=== PATIENT | female | born 1975 | race Caucasian/White ===

== ENCOUNTER 2017-04-08 18:43 | Emergency (ER) | payer OTHER ==
[~2017-04-08] VITALS: Ht 162.6 cm; Wt 98.0 kg
[~2017-04-08 18:43] MED LIST: ONDA8TAB6 PO
[2017-04-08 18:59] VITALS: TEMP 36.7; Ht 162.6 cm; Wt 98.0 kg
[2017-04-08] MEDS ORDERED: ONDANSETRON INJ 2 MG/ML 2 ML VIAL IV STA (19:04)
[2017-04-08] MEDS ORDERED: FAMOTIDINE IV INJ 20 MG in DEXTROSE 5% 100ML 100 ML IV STA (19:04)
[2017-04-08] MEDS ORDERED: LIDOCAINE HCL 2% VISC SOLN 20 ML UDC PO STA (19:04)
[2017-04-08] MEDS ORDERED: ALUMINUM/MAGNESIUM SUSP 30 ML UDC PO STA (19:04)
[2017-04-08] MEDS ORDERED: SERT50TA PO (19:28)
[2017-04-08 19:36] LABS: BASO % 0.3 %; BASO ABS # 0.02 K/uL (0-0.2); EOS % 0.2 %; EOS ABS # 0.01 K/uL (0-0.5); HEMATOCRIT 42.6 % (37-47); IG# 0.02 K/uL (0.00-0.02); LYMPH ABS # 2.43 K/uL (1.2-3.4); MEAN CELL VOLUME 86.6 fL (80-100); MEAN CORPUSCULAR HEMOGLOBIN 28.5 pg (25-34); MEAN CORPUSCULAR HGB CONC 32.9 g/dl (32-36); MEAN PLATELET VOLUME 10.6 fL (7.4-10.4); MONO % 14.4 %; NEUT % 45.8 %; NEUT ABS # 2.85 K/uL (1.4-6.5); PLATELET COUNT 270 K/uL (130-400); RED CELL DISTRIBUTION WIDTH CV 14.1 % (11.5-14.5); RED CELL DISTRIBUTION WIDTH SD 44.7 fL (36.4-46.3); WHITE BLOOD COUNT 6.23 K/uL (4.8-10.8)
[2017-04-08 20:14] LABS: ALBUMIN 3.6 gm/dl (3.4-5.0); ALKALINE PHOSPHATASE 90 U/L (45-117); ALT/SGPT 24 U/L (12-78); AST/SGOT 18 U/L (15-37); BLOOD UREA NITROGEN 18 mg/dl (7-18); CALCIUM 9.1 mg/dl (8.5-10.1); CARBON DIOXIDE 27 mmol/L (21-32); CREATININE 0.86 mg/dl (0.60-1.20); GLUCOSE 98 mg/dl (70-99); LIPASE 122 U/L (73-393); POTASSIUM 3.5 mmol/L (3.5-5.1); SODIUM 143 mmol/L (136-145); TOTAL PROTEIN 7.8 gm/dl (6.4-8.2)
[2017-04-08 20:22] LABS: INFLUENZA B ANTIGEN Neg for Influ B (NEG)
--- NOTE | 2017-04-08 20:39 | DIAGNOSTIC IMAGING REPORT ---
CHEST 2 VIEWS ROUTINE HISTORY: Fever. COMPARISON: Chest 12/25/2014. FINDINGS: The lungs are clear. Cardiac silhouette is normal in size. No pleural effusions. No pneumothorax. Prior cholecystectomy. IMPRESSION: No acute process. Electronically signed by: Derrick Velázquez M.D. 04/08/2017 8:38 PM Dictated Date/Time: 04/08/2017 8:36 PM
[2017-04-08] MEDS ORDERED: OPTIRAY 320 IV PRN (21:45)
--- NOTE | 2017-04-08 22:19 | DIAGNOSTIC IMAGING REPORT ---
ABDOMEN AND PELVIS CT WITH IV AND ORAL CONTRAST CT DOSE: 1119.60 mGy.cm HISTORY: Generalized abdominal pain. Crohn's disease. TECHNIQUE: Multiaxial CT images of the abdomen and pelvis were performed following the use of intravenous and oral contrast. A dose lowering technique was utilized adhering to the principles of ALARA. COMPARISON STUDY: Abdomen and pelvis CT 10/10/2011. FINDINGS: The lung bases are clear. No pneumoperitoneum. No pneumatosis. No fractures within the visualized osseous structures. Cholecystectomy. The liver, pancreas, spleen, adrenal glands are unremarkable. Punctate bilateral renal axillae. No ureteral calculi. No hydronephrosis. There are few hypodense lesions within the kidneys. These are subcentimeter in size and therefore too small to characterize. Statistically these represent cysts. No retroperitoneal lymphadenopathy. Normal bladder. No bowel wall thickening or obstruction. Normal appendix. IMPRESSION: 1. No bowel wall thickening or obstruction. 2. Normal appendix. 3. Bilateral nephrolithiasis. No ureteral stones. No hydronephrosis. Electronically signed by: Derrick Velázquez M.D. 04/08/2017 10:17 PM Dictated Date/Time: 04/08/2017 10:11 PM
[2017-04-08] MEDS ORDERED: SUCR1TAB29 PO (22:32)
[2017-04-08] MEDS ORDERED: PRT/20 PO (22:32)
[2017-04-08 22:43] VITALS: BP 108/70; PULSE 77; O2SAT 95
[2017-04-08] MEDS ORDERED: ONDA4TAB10 SL (23:39)
--- NOTE | 2017-04-09 00:07 | EMERGENCY ROOM VISIT NOTE ---
History Report prepared by Eduardo: Sarah Manley Under the Supervision of: Dr. Cristo Liu M.D. First contact with patient: 18:53 Chief Complaint: ABDOMINAL PAIN Stated Complaint: ABD PAIN, BLACK TARRY STOLE History of Present Illness The patient is a 41 year old female who presents to the Emergency Room with complaints of constant upper abdominal pain since April 04, 2017. She describes the pain as sharp and is radiating straight to her back. She notes that she could not sleep due to the pain. She currently rates her pain a 7/10 in severity. She notes nausea associated with the pain. She noticed black tarry stools last night and then took Pepto Bismol after she noticed the stools. She describes it as diarrhea with soft stools. She was recently seen by her PCP for strep throat and an upper respiratory infection. She was prescribed Prednisone and Zithromax. She notes chest pain that began this morning and has worsened. She notes that she feels feverish, though has not checked her temperature. She reports body aches, coughs, dizziness, and general weakness. She denies any blood in urine or other urinary symptoms. She has a history of hysterectomy, cholecystectomy, H. pylori, and ulcers. She also states a history of Crohn's disease, though she has not had a flare up in six years. Source of History: patient Onset: April 04, 2017 Position: abdomen (upper) Symptom Intensity: 7/10 Quality: sharp Timing: constant Associated Symptoms: + cough, + chest pain, + nausea, + back pain ( abdominal pain radiating straight to back), + diarrhea (soft stools), + weakness (general), No urinary symptoms (no blood in urine) Note: She notes black tarry stools. She feels feverish. She reports body aches and dizziness. Review of Systems See HPI for pertinent positives & negatives. A total of 10 systems reviewed and were otherwise negative. Past Medical & Surgical Medical Problems: (1) Crohns disease (2) Gastroenteritis (3) Headache (4) Migraine (5) Migraine Unspecified W/O Intract Mgrn W/O Status Migrainosus (6) Renal Colic (7) Tachycardia Family History FH: lung disease FHx: cancer FHx: gallbladder disease Social History Smoking Status: Former Smoker Alcohol Use: none Marital Status: Housing Status: lives with family Occupation Status: employed Current/Historical Medications Scheduled Ondasetron Odt (Zofran Odt), 4 MG SL Q6H Pantoprazole (Protonix), 20 MG PO DAILY Sertraline (Zoloft), 50 MG PO DAILY Sucralfate (Carafate), 1 GM PO Q6 Scheduled PRN Ondansetron Hcl (Zofran), 8 MG PO Q6H PRN for Nausea Allergies Coded Allergies: No Known Allergies (Verified , 04/08/17) Physical Exam Vital Signs Date Time Temp Pulse Resp B/P (MAP) Pulse Ox O2 Delivery O2 Flow Rate FiO2 04/08/17 22:43 77 16 108/70 95 04/08/17 21:19 81 16 120/83 94 Room Air 04/08/17 20:08 78 16 120/83 98 Room Air 04/08/17 18:59 36.7 96 18 124/79 97 Room Air Physical Exam Constitutional: Vital signs reviewed. Eyes: Pupils are equal round reactive to light. Conjunctiva are noninjected. ENT: Pharynx is clear without erythema or exudate. Mucous membranes are moist. Neck supple without meningeal signs. Respiratory: Clear to auscultation bilaterally. Breath sounds are equal bilaterally. Cardiovascular: Regular rate and rhythm. No rubs or gallops. GI: Soft, nondistended and epigastric tenderness, no guarding. Bowel sounds are present. Musculoskeletal: No peripheral edema. No CVA tenderness. Integumentary: No cyanosis. Neurological: The patient is awake and alert. No focal deficits. Psychiatric: Normal affect. Medical Decision & Procedures ER Provider Diagnostic Interpretation: Radiology results as stated below per my review and the radiologist's interpretation: CHEST 2 VIEWS ROUTINE HISTORY: Fever. COMPARISON: Chest 12/25/2014. FINDINGS: The lungs are clear. Cardiac silhouette is normal in size. No pleural effusions. No pneumothorax. Prior cholecystectomy. IMPRESSION: No acute process. Electronically signed by: Derrick Velázquez M.D. 04/08/2017 8:38 PM Dictated Date/Time: 04/08/2017 8:36 PM ABDOMEN AND PELVIS CT WITH IV AND ORAL CONTRAST CT DOSE: 1119.60 mGy.cm HISTORY: Generalized abdominal pain. Crohn's disease. TECHNIQUE: Multiaxial CT images of the abdomen and pelvis were performed following the use of intravenous and oral contrast. A dose lowering technique was utilized adhering to the principles of ALARA. COMPARISON STUDY: Abdomen and pelvis CT 10/10/2011. FINDINGS: The lung bases are clear. No pneumoperitoneum. No pneumatosis. No fractures within the visualized osseous structures. Cholecystectomy. The liver, pancreas, spleen, adrenal glands are unremarkable. Punctate bilateral renal axillae. No ureteral calculi. No hydronephrosis. There are few hypodense lesions within the kidneys. These are subcentimeter in size and therefore too small to characterize. Statistically these represent cysts. No retroperitoneal lymphadenopathy. Normal bladder. No bowel wall thickening or obstruction. Normal appendix. IMPRESSION: 1. No bowel wall thickening or obstruction. 2. Normal appendix. 3. Bilateral nephrolithiasis. No ureteral stones. No hydronephrosis. Electronically signed by: Derrick Velázquez M.D. 04/08/2017 10:17 PM Dictated Date/Time: 04/08/2017 10:11 PM Laboratory Results 04/08/17 19:15 Red Blood Count 4.92, Mean Corpuscular Volume 86.6, Mean Corpuscular Hemoglobin 28.5, Mean Corpuscular Hemoglobin Concent 32.9, Mean Platelet Volume 10.6, Neutrophils (%) (Auto) 45.8, Lymphocytes (%) (Auto) 39.0, Monocytes (%) (Auto) 14.4, Eosinophils (%) (Auto) 0.2, Basophils (%) (Auto) 0.3, Neutrophils # (Auto ) 2.85, Lymphocytes # (Auto) 2.43, Monocytes # (Auto) 0.90, Eosinophils # (Auto ) 0.01, Basophils # (Auto) 0.02 04/08/17 19:15 Test 04/08/17 19:05 04/08/17 19:15 04/08/17 21:45 Influenza Type A Antigen Neg for Influ A (NEG) Influenza Type B Antigen Neg for Influ B (NEG) White Blood Count 6.23 K/uL (4.8-10.8) Red Blood Count 4.92 M/uL (4.2-5.4) Hemoglobin 14.0 g/dL (12.0-16.0) Hematocrit 42.6 % (37-47) Mean Corpuscular Volume 86.6 fL (80-100) Mean Corpuscular Hemoglobin 28.5 pg (25-34) Mean Corpuscular Hemoglobin Concent 32.9 g/dl (32-36) Platelet Count 270 K/uL (130-400) Mean Platelet Volume 10.6 fL (7.4-10.4) Neutrophils (%) (Auto) 45.8 % Lymphocytes (%) (Auto) 39.0 % Monocytes (%) (Auto) 14.4 % Eosinophils (%) (Auto) 0.2 % Basophils (%) (Auto) 0.3 % Neutrophils # (Auto) 2.85 K/uL (1.4-6.5) Lymphocytes # (Auto) 2.43 K/uL (1.2-3.4) Monocytes # (Auto) 0.90 K/uL (0.11-0.59) Eosinophils # (Auto) 0.01 K/uL (0-0.5) Basophils # (Auto) 0.02 K/uL (0-0.2) RDW Standard Deviation 44.7 fL (36.4-46.3) RDW Coefficient of Variation 14.1 % (11.5-14.5) Immature Granulocyte % (Auto) 0.3 % Immature Granulocyte # (Auto) 0.02 K/uL (0.00-0.02) Anion Gap 8.0 mmol/L (3-11) Est Creatinine Clear Calc Drug Dose 96.9 ml/min Estimated GFR () 96.6 Estimated GFR (Non- 83.3 BUN/Creatinine Ratio 21.3 (10-20) Calcium Level 9.1 mg/dl (8.5-10.1) Total Bilirubin 0.2 mg/dl (0.2-1) Direct Bilirubin < 0.1 mg/dl (0-0.2) Aspartate Amino Transf (AST/SGOT) 18 U/L (15-37) Alanine Aminotransferase (ALT/SGPT) 24 U/L (12-78) Alkaline Phosphatase 90 U/L (45-117) Total Protein 7.8 gm/dl (6.4-8.2) Albumin 3.6 gm/dl (3.4-5.0) Lipase 122 U/L (73-393) Urine Color YELLOW Urine Appearance CLEAR (CLEAR) Urine pH 6.0 (4.5-7.5) Urine Specific [place] 1.045 (1.000-1.030) Urine Protein NEG (NEG) Urine Glucose (UA) NEG (NEG) Urine Ketones NEG (NEG) Urine Occult Blood NEG (NEG) Urine Nitrite NEG (NEG) Urine Bilirubin NEG (NEG) Urine Urobilinogen NEG (NEG) Urine Leukocyte Esterase NEG (NEG) Laboratory results as reviewed by me. Medications Administered Medications (Trade) Dose Ordered Sig/Alicia Route Start Time Stop Time Status Last Admin Dose Admin Ondansetron HCl (Zofran Inj) 4 mg NOW STAT IV 04/08/17 19:04 04/08/17 19:07 DC 04/08/17 19:25 4 MG Lidocaine HCl (Viscous Lidocaine 2% Soln) 10 ml NOW STAT PO 04/08/17 19:04 04/08/17 19:07 DC 04/08/17 19:25 10 ML Al Hydroxide/Mg Hydroxide (Maalox Susp) 30 ml NOW STAT PO 04/08/17 19:04 04/08/17 19:07 DC 04/08/17 19:25 30 ML Famotidine 20 mg/ Dextrose 102 ml @ 200 mls/hr ONE STAT IV 04/08/17 19:04 04/08/17 19:34 DC 04/08/17 19:26 200 MLS/HR ECG Indication: abdominal pain Rate (beats per minute): 82 Rhythm: normal sinus Findings: no acute ischemic change, no ectopy Change: Patient's electrocardiogram per my interpretation. ED Course 1855: The patient was evaluated in room C10. A complete history and physical exam was performed. 1903: Ordered Famotidine 20 mg/Dextrose 102 ml @ 200 mls/hr IV, Maalox 30 ml PO , Lidocaine 10 ml PO, and Zofran 4 mg IV 2030: I reassessed the patient at this time. The patient notes black stools, though is guaiac negative. She states her pain is unchanged, though does not want any more medication. 8: I reassessed the patient at this time. She is feeling better and resting comfortably. I discussed the results and treatment plan with the patient. I answered all pertaining questions that she had. She expressed understanding and verbalized agreement. The patient will be discharged home. Medical Decision This is a 41-year-old female presents with upper abdominal pain and cold symptoms. Differential diagnosis includes peptic ulcer disease, gastritis, upper GI bleed, Crohn's disease exacerbation, colitis, pneumonia, influenza. I did perform a limited focused review of portions of the patient's old chart on the electronic medical record. The patient has had no recent pertinent visits to this hospital. I did evaluate the patient as noted above. The patient did perform her own guaiac examination. She had black stool which was guaiac negative. IV access was established. I did treat patient with IV Zofran. She was also given Pepcid 20 mg IV and a GI cocktail. I did order and personally review the patient's 12-lead EKG and chest x-ray as described above. She has no evidence of pneumonia. Urinalysis is unremarkable. I did order and review the patient' s blood work as noted in the electronic medical record. Her white blood cell count is not elevated. Lipase and LFTs are unremarkable. I did order a CT of the abdomen and pelvis. I did review the images myself as well as the radiology report as described above. There is no evidence of acute process in the abdomen or pelvis. Rapid flu testing is negative. I did discuss the test results with the patient. I did recommend she stop the prednisone. The patient was discharged with a prescription for Carafate, Zofran and Protonix. She was advised follow closely with her doctor and discharged in good condition. She was given return instructions as outlined below. Medication Reconcilliation Current Medication List: was personally reviewed by me Blood Pressure Screening Patient's blood pressure: Normal blood pressure Impression Primary Impression: Epigastric abdominal pain Additional Impression: Sinusitis Scribe Attestation The scribe's documentation has been prepared under my direct and personally reviewed by me in its entirety. I confirm that the note above accurately reflects all work, treatment, procedures, and medical decision making performed by me. Departure Information Dispostion Home / Self-Care Prescriptions Ondasetron Odt (ZOFRAN ODT) 4 Mg Tab 4 MG SL Q6H for Nausea, #10 TAB Prov: Cristo Liu M.D. 04/08/17 Pantoprazole (Protonix) 20 Mg Tab 20 MG PO DAILY for 20 Days, #20 TAB Prov: Cristo Liu M.D. 04/08/17 Sucralfate (CARAFATE) 1 Gm Tab 1 GM PO Q6 for 7 Days, #28 TAB Prov: Cristo Liu M.D. 04/08/17 Referrals No Doctor, Assigned (PCP) Forms Call Back Authorization, HOME CARE DOCUMENTATION FORM, IMPORTANT VISIT INFORMATION Patient Instructions ED Abdominal Pain Unkn Cause, My [facility] Additional Instructions You have been examined and treated today on an emergency basis only. This is not a substitute for, or an effort to provide, complete comprehensive medical care. It is impossible to recognize and treat all injuries or illnesses in a single emergency department visit. It is therefore important that you follow up closely with your physician. Call as soon as possible for an appointment. Return for worsening symptoms or if you develop fever, vomiting, rectal bleeding or any other concerning symptoms. Problem Qualifiers Additional Impression: Sinusitis Sinusitis location: unspecified location Chronicity: acute Recurrence: not specified as recurrent Qualified Codes: J01.90 - Acute sinusitis, unspecified
== END 2017-04-08 22:43 | disposition home or self-care (01) ==
LOC: C.EDB 18:44 → C.EDC 22:43
DX: R10.13 Epigastric pain (principal); J01.90 Acute sinusitis, unspecified; M54.9 Dorsalgia, unspecified; R11.0 Nausea; R19.7 Diarrhea, unspecified; R05 Cough; K50.90 Crohn's disease, unspecified, without complications; Z79.899 Other long term (current) drug therapy; Z87.19 Personal history of other diseases of the digestive system; Z87.448 Personal history of other diseases of urinary system; Z87.891 Personal history of nicotine dependence

== ENCOUNTER 2019-02-24 04:24 | Observation (INO) ==
[2019-02-24] MEDS ORDERED: ONDANSETRON INJ 2 MG/ML 2 ML VIAL IV STA ×2 (04:28→06:21)
[2019-02-24] MEDS ORDERED: KETOROLAC 30 MG/ML VIAL IV STA (04:28)
[2019-02-24] MEDS ORDERED: HYDROmorphone INJ 1 MG/ML SYRINGE IV STA (04:28)
[2019-02-24] MEDS ORDERED: SODIUM CHLORIDE 0.9% 1000ML 1,000 ML IV ONE (04:28)
--- NOTE | 2019-02-24 04:32 | Emergency Department Note ---
ED Provider Note Name: DEANDRE CARRIZALES Age: 43 Arrives Via: Walk-In Informant: Patient CC: Left flank pain HPI: 43F arrives for evaluation of left flank pain. Patient with long history renal colic and previous urologic procedures arrives with acute left flank pain. 6 months ago with lithotripsy and persistent pain which slowly resolved over several weeks. Was feeling well without issues last few months until a few days ago. Gradually waxing/waning left flank pain for last few days. Severely worse this evening. Associated nausea. Tylenol without improvement. Nothing makes better nor worse. No trauma/injuries. Denies urinary burning, fevers, chills, vomiting, abdominal pain, sob, cp, headache, neck pain, rashes, leg swelling nor other symptoms. She has had many previous episodes of renal colic and this is similar. ROS: See above HPI for pertinent positives & negatives. A total of 10 systems reviewed and were otherwise negative. Past Medical History:Migraines, Kidney Stones Past Surgical History:Urologic procedures, hysterectomy, cholecystectomy Family History:Lung disease, cancer Social History:, Lives with family, non smoker (+previous), occasional etoh Home Medications:None Allergies:None Vitals:BP 147/90, P 107, R 18, T 36.6, O2 99% Physical Exam: GENERAL: Patient is very uncomfortable appearing and in moderate distress, crying EYES: No scleral icterus, unremarkable pupils. ENT: Mucous membranes moist, no nasal congestion. NECK: No masses appreciated, nomeningismus, trachea is midline. RESPIRATORY: No dyspnea. Clear to auscultation and equal bilaterally. No wheeze, no rhonchi. CARDIOVASCULAR: Regular rate and rhythm.No murmurs, rubs, gallops appreciated. GASTROINTESTINAL: Abdomen soft, non-tender, no peritonitis.Bowel sounds positive.No masses appreciated. BACK: No midline tenderness, +++ left CVA tenderness EXTREMITIES: Normal motion all extremities, no cyanosis, no edema. NEUROLOGIC: Alert and oriented, no acute motor or sensory deficits, no focal weakness, cranial nerves grossly intact. SKIN: No rash, no jaundice, no diaphoresis. ED Course: Prior Medical Record, Triage/Nursing Notes, Medications, Allergies reviewed by Me Vital Signs: reviewed and remarkable for Tachy Labs:Reviewed and remarkable for no significant abnormalities Interventions: Saline lock, dilaudid 1mg IV x 2, Toradol 30mg IV, Zofran 4mg IV, NSS bolus Imaging:[facility] Radiologist interpretation reviewed by me: US Renal. non obstructing renal calculus no hydro Reassessments/Times: Improvement though still uncomfortable Blood pressure:Normal.No Referral necessary Disposition:Hospitalization Differentials:Renal colic, renal failure, aaa rupture/dissection, diverticulitis, uti/pyelo, obstructions amongst other pathologies. 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 Labs unremarkable and UA without blood. KUB with small renal stones and US without obstruction. Continued pain despite multiple rounds pain meds and agreeable to going ahead with CT abdo/pelv. CT without any clear abnormalities. Patient still requiring further IV narcotics for pain control and thus I consulted Hospitalist for further monitoring/management. Impression: Acute Left Flank Pain Intractable Abdominal Pain Fabian Justice MD Impression & Plan Acute left flank pain, Intractable abdominal pain Past Med/Surg History Medical History Crohns disease NO MEDICATIONS. WELL CONTROLLED WITH DIET. GERD (gastroesophageal reflux disease) CURRENT, NO MEDS Kidney stones Migraine CONTROLLED LATELY Sinus tachycardia OCCASIONAL. USED TO SEE DR DANG. NO PROBLEMS CURRENTLY. Surgical History H/O bilateral breast reduction surgery H/O wrist surgery LEFT History of colonoscopy History of esophagogastroduodenoscopy (EGD) History of hysterectomy MIREYA BSO History of laparoscopy History of lithotripsy Hx of cholecystectomy LAP Family History Uncle Family history of diabetes mellitus Father FHx: prostate cancer Social History Preferred Language: Serbian Communication Ability: Effective Visual Impairment: No Limitations [place] Required: No Beliefs That Will Affect Care: None Current Living Situation: Significant Other Current Living Situation Comment: BOYFRIEND, AUNT , DAUGHTER AND SON IN LAW Feels Safe at Home: Yes Smoking Status: Former smoker Tobacco Type: cigarettes ; Second Hand Exposure: No ; Hx Alcohol Use: No Hx Substance Use: No Results & Data Vital Signs Vital Signs - 24 hr 02/24/19 04:23 02/24/19 04:53 02/24/19 05:20 Temperature 36.6 C Temperature Source Oral Pulse Rate 107 Pulse Rate [Right Finger] 98 H 86 Pulse Rhythm [Right Finger] Regular Respiratory Rate 18 16 14 Respiratory Effort / Characteristics Non-Labored Non-Labored Respiratory Depth Normal Normal Blood Pressure 147/90 Blood Pressure [Right Arm] 129/79 112/73 Blood Pressure Mean 109 Blood Pressure Mean [Right Arm] 95 86 Blood Pressure Position Sitting Blood Pressure Position [Right Arm] Lying Pulse Oximetry 99 100 97 Oxygen Delivery Method Room Air Room Air Laboratory Data Result diagrams: 02/24/19 04:25 02/24/19 04:25 Lab Results 02/24/19 02/24/19 02/24/19 Range/Units 04:25 04:25 04:38 WBC 9.52 (4.8-10.8) K/uL RBC 4.94 (4.2-5.4) M/uL Hgb 14.0 (12.0-16.0) g/dL Hct 43.3 (37-47) % MCV 87.7 (80-100) fL MCH 28.3 (25-34) pg MCHC 32.3 (32-36) g/dL RDW Std Deviation 45.3 (36.4-46.3) fL RDW Coeff of Tisha 14.1 (11.5-14.5) % Plt Count 316 (130-400) K/uL MPV 10.4 (7.4-10.4) fL Immature Gran % (Auto) 0.3 % Neut % (Auto) 57.6 % Lymph % (Auto) 31.7 % [place] % (Auto) 9.6 % Eos % (Auto) 0.6 % Baso % (Auto) 0.2 % Immature Gran # (Auto) 0.03 H (0.00-0.02) K/uL Neut # (Auto) 5.48 (1.4-6.5) K/uL Lymph # (Auto) 3.02 (1.2-3.4) K/uL [place] # (Auto) 0.91 H (0.11-0.59) K/uL Eos # (Auto) 0.06 (0-0.5) K/uL Baso # (Auto) 0.02 (0-0.2) K/uL Sodium 141 (136-145) mmol/L Potassium 4.3 (3.5-5.1) mmol/L Chloride 108 H (98-107) mmol/L Carbon Dioxide 29 (21-32) mmol/L Anion Gap 4.0 (3-11) BUN 18 (7-18) mg/dl Creatinine 0.95 (0.6-1.2) mg/dl Est Cr Clr Drug Dosing 88.2 ml/min Est GFR ( Amer) 84.4 Est GFR (Non-Af Amer) 72.8 BUN/Creatinine Ratio 19.4 (10-20) Glucose 110 H (70-99) mg/dl Calcium 9.5 (8.5-10.1) mg/dl Total Bilirubin 0.3 (0.2-1) mg/dl Direct Bilirubin < 0.1 (0-0.2) mg/dl AST 12 L (15-37) U/L ALT 19 (12-78) U/L Alkaline Phosphatase 106 (45-117) U/L Total Protein 7.9 (6.4-8.2) gm/dl Albumin 3.7 (3.4-5.0) gm/dl Lipase 106 (73-393) U/L Specimen Hemolysis Urine Color Yellow Urine Appearance Slightly Cloudy (Clear) Urine pH 7.0 (4.5-7.5) Ur Specific [place] 1.015 (1.000-1.030) Urine Protein Negative (Negative) Urine Glucose (UA) Negative (Negative) Urine Ketones Negative (Negative) Urine Blood Negative (Negative) Urine Nitrite Negative (Negative) Urine Bilirubin Negative (Negative) Urine Urobilinogen Negative (Negative) Ur Leukocyte Esterase 2+ H (Negative) Urine RBC 0-4 (0-4) /hpf Urine WBC >30 H (0-5) /hpf Ur Epithelial Cells >30 H (0-5) /lpf Urine Bacteria 2+ H (Negative) Urine Mucus Present A (None Prsent) Urine Test (Negative) 02/24/19 Range/Units 04:38 WBC (4.8-10.8) K/uL RBC (4.2-5.4) M/uL Hgb (12.0-16.0) g/dL Hct (37-47) % MCV (80-100) fL MCH (25-34) pg MCHC (32-36) g/dL RDW Std Deviation (36.4-46.3) fL RDW Coeff of Tisha (11.5-14.5) % Plt Count (130-400) K/uL MPV (7.4-10.4) fL Immature Gran % (Auto) % Neut % (Auto) % Lymph % (Auto) % [place] % (Auto) % Eos % (Auto) % Baso % (Auto) % Immature Gran # (Auto) (0.00-0.02) K/uL Neut # (Auto) (1.4-6.5) K/uL Lymph # (Auto) (1.2-3.4) K/uL [place] # (Auto) (0.11-0.59) K/uL Eos # (Auto) (0-0.5) K/uL Baso # (Auto) (0-0.2) K/uL Sodium (136-145) mmol/L Potassium (3.5-5.1) mmol/L Chloride (98-107) mmol/L Carbon Dioxide (21-32) mmol/L Anion Gap (3-11) BUN (7-18) mg/dl Creatinine (0.6-1.2) mg/dl Est Cr Clr Drug Dosing ml/min Est GFR ( Amer) Est GFR (Non-Af Amer) BUN/Creatinine Ratio (10-20) Glucose (70-99) mg/dl Calcium (8.5-10.1) mg/dl Total Bilirubin (0.2-1) mg/dl Direct Bilirubin (0-0.2) mg/dl AST (15-37) U/L ALT (12-78) U/L Alkaline Phosphatase (45-117) U/L Total Protein (6.4-8.2) gm/dl Albumin (3.4-5.0) gm/dl Lipase (73-393) U/L Specimen Hemolysis Urine Color Urine Appearance (Clear) Urine pH (4.5-7.5) Ur Specific [place] (1.000-1.030) Urine Protein (Negative) Urine Glucose (UA) (Negative) Urine Ketones (Negative) Urine Blood (Negative) Urine Nitrite (Negative) Urine Bilirubin (Negative) Urine Urobilinogen (Negative) Ur Leukocyte Esterase (Negative) Urine RBC (0-4) /hpf Urine WBC (0-5) /hpf Ur Epithelial Cells (0-5) /lpf Urine Bacteria (Negative) Urine Mucus (None Prsent) Urine Test Negative (Negative) Administered Medications Discontinued Medications Hydromorphone HCl (Dilaudid) 1 mg IV NOW STA Stop: 02/24/19 04:29 Last Admin: 02/24/19 04:34 Dose: 1 mg Documented by: [id number] Hydromorphone HCl (Dilaudid) 1 mg IV Q15M PRN PRN Reason: Pain Stop: 03/10/19 04:27 Last Admin: 02/24/19 07:54 Dose: 1 mg Documented by: [id number] Admin: 02/24/19 06:18 Dose: 1 mg Documented by: [id number] Admin: 02/24/19 04:50 Dose: 1 mg Documented by: [id number] Sodium Chloride (Nss 1000ml) 1,000 mls @ 999 mls/hr IV .Q1H1M ONE Stop: 02/24/19 05:28 Last Infusion: 02/24/19 05:55 Dose: 0 mls/hr Documented by: [id number] Admin: 02/24/19 04:34 Dose: 999 mls/hr Documented by: [id number] Sodium Chloride (Nss 1000ml) 1,000 mls @ 100 mls/hr IV .Q10H CELINA Stop: 03/26/19 08:04 Last Infusion: 02/24/19 16:12 Dose: 0 mls/hr Documented by: [id number] Admin: 02/24/19 08:23 Dose: 100 mls/hr Documented by: [id number] Ceftriaxone Sodium (Rocephin) 2,000 mg in 70 mls @ 140 mls/hr IV NOW STA Stop: 02/24/19 08:45 Last Infusion: 02/24/19 11:01 Dose: 0 mls/hr Documented by: [id number] Admin: 02/24/19 10:06 Dose: 140 mls/hr Documented by: [id number] Ioversol (Optiray 320 100ml) 94 ml IV ONCE PRN PRN Reason: Interaction Checking Stop: 02/28/19 06:09 Last Admin: 02/24/19 06:10 Dose: 94 ml Documented by: [id number] Ketorolac Tromethamine (Toradol) 30 mg IV NOW STA Stop: 02/24/19 04:29 Last Admin: 02/24/19 04:34 Dose: 30 mg Documented by: [id number] Ondansetron HCl (Zofran) 4 mg IV NOW STA Stop: 02/24/19 04:29 Last Admin: 02/24/19 04:34 Dose: 4 mg Documented by: [id number] Ondansetron HCl (Zofran) 4 mg IV NOW STA Stop: 02/24/19 06:22 Last Admin: 02/24/19 06:25 Dose: 4 mg Documented by: [id number] Ondansetron HCl (Zofran) 4 mg IV Q6H PRN PRN Reason: Nausea Stop: 03/26/19 08:04 Last Admin: 02/24/19 09:15 Dose: 4 mg Documented by: [id number] Discharge Plan Visit Data *Final* Discharge Date/Time: 02/24/19 08:00 Chief Complaint: Flank Pain ED Provider: Fabian Justice Discharge Problem: Acute left flank pain, Intractable abdominal pain Patient Disposition: Admitted As Inpatient Condition: Good Discharge Instructions Interventions: ED Discharge Assessment Last Done: 02/24/19 08:00
[2019-02-24 04:39] LABS: Basophils # (auto) 0.02 K/uL (0-0.2); Basophils % (auto) 0.2 %; Eosinophils # (auto) 0.06 K/uL (0-0.5); Eosinophils % (auto) 0.6 %; Hematocrit (blood only) 43.3 % (37-47); Immature Granulocytes # (auto) 0.03 K/uL (0.00-0.02); Immature Granulocytes % (auto) 0.3 %; Lymphocytes # (auto) 3.02 K/uL (1.2-3.4); Lymphocytes % (auto) 31.7 %; Mean Corpuscular Hemoglobin 28.3 pg (25-34); Mean Corpuscular Hgb Conc 32.3 g/dL (32-36); Mean Corpuscular Volume 87.7 fL (80-100); Mean Platelet Volume 10.4 fL (7.4-10.4); Monocytes # (auto) 0.91 K/uL (0.11-0.59); Monocytes % (auto) 9.6 %; Neutrophils # (auto) 5.48 K/uL (1.4-6.5); Neutrophils % (auto) 57.6 %; Platelet Count 316 K/uL (130-400); RDW Coefficient of Variation 14.1 % (11.5-14.5); RDW Standard Deviation 45.3 fL (36.4-46.3); Red Blood Count 4.94 M/uL (4.2-5.4); White Blood Count 9.52 K/uL (4.8-10.8)
[2019-02-24] MEDS: HYDROmorphone INJ 1 MG/ML SYRINGE IV PRN ×3 (04:50→07:54)
[2019-02-24 04:57] LABS: Pregnancy Test, Urine Negative (Negative)
[2019-02-24 05:01] LABS: Appearance Urine Slightly Cloudy (Clear); Bilirubin Urine Negative (Negative); Blood Urine Negative (Negative); Color Urine Yellow; Glucose Urine UA Negative (Negative); Ketones Urine Negative (Negative); Leukocyte Esterase Urine 2+ (Negative); Nitrite Urine Negative (Negative); Protein Urine Negative (Negative); Specific Gravity Urine 1.015 (1.000-1.030); Urobilinogen Urine Negative (Negative)
[2019-02-24 05:09] LABS: Epithelial Cell Urine >30 /lpf (0-5)
[2019-02-24 05:10] LABS: Mucus Urine Present (None Prsent); RBC Urine 0-4 /hpf (0-4); WBC Urine >30 /hpf (0-5)
[2019-02-24 05:11] LABS: Bacteria Urine 2+ (Negative)
[2019-02-24 05:23] LABS: Alanine Aminotransferase 19 U/L (12-78); Albumin Level 3.7 gm/dl (3.4-5.0); Alkaline Phosphatase 106 U/L (45-117); Aspartate Aminotransferase 12 U/L (15-37); BUN Creatinine Ratio 19.4 (10-20); Bilirubin Direct < 0.1 mg/dl (0-0.2); Bilirubin,Total 0.3 mg/dl (0.2-1); Blood Urea Nitrogen 18 mg/dl (7-18); Calcium 9.5 mg/dl (8.5-10.1); Carbon Dioxide 29 mmol/L (21-32); Chloride 108 mmol/L (98-107); Creatinine Clr Calc Pharmacy 88.2 ml/min; Est GFR (African American) 84.4; Est GFR (Non-African American) 72.8; Glucose 110 mg/dl (70-99); Lipase 106 U/L (73-393); Potassium 4.3 mmol/L (3.5-5.1); Sodium 141 mmol/L (136-145); Total Protein 7.9 gm/dl (6.4-8.2)
[2019-02-24] MEDS ORDERED: IOVERSOL 100ml IV PRN (06:10)
--- NOTE | 2019-02-24 06:34 | XRay Report ---
KUB HISTORY: Acute bilateral flank pain with renal calculi left flank pain COMPARISON: CT abdomen and pelvis of same day, KUB 08/01/2018. FINDINGS: The bowel gas pattern is non-obstructive. There is no organomegaly. Renal shadows are part ially obscured by bowel gas. Bilateral nephrolithiasis with calculi on the right measuring up to 5 mm and on the left measuring up to 4 mm. No ureteral calculi identified. There are multiple phleboliths of the pelvis redemonstrated. Cholecystectomy. No pneumoperitoneum or pneumatosis. Minimal convex ri ght curvature of the mid lumbar spine. No fracture. IMPRESSION: Bilateral nephrolithiasis without ureteral calculi identified. Electronically signed by: Tyler Fish M.D. 02/24/2019 6:33 AM
--- NOTE | 2019-02-24 06:40 | Ultrasound Report ---
US renal/blad retro comp HISTORY: 43 years-old Female left flank pain acute left-sided flank pain COMPARISON: CT abdomen and pelvis of same day TECHNIQUE: Multiple real-time sonographic images of the kidneys and urinary bladder were obtained ass essing grayscale appearance and color flow FINDINGS: Right kidney measures 11.5 x 5.7 x 7.1 cm. Nonobstructing 5 mm calculus of the superior pole right ki dney. No right-sided hydronephrosis or suspicious mass lesion identified. The left kidney measures 11 .0 x 6.0 x 7.0 cm and also demonstrates no hydronephrosis. There are at least two nonobstructing calc chinmay of the left kidney noted measuring up to 4 mm. No left-sided suspicious mass lesions identified. Decompressed urinary bladder. Only the left ureteral jet identified. IMPRESSION: 1. Nonobstructing bilateral nephrolithiasis without hydronephrosis. 2. Decompressed urinary bladder. The above report was generated using voice recognition software. It may contain grammatical, syntax o r spelling errors. Electronically signed by: Tyler Fish M.D. 02/24/2019 6:38 AM
--- NOTE | 2019-02-24 06:53 | CT Scan Report ---
CT OF THE ABDOMEN AND PELVIS WITH CONTRAST CLINICAL HISTORY: left flank pain COMPARISON STUDY: CT of the abdomen and pelvis September 26, 2018. Renal ultrasound KUB February 24, 2019 . TECHNIQUE: Following IV administration of 94 mL of Optiray-320, axial images of the abdomen and pelvi s were obtained from the lung bases to the proximal femurs. Images were reviewed in the axial, sagitt al, and coronal planes. IV contrast was administered without complication. Automated exposure contro l was utilized for the study. A dose lowering technique was utilized adhering to the principles of A VERONICA. CT DOSE: 1398.09 mGy.cm FINDINGS: Lung bases are unremarkable. There is no biliary ductal dilatation status post cholecystect katarzyna. Bilateral renal calculi measure up to 6 mm. One right renal calculus is noted. There are several left renal calculi. There are no ureteral calculi. There is no hydronephrosis or hydroureter. An 8 m m left renal cyst is noted. There is no pancreatic ductal dilatation. The spleen, adrenal glands and pancreas are unremarkable. Is no evidence for bowel obstruction. There is no lymphadenopathy or ascit es. There are no suspicious osseous lesions. The appendix is unremarkable. IMPRESSION: 1. Bilateral nephrolithiasis. 2. No ureteral calculi or hydronephrosis. 3. No acute process within the abdomen or pelvis. Electronically signed by: Don Campos M.D. 02/24/2019 6:51 AM
[2019-02-24] MEDS ORDERED: MAGNESIUM HYDROXIDE SUSP 30 ML UDC PO PRN (08:05)
[2019-02-24] MEDS ORDERED: ONDANSETRON INJ 2 MG/ML 2 ML VIAL IV PRN (08:05)
[2019-02-24] MEDS ORDERED: HYDROmorphone INJ 1 MG/ML SYRINGE IV PRN (08:05)
[2019-02-24] MEDS ORDERED: ACETAMINOPHEN 325 MG TAB PO PRN (08:05)
[2019-02-24] MEDS ORDERED: ALUMINUM/MAGNESIUM SUSP 30 ML UDC PO PRN (08:05)
[2019-02-24] MEDS ORDERED: SODIUM CHLORIDE 0.9% 1000ML 1,000 ML IV SCH (08:05)
[2019-02-24] MEDS ORDERED: ZOLPIDEM TARTRATE 5 MG TAB PO PRN (08:05)
[2019-02-24] MEDS ORDERED: KETOROLAC 30 MG/ML VIAL IV PRN (08:05)
[2019-02-24] MEDS ORDERED: POLYETHYLENE (MIRALAX) 17 GM PACK PO PRN (08:05)
[2019-02-24] MEDS ORDERED: cefTRIAXone SODIUM 2,000 MG/70 ML BAG IV STA (08:16)
--- NOTE | 2019-02-24 08:47 | History & Physical Report ---
Date of Service February 24, 2019 Assessment & Plan (1) Flank pain: Admit to [facility] for observation. Vital signs every 4 hours. IV fluid hydration with normal saline at 100 cc/h. Pending labs: Fasting lipid panel, A1c, BNP, TSH. Replenish electrolytes. Pain management with Dilaudid as needed. Antinausea medication as needed. Started ceftriaxone for presumptive urinary tract infection empirically. Follow-up urine culture. DVT prophylaxis: Patient at low risk, a young at and mobile. Will use teds and SCDs while in the bed. Full code (2) Urinary tract infection: Urinary culture pending. Started ceftriaxone 2 g IV every 24-empirically. Present on Admission?: Yes (3) Migraine: Stable now. Continue observing. Present on Admission?: Yes (4) Kidney stones: Continues IV fluid hydration. Strain all urines. Pain management and antinausea management. Present on Admission?: Yes (5) Metabolic syndrome: Will check fasting lipid panel and A1c.Pt recommended to try to lose 10-15 lbs, join weight watchers,intermittent fasting etc, exercises and healthy life style. Present on Admission?: Yes History of Present Illness Chief Complaint: Left flank pain Primary Care Provider: Mac Allan Patient is a 43 years old female with past medical history of kidney stones and nephrolithiasis who presented to the emergency room with a complaint of left flank pain. Patient has a long history of renal colic and previous urological procedures specifically 6 months ago with lithotripsy and persistent pain which slowly resolves over several weeks. Patient reports feeling left flank pain that started few days ago. Patient describes pain and waxing and waning, and occasional stabbing and throbbing. Pain does not move anywhere. Patient reports pain being worse at night and when pains comes. Patient also is nauseated but did not vomit. For relief patient tried Tylenol but that did not give her any relief and her pain is worsening. Patient reports no trauma or injury. Patient denies fever, chills, chest pain, shortness of breath, abdominal pain, frequency, urgency, hematuria, melena, hematemesis hemoptysis or nosebleeds. Patient reports having similar episodes of renal colic in the past. Labs are reviewed: WBC is 9.52, hemoglobin 14, hematocrit 43.3, platelets 316, sodium 141, potassium 4.3, chloride 108, BUN 18, creatinine 0.95, GFR 72.8, glucose 110, bilirubin 0.3, AST 12, ALT 19, lipase 106. Urine positive for leukocyte esterase 2+ WBCs of 30, and epithelial cells including bacteria which appears to be not a clean-catch but urinary tract infection cannot be excluded. Recently passed stone January 2018 shows calcium oxalate dihydrate 20% and calcium oxalate monohydrate 80%. Decision was made to admit patient to [facility] for observation related to left flank pain. Allergies Allergy/AdvReac Type Severity Reaction Status Date / Time No Known Allergies Allergy Mild Verified 11/21/18 10:34 Home Medications Home Medications Medication Instructions Recorded Confirmed Type ketorolac 1 dose IM DIRECTED PRN 03/05/18 11/21/18 History Past Med/Surg History Medical History Crohns disease NO MEDICATIONS. WELL CONTROLLED WITH DIET. GERD (gastroesophageal reflux disease) CURRENT, NO MEDS Kidney stones Migraine CONTROLLED LATELY Sinus tachycardia OCCASIONAL. USED TO SEE DR DANG. NO PROBLEMS CURRENTLY. 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 Beliefs That Will Affect Care: None Current Living Situation: Significant Other Current Living Situation Comment: BOYFRIEND, AUNT , DAUGHTER AND SON IN LAW Other Information That Helps Us Care for You: No Feels Safe at Home: Yes Safety Concerns: Feels Safe At This Time Smoking Status: Former smoker Tobacco Type: cigarettes ; Smoking End Date: 2007 ; Second Hand Exposure: No ; Hx Alcohol Use: No Hx Substance Use: No Review of Systems Review of Systems: All systems reviewed & are unremarkable except as noted in HPI & below Physical Exam Constitutional: WD/WN, vitals as above well developed Eyes: PERRL, conjunctivae normal, anicteric sclerae ENMT: external ear and nose normal, oropharynx normal Neck: trachea midline, no thyromegaly Respiratory: normal respiratory effort, lungs clear to auscultation Cardiovascular: RRR, no murmur, no edema Vessels: dorsalis pedis pulses present Gastrointestinal (Abdomen): normal bowel sounds, soft, nontender, no hepatosplenomegaly Left flank pain Musculoskeletal: no cyanosis or clubbing, extremities motor strength 5/5 Skin: no rashes, warm and dry Neurologic: patellar DTR's 2+ bilat, sensation intact Psychiatric: A+Ox3, euthymic affect Genitourinary: Left flank pain and mild suprapubic tenderness Lymphatic: no cervical or axillary lymphadenopathy Results & Data Vital Signs (Past 12 Hours) Vital Signs Temp Pulse Pulse Resp BP BP Pulse Ox 02/24/19 08:10 36.4 C L 66 14 102/71 02/24/19 07:57 84 20 111/73 92 02/24/19 06:51 80 16 110/58 L 97 02/24/19 06:17 83 16 118/71 97 02/24/19 05:20 86 14 112/73 97 02/24/19 04:53 98 H 16 129/79 100 02/24/19 04:23 36.6 C 107 18 147/90 99 Code Status & VTE Plan Code Status Full code VTE Prophylaxis Plan VTE Prophylaxis will be ordered: Yes PG Care Time/CCT Total # of Minutes Spent Total Time Spent with Patient: Total time spent is greater than 50% in coordi nation of care (as documented) at patient's floor/unit and/or counseling patient:
--- NOTE | 2019-02-24 18:11 | Discharge Summary ---
Date of Service February 24, 2019 Admission HPI Per Admitting Provider Patient is a 43 years old female with past medical history of kidney stones and nephrolithiasis who presented to the emergency room with a complaint of left flank pain. Patient has a long history of renal colic and previous urological procedures specifically 6 months ago with lithotripsy and persistent pain which slowly resolves over several weeks. Patient reports feeling left flank pain that started few days ago. Patient describes pain and waxing and waning, and occasional stabbing and throbbing. Pain does not move anywhere. Patient reports pain being worse at night and when pains comes. Patient also is nauseated but did not vomit. For relief patient tried Tylenol but that did not give her any relief and her pain is worsening. Patient reports no trauma or injury. Patient denies fever, chills, chest pain, shortness of breath, abdominal pain, frequency, urgency, hematuria, melena, hematemesis hemoptysis or nosebleeds. Patient reports having similar episodes of renal colic in the past. Labs are reviewed: WBC is 9.52, hemoglobin 14, hematocrit 43.3, platelets 316, sodium 141, potassium 4.3, chloride 108, BUN 18, creatinine 0.95, GFR 72.8, glucose 110, bilirubin 0.3, AST 12, ALT 19, lipase 106. Urine positive for leukocyte esterase 2+ WBCs of 30, and epithelial cells including bacteria which appears to be not a clean-catch but urinary tract infection cannot be excluded. Recently passed stone January 2018 shows calcium oxalate dihydrate 20% and calcium oxalate monohydrate 80%. Decision was made to admit patient to [facility] for observation related to left flank pain. Principal Diagnosis none Discharge Exam Constitutional WD/WN, vitals as above well developed Eyes PERRL, conjunctivae normal, anicteric sclerae ENMT external ear and nose normal, oropharynx normal Neck trachea midline, no thyromegaly Respiratory normal respiratory effort, lungs clear to auscultation Cardiovascular RRR, no murmur, no edema Vessels: dorsalis pedis pulses present Gastrointestinal (Abdomen) normal bowel sounds, soft, nontender, no hepatosplenomegaly Musculoskeletal no cyanosis or clubbing, extremities motor strength 5/5 Skin no rashes, warm and dry Neurologic patellar DTR's 2+ bilat, sensation intact Psychiatric A+Ox3, euthymic affect Lymphatic no cervical or axillary lymphadenopathy Discharge Data Allergies Allergy/AdvReac Type Severity Reaction Status Date / Time No Known Allergies Allergy Mild Verified 11/21/18 10:34 Consultations 02/24/19 06:57 ED Decision to Admit Stat Ordered Studies 02/24/19 04:28 US renal/blad retro comp Urgent 02/24/19 05:56 CT abd pelvis IV con only Urgent Hospital Course (1) Flank pain: Admit to [facility] for observation. Vital signs every 4 hours. IV fluid hydration with normal saline at 100 cc/h. Pending labs: Fasting lipid panel, A1c, BNP, TSH. Replenish electrolytes. Pain management with Dilaudid as needed. Antinausea medication as needed. Started ceftriaxone for presumptive urinary tract infection empirically. Follow-up urine culture. DVT prophylaxis: Patient at low risk, a young at and mobile. Will use teds and SCDs while in the bed. Full code (2) Urinary tract infection: Urinary culture pending. Started ceftriaxone 2 g IV every 24-empirically. (3) Migraine: Stable now. Continue observing. (4) Kidney stones: Continues IV fluid hydration. Strain all urines. Pain management and antinausea management. (5) Metabolic syndrome: Will check fasting lipid panel and A1c.Pt recommended to try to lose 10-15 lbs, join weight watchers,intermittent fasting etc, exercises and healthy life style. Total Time Total Time Spent Total Time Spent (In Minutes): over 30 min Discharge Plan Discharge Items Patient Disposition: Home - Self-Care Reason For Visit: LEFT FLANK PAIN Discharge Diagnosis: left flank pain, UTI Condition on Discharge: Good Activity: Resume your previous activity Non-emergency contact: Primary Care Provider Call non-emergency contact if: you have any medication questions, your symptoms worsen, your pain is not controlled, your pain is worsening, your pain is unusual for you, your pain is concerning for you, you have a fever and your temperature is above 101 Follow-up/Referrals: Mac Allan [Primary Care Provider] - Diet: Regular Addtl Attending Provider Instructions: Please follow-up with your primary care physician within 7 days. At that time we recommend you to check A1c and fasting lipid panel. We started treatment for urinary tract infection. Urine culture results is pending. We will start you on cefdinir 300 mg p.o. twice a day for 5 days for urinary tract infection. Please follow-up with your primary care physician with the results. Pending Studies at Discharge: Yes Studies:: Urine culture results Stand-Alone Forms: My [facility], Smoking Cessation Medications and DC Order Prescriptions: New cefdinir 300 mg capsule 300 mg PO BID 5 Days Qty: 10 RF: 0 Continued ketorolac 60 mg/2 mL solution 1 dose IM DIRECTED PRN (Reason: MIGRAINES) RF: 0 Discharge Orders: Discharge Order (Routine); Ordered 02/24/19 Ordered By: Carmen Linton/Other Patient Handouts: UTI Admission Data Admit Date/Time: 02/24/19 07:35 Attending Provider: Carmen Rockwell Admit Provider: Carmen Rockwell Primary Care Provider: Mac Allan Other Providers: Carmen Rockwell Other Interventions: Discharge Summary Assessment (RN) Last Done: 02/24/19 16:12 DC Date/Time DO NOT enter until pt leaves facility: 02/24/19 17:08
[2019-02-25] MEDS ORDERED: cefTRIAXone SODIUM 2,000 MG in DEXTROSE 5% 50 ML IV SCH (10:00)
== END 2019-02-24 17:08 | disposition home or self-care (01) ==
LOC: 3W 04:24 → ED 04:24 → 3W 08:00

== ENCOUNTER 2022-09-03 17:35 | Inpatient (IN) ==
[2022-09-03] MEDS ORDERED: ONDANSETRON INJ 2 MG/ML 2 ML VIAL IV STA (17:49)
[2022-09-03] MEDS ORDERED: MoRPHine SULFATE 4 MG/ML 1 ML CARP\\VIAL IV STA (17:49)
[2022-09-03] MEDS ORDERED: MoRPHine SULFATE 4 MG/ML 1 ML CARP\\VIAL IV PRN (17:49)
[2022-09-03] MEDS ORDERED: SODIUM CHLORIDE 0.9% 1000ML 1,000 ML IV STA (17:49)
[2022-09-03] MEDS ORDERED: cefTRIAXone SODIUM 2,000 MG/70 ML BAG IV STA (17:51)
--- NOTE | 2022-09-03 18:01 | Emergency Department Note ---
Impression & Plan Pyelonephritis, Hydronephrosis with renal and ureteral calculous obstruction, Fever ED Provider Note NAME: DEANDRE CARRIZALES AGE: 47 SEX: F : 1975 ARRIVES VIA: Walk-In INFORMANT: Patient, ED PROVIDER(S): Jeremy Mackey DO CHIEF COMPLAINT: Flank pain HPI: The patient is a 47-year-old female who presented to the emergency department for an evaluation of flank pain. The patient has a history of kidney stones. She was noted to have a fever in triage. [place] She has been noticing worsening flank pain as well as nausea and vomiting. She is noted some cloudy urine. The patient denies having any recent trauma. She denies having any chest pain but does complain of some difficulty breathing with a cough. The patient denies having any leg swelling or leg pain. ROS: See above HPI for pertinent positives & negatives. A total of 10 systems reviewed and were otherwise negative. PAST MEDICAL HISTORY: See Below PAST SURGICAL HISTORY: See Below FAMILY HISTORY: See Below SOCIAL HISTORY: See Below HOME MEDICATIONS: See Below ALLERGIES: See Below VITALS: See Below PHYSICAL EXAMINATION: GENERAL: The patient is awake and alert. She is somewhat anxious appearing. EYES: The conjunctivae are clear. The pupils are round and reactive. EARS, NOSE, MOUTH AND THROAT: The nose is without any evidence of any deformity. NECK: The neck is nontender and supple. RESPIRATORY: Normal respiratory effort is noted there is no evidence of wheezing rhonchi or rales CARDIOVASCULAR: Tachycardic rate with regular rhythm was noted. There is no definite murmur. GASTROINTESTINAL: The abdomen is soft and mildly distended. There is right- sided tenderness to palpation but no guarding rigidity. BACK: Right CVA tenderness was noted to percussion. MUSCULOSKELETAL/EXTREMITIES: There is no evidence of gross deformity full range of motion is noted in the hips and shoulders. SKIN: There is no obvious evidence of any rash. There are no petechiae, pallor or cyanosis noted. NEUROLOGIC: Patient is awake alert and oriented x3. Gait was steady. MEDICAL DECISION MAKING: The patient is a 47-year-old female who presented to the emergency department for an evaluation of flank pain. The patient had a fever as well as tachycardia. She was treated with IV fluids as well as IV antibiotics in the emergency department. I did discuss the patient's laboratory and radiographic studies with her. She was treated with pain medication. The patient was found to have signs of urinary tract fraction on urinalysis. She also appears to have an obstructing kidney stone on CAT scan. For this reason I discussed her condition with the on-call urology group. They have agreed to evaluate the patient in the emergency department for further management and disposition. I also discussed this case with the hospitalist group. The patient will require medical management. Triage Nursing notes reviewed. Prior medical records reviewed Vital Signs: reviewed and remarkable for tachycardia. Differential diagnosis: Renal colic, UTI, appendicitis, diverticulitis, mesenteric ischemia, aortic pathology, infections, inflammatory bowel disease, PUD, biliary pathology, as well as other pathologies. ER treatment provided: See below Diagnostics interpreted by me: ECG: EKG was obtained in the emergency department. My interpretation is sinus tachycardia at 121 bpm. There is no ectopy. Nonspecific ST segment abnormalities were noted. This was compared to a tracing from December 19, 2021. There was an increase in the rate otherwise no specific changes were noted. Cardiac Monitoring: An order was placed for continuous cardiac monitoring. The monitor shows a rate of 120 bpm with sinus tachycardia. Laboratory studies: As stated above and show below. Imaging studies: See below. Radiographic imaging was reviewed by myself Consultation(s): I discussed this case with Silvestre who was covering for urology this evening. He will evaluate the patient in the emergency department. I discussed this case with Dr. Estrada who is on-call for the [facility] hospitalist group. ED COURSE: Procedures: none Critical Care: I have personally spent greater than 45 minutes of critical care time in the direct management of this patient. This includes bedside care, interpretation of diagnostic studies, and testing, discussion with consultants, patient, and family members, and other required patient management activities. This 45 minutes is in excess of all separately billable procedures. Past Med/Surg History Medical History Crohns disease NO MEDICATIONS. WELL CONTROLLED WITH DIET. GERD (gastroesophageal reflux disease) CURRENT, NO MEDS Kidney stones Migraine CONTROLLED LATELY Sinus tachycardia OCCASIONAL. USED TO SEE DR DANG. NO PROBLEMS CURRENTLY. Surgical History H/O bilateral breast reduction surgery H/O wrist surgery LEFT History of colonoscopy History of esophagogastroduodenoscopy (EGD) History of hysterectomy MIREYA BSO History of laparoscopy History of lithotripsy Hx of cholecystectomy LAP Family History Uncle Family history of diabetes mellitus Father FHx: prostate cancer Social History Smoking Status: Former smoker Tobacco Type: Cigarettes Second Hand Exposure: No; Do You Dip or Chew Tobacco: No; Hx Alcohol Use: No Hx Substance Use: No Preferred Language: [place] Communication Ability: Effective Visual Impairment: No Limitations Instrumentation And Controls Designer Required: No Beliefs That Will Affect Care: None Current Living Situation: Significant Other Current Living Situation Comment: BOYFRIEND, AUNT , DAUGHTER AND SON IN LAW Feels Safe at Home: Yes Assistive Devices: None Allergies Allergies Allergy/AdvReac Type Severity Reaction Status Date / Time No Known Allergies Allergy Mild Verified 03/14/20 19:05 Home Meds Home Medications Medication Instructions Recorded Confirmed ketorolac 60 mg/2 mL intramuscular 60 mg IM DIRECTED PRN MIGRAINES 03/05/18 03/14/20 solution acetaminophen 500 mg tablet 1,000 mg PO DIRECTED PRN 03/14/20 03/14/20 (Tylenol Extra Strength) FEVER/PAIN ondansetron HCl 4 mg tablet 4 - 8 mg PO Q6H PRN NAUSEA/VOMITING 03/14/20 03/14/20 (Zofran) Previous Rx's Medication Instructions Recorded docusate sodium 100 mg capsule 100 mg PO BID #60 caps 03/14/20 (Colace) ondansetron HCl 4 mg tablet 4 mg PO Q6H PRN nausea and 03/14/20 (Zofran) vomiting #6 tabs oxycodone 5 mg tablet 5 mg PO Q6H PRN pain #14 tabs 03/14/20 oxycodone-acetaminophen 5 mg-325 2 tab PO Q6H PRN pain #20 tabs 03/14/20 mg tablet (Percocet) sennosides 8.6 mg tablet (Senokot) 8.6 mg PO HS #30 tabs 03/14/20 tamsulosin 0.4 mg capsule (Flomax) 0.4 mg PO HS #30 caps 03/14/20 Results & Data (ED) Vital Signs Vital Signs - 24 hr 09/03/22 17:39 09/03/22 20:44 Temperature 38.0 C H Temperature Source Temporal Artery Scan Pulse Rate 138 H Pulse Rate [Right] 110 H Respiratory Rate 20 17 Respiratory Effort / Characteristics Non-Labored Non-Labored Spontaneous Respiratory Depth Normal Normal Blood Pressure 121/90 Blood Pressure [Right Arm] 117/83 Blood Pressure Mean 100 Blood Pressure Mean [Right Arm] 94 Blood Pressure Position [Right Arm] Lying Pulse Oximetry 96 91 Oxygen Delivery Method Room Air Room Air Sepsis Recent Fever Within 48 Hours No Sepsis New/Unexplained Change in Mental Status N/A Sepsis Action Taken by Nursing No Action Required Home Medications Current Medication List: was personally reviewed by me Laboratory Data Attestation: I reviewed the patient's lab results. 09/03/22 19:08 09/03/22 19:08 Lab Results 09/03/22 09/03/22 09/03/22 Range/Units 18:46 19:08 19:08 WBC 12.81 H (4.8-10.8) K/ul RBC 4.69 (4.20-5.40) M/uL Hgb 13.3 (12.0-16.0) g/dl Hct 40.3 (37.0-47.0) % MCV 85.9 (80.0-100.0) fL MCH 28.4 (25.0-34.0) pg MCHC 33.0 (32.0-36.0) g/dL RDW Std Deviation 44.9 (36.4-46.3) fL RDW Coeff of Tisha 14.4 (11.5-14.5) % Plt Count 272 (130-400) K/uL MPV 10.0 (9.4-12.4) fL Immature Gran % (Auto) 0.5 % Neut % (Auto) 77.9 % Lymph % (Auto) 9.5 % Power % (Auto) 11.9 % Eos % (Auto) 0.0 % Baso % (Auto) 0.2 % Neut # (Auto) 9.96 H (1.40-6.50) K/uL Lymph # (Auto) 1.22 (1.2-3.4) K/uL Power # (Auto) 1.53 H (0.11-0.59) K/uL Eos # (Auto) 0.00 (0-0.50) K/uL Baso # (Auto) 0.03 (0-0.2) K/uL Immature Gran # (Auto) 0.07 (0.01-0.20) K/uL ESR 40 H (0-20) mm/hr PT (9.0-12.0) Seconds INR (0.9-1.1) APTT (21.0-31.0) Seconds PTT Ratio Sodium (136-145) mmol/L Potassium (3.5-5.1) mmol/L Chloride (98-107) mmol/L Carbon Dioxide (21-32) mmol/L Anion Gap (3-11) BUN (6-23) mg/dl Creatinine (0.6-1.2) mg/dl Est Cr Clr Drug Dosing ml/min Est GFR ( Amer) ml/min Est GFR (Non-Af Amer) ml/min BUN/Creatinine Ratio (10-20) Glucose (70-99(Fasting)) mg/dl Lactate (0.4-2.0) mmol/L Calcium (8.6-10.3) mg/dl Total Bilirubin (0.2-1.0) mg/dl AST (13-39) U/L ALT (7-52) U/L Alkaline Phosphatase (34-104) U/L Troponin I High Sens (0-14) pg/ml C-Reactive Protein (0-0.5) mg/dl Total Protein (6.0-8.3) gm/dl Albumin (3.4-5.0) gm/dl Globulin (2.5-4.0) gm/dl Albumin/Globulin Ratio (0.9-2) Lipase (11-82) U/L Procalcitonin (0-0.5) ng/ml Urine Color Dark Yellow Urine Appearance Cloudy A (Clear) Urine pH 5.5 (4.5-7.5) Ur Specific [place] 1.020 (1.000-1.030) Urine Protein 1+ H (Negative) Urine Glucose (UA) Negative (Negative) Urine Ketones Trace H (Negative) Urine Blood 1+ H (Negative) Urine Nitrite Negative (Negative) Urine Bilirubin Negative (Negative) Urine Urobilinogen Negative (Negative) Ur Leukocyte Esterase 2+ H (Negative) Urine WBC (Auto) >30 H (0-5) /hpf Urine RBC (Auto) 0-4 (0-4) /hpf U Hyaline Cast (Auto) 0 (0-5) /lpf U Epithel Cells (Auto) >30 H (0-5) /lpf Urine Bacteria (Auto) 4+ H (Negative) Urine Mucus Present A (None Prsent) SARS-CoV-2, RNA, NAAT (NEGATIVE) 09/03/22 09/03/22 09/03/22 Range/Units 19:08 19:08 19:08 WBC (4.8-10.8) K/ul RBC (4.20-5.40) M/uL Hgb (12.0-16.0) g/dl Hct (37.0-47.0) % MCV (80.0-100.0) fL MCH (25.0-34.0) pg MCHC (32.0-36.0) g/dL RDW Std Deviation (36.4-46.3) fL RDW Coeff of Tisha (11.5-14.5) % Plt Count (130-400) K/uL MPV (9.4-12.4) fL Immature Gran % (Auto) % Neut % (Auto) % Lymph % (Auto) % Power % (Auto) % Eos % (Auto) % Baso % (Auto) % Neut # (Auto) (1.40-6.50) K/uL Lymph # (Auto) (1.2-3.4) K/uL Power # (Auto) (0.11-0.59) K/uL Eos # (Auto) (0-0.50) K/uL Baso # (Auto) (0-0.2) K/uL Immature Gran # (Auto) (0.01-0.20) K/uL ESR (0-20) mm/hr PT 11.2 (9.0-12.0) Seconds INR 1.0 (0.9-1.1) APTT 28.6 (21.0-31.0) Seconds PTT Ratio 1.0 Sodium 137 (136-145) mmol/L Potassium 3.7 (3.5-5.1) mmol/L Chloride 103 (98-107) mmol/L Carbon Dioxide 26 (21-32) mmol/L Anion Gap 8 (3-11) BUN 12 (6-23) mg/dl Creatinine 0.79 (0.6-1.2) mg/dl Est Cr Clr Drug Dosing 104.3 ml/min Est GFR ( Amer) 102.6 ml/min Est GFR (Non-Af Amer) 88.5 ml/min BUN/Creatinine Ratio 15.2 (10-20) Glucose 138 H (70-99(Fasting)) mg/dl Lactate 1.0 (0.4-2.0) mmol/L Calcium 9.7 (8.6-10.3) mg/dl Total Bilirubin 0.5 (0.2-1.0) mg/dl AST 15 (13-39) U/L ALT 25 (7-52) U/L Alkaline Phosphatase 79 (34-104) U/L Troponin I High Sens 3.1 (0-14) pg/ml C-Reactive Protein 21.49 H (0-0.5) mg/dl Total Protein 7.7 (6.0-8.3) gm/dl Albumin 4.2 (3.4-5.0) gm/dl Globulin 3.5 (2.5-4.0) gm/dl Albumin/Globulin Ratio 1.2 (0.9-2) Lipase 15 (11-82) U/L Procalcitonin (0-0.5) ng/ml Urine Color Urine Appearance (Clear) Urine pH (4.5-7.5) Ur Specific [place] (1.000-1.030) Urine Protein (Negative) Urine Glucose (UA) (Negative) Urine Ketones (Negative) Urine Blood (Negative) Urine Nitrite (Negative) Urine Bilirubin (Negative) Urine Urobilinogen (Negative) Ur Leukocyte Esterase (Negative) Urine WBC (Auto) (0-5) /hpf Urine RBC (Auto) (0-4) /hpf U Hyaline Cast (Auto) (0-5) /lpf U Epithel Cells (Auto) (0-5) /lpf Urine Bacteria (Auto) (Negative) Urine Mucus (None Prsent) SARS-CoV-2, RNA, NAAT (NEGATIVE) 09/03/22 09/03/22 Range/Units 19:08 20:23 WBC (4.8-10.8) K/ul RBC (4.20-5.40) M/uL Hgb (12.0-16.0) g/dl Hct (37.0-47.0) % MCV (80.0-100.0) fL MCH (25.0-34.0) pg MCHC (32.0-36.0) g/dL RDW Std Deviation (36.4-46.3) fL RDW Coeff of Tisha (11.5-14.5) % Plt Count (130-400) K/uL MPV (9.4-12.4) fL Immature Gran % (Auto) % Neut % (Auto) % Lymph % (Auto) % Power % (Auto) % Eos % (Auto) % Baso % (Auto) % Neut # (Auto) (1.40-6.50) K/uL Lymph # (Auto) (1.2-3.4) K/uL Power # (Auto) (0.11-0.59) K/uL Eos # (Auto) (0-0.50) K/uL Baso # (Auto) (0-0.2) K/uL Immature Gran # (Auto) (0.01-0.20) K/uL ESR (0-20) mm/hr PT (9.0-12.0) Seconds INR (0.9-1.1) APTT (21.0-31.0) Seconds PTT Ratio Sodium (136-145) mmol/L Potassium (3.5-5.1) mmol/L Chloride (98-107) mmol/L Carbon Dioxide (21-32) mmol/L Anion Gap (3-11) BUN (6-23) mg/dl Creatinine (0.6-1.2) mg/dl Est Cr Clr Drug Dosing ml/min Est GFR ( Amer) ml/min Est GFR (Non-Af Amer) ml/min BUN/Creatinine Ratio (10-20) Glucose (70-99(Fasting)) mg/dl Lactate (0.4-2.0) mmol/L Calcium (8.6-10.3) mg/dl Total Bilirubin (0.2-1.0) mg/dl AST (13-39) U/L ALT (7-52) U/L Alkaline Phosphatase (34-104) U/L Troponin I High Sens (0-14) pg/ml C-Reactive Protein (0-0.5) mg/dl Total Protein (6.0-8.3) gm/dl Albumin (3.4-5.0) gm/dl Globulin (2.5-4.0) gm/dl Albumin/Globulin Ratio (0.9-2) Lipase (11-82) U/L Procalcitonin 0.17 (0-0.5) ng/ml Urine Color Urine Appearance (Clear) Urine pH (4.5-7.5) Ur Specific [place] (1.000-1.030) Urine Protein (Negative) Urine Glucose (UA) (Negative) Urine Ketones (Negative) Urine Blood (Negative) Urine Nitrite (Negative) Urine Bilirubin (Negative) Urine Urobilinogen (Negative) Ur Leukocyte Esterase (Negative) Urine WBC (Auto) (0-5) /hpf Urine RBC (Auto) (0-4) /hpf U Hyaline Cast (Auto) (0-5) /lpf U Epithel Cells (Auto) (0-5) /lpf Urine Bacteria (Auto) (Negative) Urine Mucus (None Prsent) SARS-CoV-2, RNA, NAAT NEGATIVE (NEGATIVE) Administered Medications Lactated Ringer's (Lr) 1,000 mls @ 125 mls/hr IV .Q8H CELINA Stop: 10/03/22 20:29 Last Admin: 09/03/22 20:36 Dose: 125 mls/hr Documented By: BRENDA Discontinued Medications Sodium Chloride (Nss 1000ml) 1,000 mls @ 999 mls/hr IV .Q1H1M STA Stop: 09/03/22 18:49 Last Infusion: 09/03/22 20:29 Dose: 0 mls/hr Documented By: Admin: 09/03/22 18:39 Dose: 999 mls/hr Documented By: BRENDA Ceftriaxone Sodium (Rocephin) 2,000 mg in 70 mls @ 140 mls/hr IV NOW STA Stop: 09/03/22 18:20 Last Infusion: 09/03/22 20:29 Dose: 0 mls/hr Documented By: Admin: 09/03/22 18:39 Dose: 140 mls/hr Documented By: BRENDA Ioversol (Optiray 320 100ml) 95 ml IV ONCE ONE Stop: 09/03/22 20:02 Last Admin: 09/03/22 20:01 Dose: 95 ml Documented By: PAYAL Ketorolac Tromethamine (Ketorolac Tromethamine 15 Mg/Ml Vial) 10 mg IV NOW ONE Stop: 09/03/22 18:09 Last Admin: 09/03/22 18:38 Dose: 10 mg Documented By: BRENDA Ondansetron HCl (Ondansetron Inj 2 Mg/Ml 2 Ml Vial) 4 mg IV NOW STA Stop: 09/03/22 17:50 Last Admin: 09/03/22 18:38 Dose: 4 mg Documented By: BRENDA Imaging Data Attestation: I personally reviewed and interpreted this imaging study as follows : My Impression: CT of the abdomen and pelvis was obtained in the emergency department. My interpretation is stranding around the right kidney with an obstructing right proximal ureteral calculus. Final report pending. 1 view chest x-ray was obtained in the emergency department. My interpretation is no free air or definite infiltrate, final report below. Radiologist's Impression: Abdomen/Pelvis CT 09/03/22 17:49 Exam(s): CT ABDOMEN + PELVIS With Contrast IV Amt: 95ML OPTIRAY 320 EXAM: CT Abdomen and Pelvis With Intravenous Contrast CLINICAL HISTORY: Reason for exam: right flank pain, fever. TECHNIQUE: Axial computed tomography images of the abdomen and pelvis with intravenous contrast. CTDI is 27.87 mGy and DLP is 1499.19 mGy-cm. Automated exposure control was utilized for the study. A dose lowering technique was utilized adhering to the principles of ALARA. CONTRAST: Patient received 95ML OPTIRAY 320 of IV contrast COMPARISON: No relevant prior studies available. FINDINGS: Lung bases: Unremarkable. No mass. No consolidation. ABDOMEN: Liver: Fatty infiltration of liver. Gallbladder and bile ducts: See below. Pancreas: Unremarkable. No mass. No ductal dilation. Spleen: Unremarkable. No splenomegaly. Adrenals: Unremarkable. No mass. Kidneys and ureters: Subtle area of heterogeneous enhancement involving the inferior pole right kidney with what slight perinephric stranding. Mild right hydroureteronephrosis secondary to a 0.6 cm proximal right ureteral calculus. Postoperative changes prior cholecystectomy. . Nonobstructing left intrarenal calculi. Stomach and bowel: Unremarkable. No obstruction. No mucosal thickening. PELVIS: Appendix: No findings to suggest acute appendicitis. Bladder: Unremarkable. No mass. Reproductive: Uterus is surgically absent. ABDOMEN and PELVIS: Intraperitoneal space: Unremarkable. No free air. No significant fluid collection. Bones/joints: No acute fracture. No dislocation. Soft tissues: Unremarkable. Vasculature: Unremarkable. No abdominal aortic aneurysm. Lymph nodes: Unremarkable. No enlarged lymph nodes. IMPRESSION: Findings consistent with pyelonephritis secondary to obstructing right ureteral calculus as described above Electronically signed by: Steve Domínguez MD 09/03/22 20:44 PM Chest X-Ray 09/03/22 17:49 XR chest 1V portable CLINICAL HISTORY: Fever. COMPARISON STUDY: Chest radiograph July 18, 2018. FINDINGS: Lung volumes are mildly diminished. Lungs are clear. There is no pneumothorax or pleural effusion. Cardiac size is normal. Mediastinal contours are normal. There is no evidence for pulmonary edema. IMPRESSION: No acute cardiopulmonary findings. ACT 112: Negative or not required by law. Electronically signed by: Don Campos M.D. 09/03/2022 6:39 PM Discharge Plan Visit Data Chief Complaint: Flank Pain Stated Complaint: WEAK,DIZZY, FLANK PAIN ED Provider: Jeremy Mackey Discharge Problem: Pyelonephritis, Hydronephrosis with renal and ureteral calculous obstruction, Fever Patient Disposition: Being Evaluated by Hospitalist Forms Stand Alone Forms: [facility] Prescriptions Prescriptions: No Action oxycodone 5 mg tablet 5 mg PO Q6H PRN (Reason: pain) Qty: 14 0RF sennosides [Senokot] 8.6 mg tablet 8.6 mg PO HS Qty: 30 0RF docusate sodium [Colace] 100 mg capsule 100 mg PO BID Qty: 60 0RF ondansetron HCl [Zofran] 4 mg tablet 4 mg PO Q6H PRN (Reason: nausea and vomiting) Qty: 6 0RF tamsulosin [Flomax] 0.4 mg capsule 0.4 mg PO HS Qty: 30 0RF ketorolac 60 mg/2 mL solution 60 mg IM DIRECTED PRN (Reason: MIGRAINES) ondansetron HCl [Zofran] 4 mg Tablet 4 - 8 mg PO Q6H PRN (Reason: NAUSEA/VOMITING) acetaminophen [Tylenol Extra Strength] 500 mg Tablet 1,000 mg PO DIRECTED PRN (Reason: FEVER/PAIN) oxycodone-acetaminophen [Percocet] 5-325 mg tablet 2 tab PO Q6H PRN (Reason: pain) Qty: 20 0RF Referrals Referrals: Mac Allan [Primary Care Provider] - Fever Qualifiers: Fever type: unspecified Qualified Code(s): R50.9 - Fever, unspecified
[2022-09-03] MEDS ORDERED: KETOROLAC TROMETHAMINE 15 MG/ML VIAL IV ONE (18:08)
--- NOTE | 2022-09-03 18:41 | XRay Report ---
XR chest 1V portable CLINICAL HISTORY: Fever. COMPARISON STUDY: Chest radiograph July 18, 2018. FINDINGS: Lung volumes are mildly diminished. Lungs are clear. There is no pneumothorax or pleural ef fusion. Cardiac size is normal. Mediastinal contours are normal. There is no evidence for pulmonary e kaylan. IMPRESSION: No acute cardiopulmonary findings. ACT 112: Negative or not required by law. Electronically signed by: Don Campos M.D. 09/03/2022 6:39 PM
[2022-09-03 19:08] LABS: Appearance Urine Cloudy (Clear); Bacteria Urine Automated 4+ (Negative); Bilirubin Urine Negative (Negative); Blood Urine 1+ (Negative); Color Urine Dark Yellow; Epithelial Cell Urine Auto >30 /lpf (0-5); Glucose Urine UA Negative (Negative); Ketones Urine Trace (Negative); Leukocyte Esterase Urine 2+ (Negative); Nitrite Urine Negative (Negative); Protein Urine 1+ (Negative); RBC Urine Automated 0-4 /hpf (0-4); Urobilinogen Urine Negative (Negative); WBC Urine Automated >30 /hpf (0-5); pH Urine 5.5 (4.5-7.5)
[2022-09-03 19:24] LABS: Basophils # (auto) 0.03 K/uL (0-0.2); Basophils % (auto) 0.2 %; Hematocrit (blood only) 40.3 % (37.0-47.0); Hemoglobin 13.3 g/dl (12.0-16.0); Immature Granulocytes # (auto) 0.07 K/uL (0.01-0.20); Immature Granulocytes % (auto) 0.5 %; Lymphocytes # (auto) 1.22 K/uL (1.2-3.4); Lymphocytes % (auto) 9.5 %; Mean Corpuscular Hemoglobin 28.4 pg (25.0-34.0); Mean Corpuscular Volume 85.9 fL (80.0-100.0); Monocytes # (auto) 1.53 K/uL (0.11-0.59); Monocytes % (auto) 11.9 %; Neutrophils # (auto) 9.96 K/uL (1.40-6.50); Neutrophils % (auto) 77.9 %; Platelet Count 272 K/uL (130-400); RDW Coefficient of Variation 14.4 % (11.5-14.5); RDW Standard Deviation 44.9 fL (36.4-46.3); Red Blood Count 4.69 M/uL (4.20-5.40); White Blood Count 12.81 K/ul (4.8-10.8)
[2022-09-03 19:27] LABS: Cast Urine Automated 0 /lpf (0-5); Mucus Urine Present (None Prsent)
[2022-09-03 19:38] LABS: Albumin Globulin Ratio 1.2 (0.9-2); Albumin Level 4.2 gm/dl (3.4-5.0); BUN Creatinine Ratio 15.2 (10-20); Bilirubin,Total 0.5 mg/dl (0.2-1.0); C Reactive Protein 21.49 mg/dl (0-0.5); Calcium 9.7 mg/dl (8.6-10.3); Creatinine Clr Calc Pharmacy 104.3 ml/min; Est GFR (African American) 102.6 ml/min; Est GFR (Non-African American) 88.5 ml/min; Globulin 3.5 gm/dl (2.5-4.0); Potassium 3.7 mmol/L (3.5-5.1); Total Protein 7.7 gm/dl (6.0-8.3)
[2022-09-03 19:44] LABS: Troponin I High Sensitivity 3.1 pg/ml (0-14)
[2022-09-03 19:58] LABS: Partial Thromboplastin Time 28.6 Seconds (21.0-31.0); Prothrombin Time 11.2 Seconds (9.0-12.0)
[2022-09-03] MEDS ORDERED: OPTIRAY 320 100ml IV ONE (20:01)
[2022-09-03] MEDS: LACTATED RINGER'S 1,000 ML IV SCH (20:36)
--- NOTE | 2022-09-03 20:40 | Urology Consultation ---
Date of Consultation September 03, 2022 Assessment & Plan (1) Hydronephrosis with renal and ureteral calculous obstruction: I discussed with the treating emergency room physician. Due to the patient's findings on imaging, labs, and clinical presentation she is being admitted on the hospitalist service. We recommend proceeding as follows: I am concerned that the patient may have early sepsis as she is febrile with leukocytosis and tachycardia We will maintain n.p.o. status We will hydrate her aggressively with IV fluids. I have ordered lactated Ringer's at 1 or 25 cc/h She has received antibiotics in the form of Rocephin which should continue. Blood and urine cultures have been sent and are antibiotics to be tailored based on these results Due to the above noted fever, leukocytosis, and tachycardia she will be taken to the operating room this evening emergently with Dr. Ricketts for cystoscopy and stent placement Additional recommendations to be forthcoming based on operative findings and her clinical course as it unfolds Supervising Physician Co-Signing Physician Notes Discussed patient with VON. Agree with plan. Right obstructing ureteral stone and sepsis. We will proceed to OR emergently for cystoscopy, right retrograde pyelogram and right ureteral stent placement History of Present Illness Reason for Consultation: Nephrolithiasis History of Present Illness This is a 47-year-old female who presented the emergency department secondary to 3 days of right flank pain. She says that the pain radiates to her right groin. Patient has had nausea without vomiting and subjective fevers at home. She has had kidney stones in the past most recently 2 years ago where she required stent placement (this was performed and do boys). With her current presentation she denies any dysuria or hematuria. Because of her history of kidney stones and symptomatology she presented to the emergency Since arrival to the hospital this patient has had labs and imaging which I independent reviewed. Chest x-ray did not show any evidence of pneumonia. The patient did have a CT scan of the abdomen where the patient was noted to have a right-sided kidney stone measuring approximately 3 to 4 mm resulting in hydronephrosis. CBC revealed white blood cell count 12.8. Hemoglobin and cherie tocrit were within the normal range as was the platelet count. Coagulation studies were noted to be normal. Chemistry profile showed sodium, potassium, BUN, and creatinine were all normal. Urinalysis showed urine was cloudy with was negative for nitrites but she did have 2+ leukocyte Estrace and greater than 30 white blood cells per high-power field along with 4+ bacteria. A COVID test is pending. At the time of my interview the patient was resting comfortably in bed and she was no distress. Allergies Allergy/AdvReac Type Severity Reaction Status Date / Time No Known Allergies Allergy Mild Verified 03/14/20 19:05 Home Medications Medication Instructions Recorded Confirmed Type ketorolac 60 mg/2 mL intramuscular 60 mg IM DIRECTED PRN MIGRAINES 03/05/18 03/14/20 History solution acetaminophen 500 mg tablet 1,000 mg PO DIRECTED PRN 03/14/20 03/14/20 History (Tylenol Extra Strength) FEVER/PAIN docusate sodium 100 mg capsule 100 mg PO BID #60 caps 03/14/20 Rx (Colace) ondansetron HCl 4 mg tablet 4 - 8 mg PO Q6H PRN NAUSEA/VOMITING 03/14/20 03/14/20 History (Zofran) ondansetron HCl 4 mg tablet 4 mg PO Q6H PRN nausea and 03/14/20 Rx (Zofran) vomiting #6 tabs oxycodone 5 mg tablet 5 mg PO Q6H PRN pain #14 tabs 03/14/20 Rx oxycodone-acetaminophen 5 mg-325 2 tab PO Q6H PRN pain #20 tabs 03/14/20 03/14/20 Rx mg tablet (Percocet) sennosides 8.6 mg tablet (Senokot) 8.6 mg PO HS #30 tabs 03/14/20 Rx tamsulosin 0.4 mg capsule (Flomax) 0.4 mg PO HS #30 caps 03/14/20 Rx Patient History Medical History Crohns disease NO MEDICATIONS. WELL CONTROLLED WITH DIET. GERD (gastroesophageal reflux disease) CURRENT, NO MEDS Kidney stones Migraine CONTROLLED LATELY Sinus tachycardia OCCASIONAL. USED TO SEE DR DANG. NO PROBLEMS CURRENTLY. Surgical History H/O bilateral breast reduction surgery H/O wrist surgery LEFT History of colonoscopy History of esophagogastroduodenoscopy (EGD) History of hysterectomy MIREYA BSO History of laparoscopy History of lithotripsy Hx of cholecystectomy LAP Family History Uncle Family history of diabetes mellitus Father FHx: prostate cancer Social History Smoking Status: Former smoker Tobacco Type: Cigarettes Second Hand Exposure: No; Do You Dip or Chew Tobacco: No; Hx Alcohol Use: No Hx Substance Use: No Preferred Language: Ivorian Communication Ability: Effective Visual Impairment: No Limitations Felt Hat Mellowing Machine Operator Required: No Beliefs That Will Affect Care: None Current Living Situation: Significant Other Current Living Situation Comment: BOYFRIEND, AUNT , DAUGHTER AND SON IN LAW Feels Safe at Home: Yes Assistive Devices: None Review of Systems Constitutional: + fever and + chills Ear, Nose, Mouth, Throat: no ear pain Respiratory: + cough; no dyspnea Cardiovascular: no chest pain Gastrointestinal: + abdominal pain (Radiating from right flank) and + nausea; no vomiting Genitourinary: as per Subjective / HPI Musculoskeletal: + back pain (Right flank) Integumentary: no rash Neurologic: no localized weakness Physical Exam Constitutional: WD/WN, vitals as above Eyes: no conjunctival abnormality ENMT: Ears: no hearing impairment Mouth: no oropharynx abnormality Neck: trachea midline Respiratory: normal respiratory effort; no respiratory distress and no labored breathing Cardiovascular: Rate/Rhythm: regular rate, regular rhythm and + tachycardic Vessels: dorsalis pedis pulses present and radial pulses present Gastrointestinal (Abdomen): Abdomen is soft, nondistended, nonrigid. There is no pain with palpation Musculoskeletal: No calf tenderness, feet are warm and well-perfused Skin: no rashes Neurologic: moves all extremities Psychiatric: A+Ox3, euthymic affect Genitourinary: CVA tenderness noted on the right with percussion Results & Data Vital Signs (Past 12 Hours) Vital Signs Temp Pulse Resp BP Pulse Ox O2 Del Method 09/03/22 17:39 38.0 C H 138 H 20 121/90 96 Room Air PG Care Time/CCT Total # of Minutes Spent Total Time Spent with Patient: Total time spent is greater than 50% in coordination of care (as documented) at patient's floor/unit and/or counseling patient: Coding Level of Care Code 84257 IN/OBS CONSULT LVL 5,80M Diagnoses Hydronephrosis with renal and ureteral calculous obstruction N13.2
--- NOTE | 2022-09-03 20:45 | CT Scan Report ---
Exam(s): CT ABDOMEN + PELVIS With Contrast IV Amt: 95ML OPTIRAY 320 EXAM: CT Abdomen and Pelvis With Intravenous Contrast CLINICAL HISTORY: Reason for exam: right flank pain, fever. TECHNIQUE: Axial computed tomography images of the abdomen and pelvis with intravenous contrast. CTDI is 27.87 mGy and DLP is 1499.19 mGy-cm. Automated exposure control was utilized for the study. A dose lowering technique was utilized adhering to the principles of ALARA. CONTRAST: Patient received 95ML OPTIRAY 320 of IV contrast COMPARISON: No relevant prior studies available. FINDINGS: Lung bases: Unremarkable. No mass. No consolidation. ABDOMEN: Liver: Fatty infiltration of liver. Gallbladder and bile ducts: See below. Pancreas: Unremarkable. No mass. No ductal dilation. Spleen: Unremarkable. No splenomegaly. Adrenals: Unremarkable. No mass. Kidneys and ureters: Subtle area of heterogeneous enhancement involving the inferior pole right kidney with what slight perinephric stranding. Mild right hydroureteronephrosis secondary to a 0.6 cm proximal right ureteral calculus. Postoperative changes prior cholecystectomy. . Nonobstructing left intrarenal calculi. Stomach and bowel: Unremarkable. No obstruction. No mucosal thickening. PELVIS: Appendix: No findings to suggest acute appendicitis. Bladder: Unremarkable. No mass. Reproductive: Uterus is surgically absent. ABDOMEN and PELVIS: Intraperitoneal space: Unremarkable. No free air. No significant fluid collection. Bones/joints: No acute fracture. No dislocation. Soft tissues: Unremarkable. Vasculature: Unremarkable. No abdominal aortic aneurysm. Lymph nodes: Unremarkable. No enlarged lymph nodes. IMPRESSION: Findings consistent with pyelonephritis secondary to obstructing right ureteral calculus as described above Electronically signed by: Steve Domínguez MD 09/03/22 20:44 PM
[2022-09-03] MEDS ORDERED: ePHEDrine sulfate 50 MG/ML AMP IV PRN (21:40)
[2022-09-03] MEDS ORDERED: HYDROmorphone INJ 1 MG/ML SYRINGE IV PRN (21:40)
[2022-09-03] MEDS ORDERED: ONDANSETRON INJ 2 MG/ML 2 ML VIAL IV PRN (21:40)
[2022-09-03] MEDS ORDERED: fentaNYL citrate PF 100 MCG/2 ML VIAL IV PRN (21:40)
[2022-09-03] MEDS ORDERED: ATROPINE SULFATE 0.1 MG/ML 10ML SYR IV PRN (21:40)
--- NOTE | 2022-09-03 21:40 | Anesthesiology Consultation ---
Date of Service September 03, 2022 Assessment & Plan ASA ASA2E Proposed Anesthesia Anesthesia Type: General Risk / Benefits Reviewed With: PT / POA / Parent / Guardian, Accepts Plan and Informed Consent Obtained History Surgery Operation Date: 09/03/22 22:00 Proposed Procedures p Cystoscopy - [place] Ricketts MD Height/Weight Height: 5 ft 7 in Weight: 97.3 kg Allergies Allergy/AdvReac Type Severity Reaction Status Date / Time No Known Allergies Allergy Mild Verified 03/14/20 19:05 Medications Home Medications Medication Instructions Recorded Confirmed Last Taken ketorolac 60 mg/2 mL intramuscular 60 mg IM DIRECTED PRN MIGRAINES 03/05/18 03/14/20 Unknown solution acetaminophen 500 mg tablet 1,000 mg PO DIRECTED PRN 03/14/20 03/14/20 Unknown (Tylenol Extra Strength) FEVER/PAIN docusate sodium 100 mg capsule 100 mg PO BID #60 caps 03/14/20 Unknown (Colace) ondansetron HCl 4 mg tablet 4 - 8 mg PO Q6H PRN NAUSEA/VOMITING 03/14/20 03/14/20 Unknown (Zofran) ondansetron HCl 4 mg tablet 4 mg PO Q6H PRN nausea and 03/14/20 Unknown (Zofran) vomiting #6 tabs oxycodone 5 mg tablet 5 mg PO Q6H PRN pain #14 tabs 03/14/20 Unknown oxycodone-acetaminophen 5 mg-325 2 tab PO Q6H PRN pain #20 tabs 03/14/20 03/14/20 03/14/20 mg tablet (Percocet) sennosides 8.6 mg tablet (Senokot) 8.6 mg PO HS #30 tabs 03/14/20 Unknown tamsulosin 0.4 mg capsule (Flomax) 0.4 mg PO HS #30 caps 03/14/20 Unknown Active Medications Generic Name Dose Route Start Last Admin Trade Name Freq PRN Reason Stop Dose Admin Lactated Ringer's 1,000 mls @ 125 mls/hr 09/03/22 20:30 09/03/22 20:36 Lr IV 10/03/22 20:29 125 mls/hr .Q8H CELINA Administration Past Medical History Medical History Crohns disease NO MEDICATIONS. WELL CONTROLLED WITH DIET. GERD (gastroesophageal reflux disease) CURRENT, NO MEDS Kidney stones Migraine CONTROLLED LATELY Sinus tachycardia OCCASIONAL. USED TO SEE DR DANG. NO PROBLEMS CURRENTLY. Exercise / Class Metabolic Activity II 4-5 Yardwork/Stairs/Walk up hill Past Family History Family History Uncle Family history of diabetes mellitus Father FHx: prostate cancer Past Surgical History Surgical History H/O bilateral breast reduction surgery H/O wrist surgery LEFT History of colonoscopy History of esophagogastroduodenoscopy (EGD) History of hysterectomy MIREYA BSO History of laparoscopy History of lithotripsy Hx of cholecystectomy LAP Past Anesthesia History No Hx of Anesthesia Complications and No Family Hx of Anesthesia Complications History of PONV No Hx of PONV and No Hx of Motion Sickness Social History Smoking Status: Former smoker tobacco type: cigarettes Do You Dip or Chew Tobacco: No Hx Alcohol Use: No Alcohol type: other alcohol intake frequency: other Hx Substance Use: No substance use type: does not use Review of Systems denies fever/cough/ colds/ chest pain/ SOB/ FRANCESCA denies FRANCESCA Physical Exam Vital Signs Last Vital Signs Temp 38.0 C H 09/03/22 17:39 Pulse 110 H 09/03/22 20:44 Resp 17 09/03/22 20:44 BP 117/83 09/03/22 20:44 Pulse Ox 91 09/03/22 20:44 O2 Del Method Room Air 09/03/22 20:44 ENMT Mouth: no TMJ abnormality and no dentition abnormality Thyromental Distance: > or= 3.5 Finger Breadths Mallampati Class: II Neck neck extension not limited Respiratory normal respiratory effort; no respiratory distress Auscultation: lungs clear to auscultation bilaterally Cardiovascular Rate/Rhythm: regular rate and regular rhythm Neurologic moves all extremities Psychiatric Orientation: alert and oriented x 3 Testing Laboratory Results 09/03/22 19:08 09/03/22 19:08 PT 11.2 Seconds (9.0-12.0) 09/03/22 19:08 INR 1.0 (0.9-1.1) 09/03/22 19:08 APTT 28.6 Seconds (21.0-31.0) 09/03/22 19:08 Urine Color Dark Yellow 09/03/22 18:46 Urine Appearance Cloudy (Clear) A 09/03/22 18:46 Urine pH 5.5 (4.5-7.5) 09/03/22 18:46 Ur Specific [place] 1.020 (1.000-1.030) 09/03/22 18:46 Urine Protein 1+ (Negative) H 09/03/22 18:46 Urine Glucose (UA) Negative (Negative) 09/03/22 18:46 Urine Ketones Trace (Negative) H 09/03/22 18:46 Urine Nitrite Negative (Negative) 09/03/22 18:46 Ur Leukocyte Esterase 2+ (Negative) H 09/03/22 18:46 Urine WBC (Auto) >30 /hpf (0-5) H 09/03/22 18:46 Urine RBC (Auto) 0-4 /hpf (0-4) 09/03/22 18:46 U Hyaline Cast (Auto) 0 /lpf (0-5) 09/03/22 18:46 U Epithel Cells (Auto) >30 /lpf (0-5) H 09/03/22 18:46 Urine Bacteria (Auto) 4+ (Negative) H 09/03/22 18:46
--- NOTE | 2022-09-03 21:45 | History & Physical Report ---
Date of Service September 03, 2022 Assessment & Plan (1) Acute left flank pain: Plan: 47 yo female with PMHx nephrolithiasis presents with R flank pain. #Sepsis #Pyelonephritis #Ureteral Stone -2 days R flank pain. Early septic on presentation meeting 3/4 SIRS criteria (tachycardic, febrile, WBC 12), likely source . UA appears infectious. -CT A/P: 0.6 cm proximal right ureteral calculus with hydronephrosis, findings consistent with pyelonephritis -Urology consulted -taken to OR for stent placement given septic picture -given 1 dose rocephin in ED. Continue broad spectrum. Urine and blood cx pending. -cont. LRs @ 125, pain control, zofran prn DVT ppx: SCDs; defer chemical due to procedure FEN/GI: regular Code Status: full Dispo: med tele (2) Hydronephrosis with renal and ureteral calculous obstruction: (3) Urinary tract infection: (4) Pyelonephritis: (5) Fever: History of Present Illness Chief Complaint: R flank pain Primary Care Provider: Mac Allan 47 yo female with PMHx nephrolithiasis presents with R flank pain. 2 days ago patient began feeling right-sided flank pain with radiation to the right abdomen. Associated nausea, fever, and mild shortness of breath on deep inhalation. Denies chest pain, abdominal pain, dysuria, hematuria, constipation, diarrhea, vomiting. She does have an extensive history of nephrolithiasis with her last episode occurring 2 years ago. Allergies Allergy/AdvReac Type Severity Reaction Status Date / Time No Known Allergies Allergy Mild Verified 03/14/20 19:05 Home Medications Medication Instructions Recorded Confirmed Type ketorolac 60 mg/2 mL intramuscular 60 mg IM DIRECTED PRN MIGRAINES 03/05/18 03/14/20 History solution acetaminophen 500 mg tablet 1,000 mg PO DIRECTED PRN 03/14/20 03/14/20 History (Tylenol Extra Strength) FEVER/PAIN docusate sodium 100 mg capsule 100 mg PO BID #60 caps 03/14/20 Rx (Colace) ondansetron HCl 4 mg tablet 4 - 8 mg PO Q6H PRN NAUSEA/VOMITING 03/14/20 03/14/20 History (Zofran) ondansetron HCl 4 mg tablet 4 mg PO Q6H PRN nausea and 03/14/20 Rx (Zofran) vomiting #6 tabs oxycodone 5 mg tablet 5 mg PO Q6H PRN pain #14 tabs 03/14/20 Rx oxycodone-acetaminophen 5 mg-325 2 tab PO Q6H PRN pain #20 tabs 21 03/14/20 Rx mg tablet (Percocet) sennosides 8.6 mg tablet (Senokot) 8.6 mg PO HS #30 tabs 03/14/20 Rx tamsulosin 0.4 mg capsule (Flomax) 0.4 mg PO HS #30 caps 03/14/20 Rx Past Med/Surg History Medical History Crohns disease NO MEDICATIONS. WELL CONTROLLED WITH DIET. GERD (gastroesophageal reflux disease) CURRENT, NO MEDS Kidney stones Migraine CONTROLLED LATELY Sinus tachycardia OCCASIONAL. USED TO SEE DR DANG. NO PROBLEMS CURRENTLY. Surgical History H/O bilateral breast reduction surgery H/O wrist surgery LEFT History of colonoscopy History of esophagogastroduodenoscopy (EGD) History of hysterectomy MIREYA BSO History of laparoscopy History of lithotripsy Hx of cholecystectomy LAP Family History Uncle Family history of diabetes mellitus Father FHx: prostate cancer Social History Smoking Status: Former smoker Tobacco Type: Cigarettes Second Hand Exposure: No; Do You Dip or Chew Tobacco: No; Hx Alcohol Use: No Hx Substance Use: No Preferred Language: Armenian Communication Ability: Effective Visual Impairment: No Limitations Coremaker Supervisor Required: No Beliefs That Will Affect Care: None Current Living Situation: Significant Other Current Living Situation Comment: BOYFRIEND, AUNT , DAUGHTER AND SON IN LAW Feels Safe at Home: Yes Assistive Devices: None Review of Systems Review of Systems: All systems reviewed & are unremarkable except as noted in HPI & below Physical Exam Physical Exam: Constitutional: in no acute distress, pleasant, intact memory. AOx3. Vitals as above. HEENT: No scleral injection or discharge. Moist mucous membranes. Clear oropharynx. Neck: Supple without lymphadenopathy or thyromegaly. Trachea midline. Lungs: Clear to auscultation bilaterally with good effort. No wheezes/rales/rhonchi. Cardiac: Regular rate and rhythm. No murmurs. No extremity edema. 2+ distal peripheral pulses. Abdomen: Bowel sounds present. Soft and nondistended.Mild tenderness R abdomen without guarding. No hepatosplenomegaly. +CVA tenderness on R. MSK: No cyanosis or clubbing. Extremities motor strength 5/5. Skin: No rashes, warm, dry. Neurologic: no focal deficits Results & Data Results & Data Vital Signs (Past 12 Hours) Vital Signs Temp Pulse Pulse Resp BP BP Pulse Ox 09/03/22 20:44 110 H 17 117/83 91 09/03/22 17:39 38.0 C H 138 H 20 121/90 96 O2 Del Method 09/03/22 20:44 Room Air 09/03/22 17:39 Room Air Laboratory Results Laboratory Results WBC 12.81 K/ul (4.8-10.8) H 09/03/22 19:08 RBC 4.69 M/uL (4.20-5.40) 09/03/22 19:08 Hgb 13.3 g/dl (12.0-16.0) 09/03/22 19:08 Hct 40.3 % (37.0-47.0) 09/03/22 19:08 MCV 85.9 fL (80.0-100.0) 09/03/22 19:08 MCH 28.4 pg (25.0-34.0) 09/03/22 19:08 MCHC 33.0 g/dL (32.0-36.0) 09/03/22 19:08 RDW Std Deviation 44.9 fL (36.4-46.3) 09/03/22 19:08 RDW Coeff of Tisha 14.4 % (11.5-14.5) 09/03/22 19:08 Plt Count 272 K/uL (130-400) 09/03/22 19:08 MPV 10.0 fL (9.4-12.4) 09/03/22 19:08 Immature Gran % (Auto) 0.5 % 09/03/22 19:08 Neut % (Auto) 77.9 % 09/03/22 19:08 Lymph % (Auto) 9.5 % 09/03/22 19:08 [place] % (Auto) 11.9 % 09/03/22 19:08 Eos % (Auto) 0.0 % 09/03/22 19:08 Baso % (Auto) 0.2 % 09/03/22 19:08 Neut # (Auto) 9.96 K/uL (1.40-6.50) H 09/03/22 19:08 Lymph # (Auto) 1.22 K/uL (1.2-3.4) 09/03/22 19:08 [place] # (Auto) 1.53 K/uL (0.11-0.59) H 09/03/22 19:08 Eos # (Auto) 0.00 K/uL (0-0.50) 09/03/22 19:08 Baso # (Auto) 0.03 K/uL (0-0.2) 09/03/22 19:08 Immature Gran # (Auto) 0.07 K/uL (0.01-0.20) 09/03/22 19:08 ESR 40 mm/hr (0-20) H 09/03/22 19:08 PT 11.2 Seconds (9.0-12.0) 09/03/22 19:08 INR 1.0 (0.9-1.1) 09/03/22 19:08 APTT 28.6 Seconds (21.0-31.0) 09/03/22 19:08 PTT Ratio 1.0 09/03/22 19:08 Sodium 137 mmol/L (136-145) 09/03/22 19:08 Potassium 3.7 mmol/L (3.5-5.1) 09/03/22 19:08 Chloride 103 mmol/L (98-107) 09/03/22 19:08 Carbon Dioxide 26 mmol/L (21-32) 09/03/22 19:08 Anion Gap 8 (3-11) 09/03/22 19:08 BUN 12 mg/dl (6-23) 09/03/22 19:08 Creatinine 0.79 mg/dl (0.6-1.2) 09/03/22 19:08 Est Cr Clr Drug Dosing 104.3 ml/min 09/03/22 19:08 Est GFR ( Amer) 102.6 ml/min 09/03/22 19:08 Est GFR (Non-Af Amer) 88.5 ml/min 09/03/22 19:08 BUN/Creatinine Ratio 15.2 (10-20) 09/03/22 19:08 Glucose 138 mg/dl (70-99(Fasting)) H 09/03/22 19:08 Lactate 1.0 mmol/L (0.4-2.0) 09/03/22 19:08 Calcium 9.7 mg/dl (8.6-10.3) 09/03/22 19:08 Total Bilirubin 0.5 mg/dl (0.2-1.0) 09/03/22 19:08 AST 15 U/L (13-39) 09/03/22 19:08 ALT 25 U/L (7-52) 09/03/22 19:08 Alkaline Phosphatase 79 U/L (34-104) 09/03/22 19:08 Troponin I High Sens 3.1 pg/ml (0-14) 09/03/22 19:08 C-Reactive Protein 21.49 mg/dl (0-0.5) H 09/03/22 19:08 Total Protein 7.7 gm/dl (6.0-8.3) 09/03/22 19:08 Albumin 4.2 gm/dl (3.4-5.0) 09/03/22 19:08 Globulin 3.5 gm/dl (2.5-4.0) 09/03/22 19:08 Albumin/Globulin Ratio 1.2 (0.9-2) 09/03/22 19:08 Lipase 15 U/L (11-82) 09/03/22 19:08 Procalcitonin 0.17 ng/ml (0-0.5) 09/03/22 19:08 Urine Color Dark Yellow 09/03/22 18:46 Urine Appearance Cloudy (Clear) A 09/03/22 18:46 Urine pH 5.5 (4.5-7.5) 09/03/22 18:46 Ur Specific [place] 1.020 (1.000-1.030) 09/03/22 18:46 Urine Protein 1+ (Negative) H 09/03/22 18:46 Urine Glucose (UA) Negative (Negative) 09/03/22 18:46 Urine Ketones Trace (Negative) H 09/03/22 18:46 Urine Blood 1+ (Negative) H 09/03/22 18:46 Urine Nitrite Negative (Negative) 09/03/22 18:46 Urine Bilirubin Negative (Negative) 09/03/22 18:46 Urine Urobilinogen Negative (Negative) 09/03/22 18:46 Ur Leukocyte Esterase 2+ (Negative) H 09/03/22 18:46 Urine WBC (Auto) >30 /hpf (0-5) H 09/03/22 18:46 Urine RBC (Auto) 0-4 /hpf (0-4) 09/03/22 18:46 U Hyaline Cast (Auto) 0 /lpf (0-5) 09/03/22 18:46 U Epithel Cells (Auto) >30 /lpf (0-5) H 09/03/22 18:46 Urine Bacteria (Auto) 4+ (Negative) H 09/03/22 18:46 Urine Mucus Present (None Prsent) A 09/03/22 18:46 SARS-CoV-2, RNA, NAAT NEGATIVE (NEGATIVE) 09/03/22 20:23 Impressions Abdomen/Pelvis CT 09/03/22 17:49 Exam(s): CT ABDOMEN + PELVIS With Contrast IV Amt: 95ML OPTIRAY 320 EXAM: CT Abdomen and Pelvis With Intravenous Contrast CLINICAL HISTORY: Reason for exam: right flank pain, fever. TECHNIQUE: Axial computed tomography images of the abdomen and pelvis with intravenous contrast. CTDI is 27.87 mGy and DLP is 1499.19 mGy-cm. Automated exposure control was utilized for the study. A dose lowering technique was utilized adhering to the principles of ALARA. CONTRAST: Patient received 95ML OPTIRAY 320 of IV contrast COMPARISON: No relevant prior studies available. FINDINGS: Lung bases: Unremarkable. No mass. No consolidation. ABDOMEN: Liver: Fatty infiltration of liver. Gallbladder and bile ducts: See below. Pancreas: Unremarkable. No mass. No ductal dilation. Spleen: Unremarkable. No splenomegaly. Adrenals: Unremarkable. No mass. Kidneys and ureters: Subtle area of heterogeneous enhancement involving the inferior pole right kidney with what slight perinephric stranding. Mild right hydroureteronephrosis secondary to a 0.6 cm proximal right ureteral calculus. Postoperative changes prior cholecystectomy. . Nonobstructing left intrarenal calculi. Stomach and bowel: Unremarkable. No obstruction. No mucosal thickening. PELVIS: Appendix: No findings to suggest acute appendicitis. Bladder: Unremarkable. No mass. Reproductive: Uterus is surgically absent. ABDOMEN and PELVIS: Intraperitoneal space: Unremarkable. No free air. No significant fluid collection. Bones/joints: No acute fracture. No dislocation. Soft tissues: Unremarkable. Vasculature: Unremarkable. No abdominal aortic aneurysm. Lymph nodes: Unremarkable. No enlarged lymph nodes. IMPRESSION: Findings consistent with pyelonephritis secondary to obstructing right ureteral calculus as described above Electronically signed by: Steve Domínguez MD 09/03/22 20:44 PM Chest X-Ray 09/03/22 17:49 XR chest 1V portable CLINICAL HISTORY: Fever. COMPARISON STUDY: Chest radiograph July 18, 2018. FINDINGS: Lung volumes are mildly diminished. Lungs are clear. There is no pneumothorax or pleural effusion. Cardiac size is normal. Mediastinal contours are normal. There is no evidence for pulmonary edema. IMPRESSION: No acute cardiopulmonary findings. ACT 112: Negative or not required by law. Electronically signed by: Don Campos M.D. 09/03/2022 6:39 PM Code Status & VTE Plan VTE Prophylaxis Plan VTE Prophylaxis will be ordered: Yes Resident Activity Tracking Resident Involvement: Resident Care Provided Care Provided: Adult Hospital Medicine (5) Fever Fever type: unspecified Qualified Code(s): R50.9 - Fever, unspecified
[2022-09-03] MEDS ORDERED: DIATRIZOATE MEGLUMINE 30% 100ML VIAL INSTIL ONE (21:58)
--- NOTE | 2022-09-03 22:02 | Post Operative Brief Note ---
PG Immediate Post Op with CF Date of Surgery September 03, 2022 Pre & Post Diagnosis Right ureteral calculus, sepsis Operation Date: 09/03/22 22:00 <No data on this case meets the specified criteria> Right ureteral calculus, sepsis I identified the patient and participated in the time-out.: Yes Procedure Cystoscopy, right retrograde pyelogram with radiograph interpretation, right ureteral stent placement, Rocha catheter placement Operation Date: 09/03/22 22:00 <No data on this case meets the specified criteria> Surgeon Urbano Ricketts MD Hand Fretted Instrument Maker None Estimated Blood Loss 0 Findings See Below Contrast retained in right kidney from previous CT scan. Mild hydronephrosis. Stent in appropriate position also somewhat difficult to see caruncle with contrast already in kidney but under live fluoroscopy was in the appropriate position. Specimens Specimen Description: None per surgeon Drains Rocha Catheter Anesthesia Type General Complications none
--- NOTE | 2022-09-03 22:04 | Operative Report ---
PG Post Operative Report Pre & Post Diagnosis Right ureteral calculus, sepsis Operation Date: 09/03/22 22:00 <No data on this case meets the specified criteria> Right ureteral calculus, sepsis I identified the patient and participated in the time-out.: Yes Procedure Cystoscopy, right retrograde pyelogram with radiographic interpretation, right ureteral stent placement, Rocha catheter placement Operation Date: 09/03/22 22:00 <No data on this case meets the specified criteria> Surgeon Urbano Ricketts MD Luncheonette Operator None Estimated Blood Loss 0 Findings See Below Contrast retained in kidney from previous CT scan in ED. Retrograde showed mild hydronephrosis. Somewhat difficult to see proximal curl of stent due to retained contrast however it was in the collecting system based on live fluoroscopy. Specimens None Drains 1. 6 Tongan by 24 cm right ureteral stent 2. 16 Tongan Rocha catheter with 10 cc in balloon Anesthesia Type General Complications none Indications 47-year-old female with a right obstructing ureteral calculus, fevers and tachycardia consistent with sepsis. Taken emergently to the OR for right ureteral stent placement. Description of Procedure After informed consent was obtained, the patient was transported operative suite. General anesthesia was induced. The patient was placed in dorsolithotomy position prepped and draped in a sterile fashion. They received preoperative ceftriaxone for antibiotic prophylaxis. An appropriate surgical timeout was performed. A 22 Tongan rigid scope was inserted per urethra into the bladder. Johnson cystoscopy revealed no stones or lesions. I turned my attention the right ureteral orifice and intubated this with a 5 Tongan open-ended catheter. A right retrograde pyelogram was shot which showed the above-noted findings. A sensor wire was advanced into the kidney and confirmed fluoroscopically. A 6 Tongan by 24 cm right ureteral stent was deployed with a good proximal coil in the renal pelvis and a good distal coil noted in the bladder, confirmed fluoroscopically and under direct visualization, respectively. The bladder was left full and the scope was removed. 16 Tongan Rocha catheter was inserted with return of clear urine. Balloon was inflated with 10 cc of sterile water. This concluded the end of the case. All counts were correct at the end of the case. I was present, scrubbed, and actively participated for the entirety of the procedure. I attest to the content of the Intraoperative Record and any orders documented therein. Any exceptions are noted below.
--- NOTE | 2022-09-03 22:14 | Anesthesiology Progress Note ---
Date of Service September 03, 2022 Anesthesia Post Procedure Vital Signs Vital Signs: Temp Pulse Pulse Resp BP BP Pulse Ox 09/03/22 20:44 110 H 17 117/83 91 09/03/22 17:39 38.0 C H 138 H 20 121/90 96 O2 Del Method 09/03/22 20:44 Room Air 09/03/22 17:39 Room Air Pain Intensity Lower Abdomen: Pain Intensity: 10 Transfer of Care Handoff Completed per policy Notes Mental Status: alert / awake / arousable and participated in evaluation Patient Amnestic to Procedure: Yes Nausea / Vomiting: adequately controlled Pain: adequately controlled Airway Patency, RR, SpO2: stable & adequate BP & HR: stable & adequate Hydration State: stable & adequate Anesthetic Complications: no major complications apparent and Pt Satisfied with anesthetic care
[2022-09-03] MEDS ORDERED: ONDANSETRON 4 MG OD TAB PO PRN (22:46)
[2022-09-03] MEDS ORDERED: MoRPHine SULFATE 2 MG/ML CARP IV PRN (22:46)
[2022-09-03] MEDS: ACETAMINOPHEN 325 MG TAB PO PRN (23:20)
[2022-09-04] MEDS: LACTATED RINGER'S 1,000 ML IV SCH ×2 (03:36→14:35)
--- NOTE | 2022-09-04 07:23 | Fluoroscopy Report ---
FL retrograde includes kub CLINICAL HISTORY: RIGHT SIDE STENT COMPARISON STUDY: CT of the abdomen and pelvis September 03, 2022 at 7:59 PM. FLUOROSCOPY TIME: 12 seconds. Ka r: 3.73 mGy FLUOROSCOPIC IMAGES: 2 FINDINGS: Fluoroscopy was provided during right retrograde pyelogram with right ureteral stent placem ent. Proximal aspect of the stent is within the renal pelvis. There is mild right collecting system d ilatation. IMPRESSION: Fluoroscopy provided during right retrograde pyelogram with right ureteral stent placeme nt. ACT 112: Negative or not required by law. Electronically signed by: Don Campos M.D. 09/04/2022 7:22 AM
[2022-09-04 07:25] LABS: Basophils # (auto) 0.02 K/uL (0-0.2); Basophils % (auto) 0.2 %; Hematocrit (blood only) 38.2 % (37.0-47.0); Hemoglobin 12.5 g/dl (12.0-16.0); Immature Granulocytes # (auto) 0.09 K/uL (0.01-0.20); Immature Granulocytes % (auto) 0.8 %; Lymphocytes # (auto) 0.67 K/uL (1.2-3.4); Lymphocytes % (auto) 6.3 %; Mean Corpuscular Hemoglobin 28.5 pg (25.0-34.0); Mean Corpuscular Hgb Conc 32.7 g/dL (32.0-36.0); Mean Corpuscular Volume 87.2 fL (80.0-100.0); Mean Platelet Volume 10.4 fL (9.4-12.4); Monocytes # (auto) 0.37 K/uL (0.11-0.59); Monocytes % (auto) 3.5 %; Neutrophils # (auto) 9.57 K/uL (1.40-6.50); Neutrophils % (auto) 89.2 %; Platelet Count 254 K/uL (130-400); RDW Coefficient of Variation 14.1 % (11.5-14.5); RDW Standard Deviation 45.1 fL (36.4-46.3); Red Blood Count 4.38 M/uL (4.20-5.40); White Blood Count 10.72 K/ul (4.8-10.8)
[2022-09-04 07:49] LABS: Albumin Globulin Ratio 1.1 (0.9-2); Albumin Level 3.5 gm/dl (3.4-5.0); BUN Creatinine Ratio 22.9 (10-20); Bilirubin,Total 0.3 mg/dl (0.2-1.0); C Reactive Protein 21.63 mg/dl (0-0.5); Creatinine Clr Calc Pharmacy 113.5 ml/min; Est GFR (African American) 118.7 ml/min; Est GFR (Non-African American) 102.5 ml/min; Globulin 3.3 gm/dl (2.5-4.0); Magnesium 2.1 mg/dl (1.7-2.4); Potassium 4.4 mmol/L (3.5-5.1); Total Protein 6.8 gm/dl (6.0-8.3)
--- NOTE | 2022-09-04 08:27 | Urology Progress Note ---
Date of Service September 04, 2022 Assessment & Plan (1) Hydronephrosis with renal and ureteral calculous obstruction: (2) Flank pain: (3) Urinary tract infection: Plan 47yo/F admitted with intractable flank pain and concern for infection secondary to an obstructing right ureteral stone. POD #1 s/p Cystoscopy, right retrograde pyelogram with radiographic interpretation, right ureteral stent placement, Rocha catheter placement. Afebrile and hemodynamically stable. Labs today show no leukocytosis, stable hemoglobin, and a normal renal function. Urine culture prelim gram negative bacilli, blood cultures pending. On Ceftriaxone, follow cultures and tailor as culture data becomes available. Rocha draining tea colored urine. OK to remove Rocha this morning and monitor for void. Continue supportive care, antibiotics, prn pain management. Will add PRN Pyridium for stent discomfort. She reports poorly tolerating Tamsulosin in the past. Will arrange outpatient follow-up with our service for definitive stone treatment after the infection has been treated. Recommend d/c with course of PO antibiotics, prn Pyridium and prn pain medication for stent management. Urology will follow peripherally. Please contact us with any further questions, concerns, or changes in patient status. Admission and Anticipated Discharge Date Admission Date: September 03, 2022 Subjective Pt examined at bedside this AM. Awake, resting in bed on arrival. No acute distress. Still with some right sided pain. No fevers overnight. Rocha intact, draining tea colored urine. Poor appetite but no nausea/vomiting. Review of Systems Constitutional: as per Subjective / HPI Gastrointestinal: as per Subjective / HPI Genitourinary: as per Subjective / HPI Physical Exam Constitutional: well developed and well nourished; no acute distress Respiratory: normal respiratory effort; no respiratory distress and no labored breathing Musculoskeletal: Head/Neck/Chest: normocephalic Skin: No visible rashes or lesions to exposed skin areas Neurologic: awake Psychiatric: A+Ox3, euthymic affect Genitourinary: Rocha catheter intact Results & Data Vital Signs (Past 12 Hours) Vital Signs Temp Pulse Pulse Pulse Pulse Resp BP 09/04/22 07:50 36.7 C 85 16 103/69 09/04/22 07:31 68 09/04/22 00:58 103 H 09/03/22 22:46 37.4 C 101 H 18 119/79 09/03/22 22:48 06/25/23 22:48 37.4 C 101 H 18 119/79 09/03/22 22:30 37.1 C 100 H 20 109/69 09/03/22 22:20 102 H 22 116/72 09/03/22 22:10 36.1 C L 113 H 20 120/78 09/03/22 20:44 110 H 17 117/83 Pulse Ox O2 Del Method 09/04/22 07:50 92 Room Air 09/04/22 07:31 09/04/22 00:58 09/03/22 22:46 92 Room Air 09/03/22 22:48 Room Air 09/03/22 22:48 92 Room Air 09/03/22 22:30 95 Room Air 09/03/22 22:20 93 Room Air 09/03/22 22:10 92 Room Air 09/03/22 20:44 91 Room Air PG Care Time/CCT Total # of Minutes Spent Total Time Spent with Patient: Total time spent is greater than 50% in coordination of care (as documented) at patient's floor/unit and/or counseling patient: Coding Level of Care Code 68455 SUB INP/OBS CARE 2/35MIN Diagnoses Hydronephrosis with renal and ureteral calculous obstruction N13.2 Flank pain R10.9 Urinary tract infection N39.0
[2022-09-04] MEDS: ACETAMINOPHEN 325 MG TAB PO PRN (08:47)
[2022-09-04] MEDS: PHENAZOPYRIDINE HCL 100 MG TAB PO PRN (09:20)
[2022-09-04] MEDS ORDERED: oxyCODONE HCL IR 5 MG TAB (IMMEDIATE RELEASE) PO STA (10:18)
[2022-09-04] MEDS ORDERED: MoRPHine SULFATE 2 MG/ML CARP IV PRN (12:11)
[2022-09-04] MEDS: HYDROmorphone INJ 1 MG/ML SYRINGE IV PRN ×3 (12:25→19:52)
[2022-09-04] MEDS: PROMETHAZINE HCL 12.5 MG in SODIUM CHLORIDE 0.9% 50 ML IV PRN (12:53)
[2022-09-04] MEDS ORDERED: oxyCODONE HCL IR 5 MG TAB (IMMEDIATE RELEASE) PO PRN (14:27)
--- NOTE | 2022-09-04 14:50 | Hospitalist Progress Note ---
Date of Service September 04, 2022 Assessment & Plan (1) Hydronephrosis with renal and ureteral calculous obstruction: Plan: Right-sided. Urology consultation and recommendations appreciated. Status post right ureteral stent placement yesterday, September 03. Postoperative day #1 (2) Urinary tract infection: Plan: Gram-negative bacilli isolated. Continue Rocephin. Will tailor antibiotics according to identification and sensitivities (3) Sepsis: Plan: Present on admission. Now resolved Plan Hopefully home tomorrow, September 05 Admission and Anticipated Discharge Date Admission Date: September 03, 2022 Subjective Alert and oriented. Right flank pain is main complaint. Postoperative day #1 after cystoscopy with right stent placement. She remains on Rocephin. Urine culture growing gram-negative rods. Pyridium has been added for stent discomfort. She is also receiving oxycodone as needed. Hopefully she can go home tomorrow, September 05 Review of Systems Review of Systems: Constitutional-no fever or chills ENT-no blurred vision, no double vision, no epistaxis, no sore throat Respiratory-no cough, no wheezing, no shortness of breath Cardiac-no palpitations, no chest pain, no syncope GI-no nausea, vomiting, diarrhea, melena, hematochezia -no urinary retention, no urinary incontinence, no dysuria, no hematuria. Intermittent right flank pain Musculoskeletal-no joint pain, no muscle tenderness Skin-no bruising, no rashes, no pruritus Neuro-no isolated weakness, no paresthesia, no weakness Psych-no depression, no anxiety Physical Exam Physical Exam: General-alert and oriented x3, no fevers, no chills HEENT-head atraumatic and normocephalic, pupils equal and reactive to light, extraocular muscles intact Neck-no lymphadenopathy or thyromegaly, trachea midline Chest-clear to auscultation percussion. No rales wheezing or rhonchi Cardiac-regular rate and rhythm, normal S1 and S2 Abdomen-normal bowel sounds, nontender, no hepatosplenomegaly GUFoley catheter in place. No hematuria Extremities-no cyanosis, clubbing, or edema Neuro-cranial nerves II through XII intact, motor and sensory function within normal limits, strength symmetrical , no focal deficits Psych-normal affect, normal mood Results & Data Results & Data Vital Signs (Past 12 Hours) Vital Signs Temp Pulse Pulse Resp BP Pulse Ox O2 Del Method 09/04/22 13:07 Nasal Cannula 09/04/22 12:44 36.5 C 80 18 100/63 95 Nasal Cannula 09/04/22 12:08 36.5 C 71 16 168/87 H 89 L Room Air 09/04/22 11:00 36.7 C 76 18 101/68 92 Room Air 09/04/22 07:50 36.7 C 85 16 103/69 92 Room Air 09/04/22 07:31 68 O2 Flow Rate 09/04/22 13:07 2 09/04/22 12:44 2 09/04/22 12:08 09/04/22 11:00 09/04/22 07:50 09/04/22 07:31 Laboratory Results 09/04/22 06:40 09/04/22 06:40 PG Care Time/CCT Total # of Minutes Spent Total Time Spent with Patient: Total time spent is greater than 50% in coordination of care (as documented) at patient's floor/unit and/or counseling patient: Coding Level of Care Code 71201 SUB INP/OBS CARE 3/50MIN Diagnoses Hydronephrosis with renal and ureteral calculous obstruction N13.2 Urinary tract infection N39.0 Sepsis A41.9
[2022-09-04] MEDS: cefTRIAXone SODIUM 2,000 MG in DEXTROSE 5% 50 ML IV SCH (17:48)
[2022-09-05] MEDS: HYDROmorphone INJ 1 MG/ML SYRINGE IV PRN ×3 (01:21→18:17)
[2022-09-05] MEDS: LACTATED RINGER'S 1,000 ML IV SCH (01:22)
[2022-09-05] MEDS: PROMETHAZINE HCL 12.5 MG in SODIUM CHLORIDE 0.9% 50 ML IV PRN (01:42)
[2022-09-05] MEDS: ACETAMINOPHEN 325 MG TAB PO PRN ×2 (05:51→15:30)
[2022-09-05] MEDS: PHENAZOPYRIDINE HCL 100 MG TAB PO PRN ×2 (06:13→15:30)
--- NOTE | 2022-09-05 08:22 | Electrocardiogram Report ---
Test Reason : Blood Pressure : / mmHG Vent. Rate : 121 BPM Atrial Rate : 121 BPM P-R Int : 138 ms QRS Dur : 076 ms QT Int : 294 ms P-R-T Axes : 041 021 034 degrees QTc Int : 417 ms Sinus tachycardia Nonspecific ST abnormality Abnormal ECG When compared with ECG of 19-DEC-2021 15:20, Vent. rate has increased BY 43 BPM Confirmed by Sly Neves ([id number]) on 09/05/2022 8:21:56 AM Referred By: REFERRED SELF Confirmed By:Sly Neves
--- NOTE | 2022-09-05 08:49 | XRay Report ---
XR chest 1V portable CLINICAL HISTORY: hypoxia TECHNIQUE: Single frontal radiograph of the chest was obtained. Comparison: Comparison is made to chest radiograph 09/03/2022 FINDINGS: No lines and tubes are seen. Cardiomegaly is noted. Bilateral lower lung predominant airspace opaciti es are seen. No evidence of pleural effusion or pneumothorax. IMPRESSION: Bilateral lower lung predominant airspace opacities which may represent atelectasis, pneumonia, and/o r aspiration. ACT 112: Negative or not required by law. Electronically signed by: Toby Wilkerson M.D. 09/05/2022 8:47 AM
[2022-09-05] MEDS: cefTRIAXone SODIUM 2,000 MG in DEXTROSE 5% 50 ML IV SCH (08:51)
[2022-09-05] MEDS ORDERED: FUROSEMIDE 40 MG/4 ML VIAL IV ONE (08:53)
--- NOTE | 2022-09-05 12:30 | Hospitalist Progress Note ---
Date of Service September 05, 2022 Assessment & Plan (1) Hydronephrosis with renal and ureteral calculous obstruction: Plan: Right-sided. Urology consultation and recommendations appreciated. Status post right ureteral stent placement completed on September 03. Postoperative day #2 (2) Urinary tract infection: Plan: E. coli isolated. Pansensitive. Continue Rocephin. (3) Sepsis: Plan: Present on admission. Now resolved (4) Acute respiratory failure with hypoxia: Plan: Due to atelectasis and possibly some fluid overload. She was given intravenous Lasix earlier today and incentive spirometry has been ordered. Will wean oxygen off as tolerated Plan Hopefully home tomorrow, September 06 Admission and Anticipated Discharge Date Admission Date: September 03, 2022 Subjective Alert and oriented. No distress. She is requiring low-flow oxygen. Chest x- ray shows bilateral lower lobe opacities, probably atelectasis but there may be some fluid also. She has received intravenous Lasix and incentive spirometry has been ordered. No further IV fluids at this time. Urine culture growing E. coli which is pansensitive. She remains on intravenous Rocephin. Postoperative day #2 after cystoscopy and right ureter stent placement. Hopefully home tomorrowSeptember 06 Review of Systems Review of Systems: Constitutional-no fever or chills ENT-no blurred vision, no double vision, no epistaxis, no sore throat Respiratory-no cough, no wheezing. Shortness of breath noted with exertion Cardiac-no palpitations, no chest pain, no syncope GI-no nausea, vomiting, diarrhea, melena, hematochezia -no urinary retention, no urinary incontinence, no dysuria, no hematuria. Intermittent right flank pain Musculoskeletal-no joint pain, no muscle tenderness Skin-no bruising, no rashes, no pruritus Neuro-no isolated weakness, no paresthesia, no weakness Psych-no depression, no anxiety Physical Exam Physical Exam: General-alert and oriented x3, no fevers, no chills HEENT-head atraumatic and normocephalic, pupils equal and reactive to light, extraocular muscles intact Neck-no lymphadenopathy or thyromegaly, trachea midline Chest-bibasilar dullness and diminished breath sounds. No wheezing or rhonchi Cardiac-regular rate and rhythm, normal S1 and S2 Abdomen-normal bowel sounds, nontender, no hepatosplenomegaly GUFoley catheter in place. No hematuria Extremities-no cyanosis, clubbing, or edema Neuro-cranial nerves II through XII intact, motor and sensory function within normal limits, strength symmetrical , no focal deficits Psych-normal affect, normal mood Results & Data Results & Data Vital Signs (Past 12 Hours) Vital Signs Temp Pulse Pulse Resp BP Pulse Ox O2 Del Method 09/05/22 11:02 36.5 C 86 18 101/70 97 Nasal Cannula 09/05/22 07:57 36.9 C 79 18 119/76 94 Nasal Cannula 09/05/22 07:58 Nasal Cannula 09/05/22 06:00 81 09/05/22 03:38 36.7 C 64 18 95/63 L 97 Nasal Cannula O2 Flow Rate 09/05/22 11:02 2 09/05/22 07:57 2 09/05/22 07:58 2 09/05/22 06:00 09/05/22 03:38 2 Laboratory Results 09/04/22 06:40 09/04/22 06:40 PG Care Time/CCT Total # of Minutes Spent Total Time Spent with Patient: Total time spent is greater than 50% in coordination of care (as documented) at patient's floor/unit and/or counseling patient: Coding Level of Care Code 90381 SUB INP/OBS CARE 3/50MIN Diagnoses Hydronephrosis with renal and ureteral calculous obstruction N13.2 Urinary tract infection N39.0 Sepsis A41.9 Acute respiratory failure with hypoxia J96.01
[2022-09-06] MEDS: HYDROmorphone INJ 1 MG/ML SYRINGE IV PRN (00:38)
[2022-09-06] MEDS: cefTRIAXone SODIUM 2,000 MG in DEXTROSE 5% 50 ML IV SCH (08:28)
[2022-09-06] MEDS: ACETAMINOPHEN 325 MG TAB PO PRN (08:32)
[2022-09-06] MEDS ORDERED: PHENAZOPYRIDINE HCL 100 MG TAB PO PRN (09:02)
--- NOTE | 2022-09-06 11:24 | Discharge Summary ---
Date of Service September 06, 2022 Admission HPI Per Admitting Provider 47 yo female with PMHx nephrolithiasis presents with R flank pain. 2 days ago patient began feeling right-sided flank pain with radiation to the right abdomen. Associated nausea, fever, and mild shortness of breath on deep inhalation. Denies chest pain, abdominal pain, dysuria, hematuria, constipation, diarrhea, vomiting. She does have an extensive history of nephrolithiasis with her last episode occurring 2 years ago. Principal Diagnosis Right ureter calculus, right ureter colic, right hydronephrosis, E. coli UTI, hypoxia due to atelectasis Discharge Exam General-alert and oriented x3, no fevers, no chills HEENT-head atraumatic and normocephalic, pupils equal and reactive to light, extraocular muscles intact Neck-no lymphadenopathy or thyromegaly, trachea midline Chest-bibasilar dullness and diminished breath sounds. No wheezing or rhonchi Cardiac-regular rate and rhythm, normal S1 and S2 Abdomen-normal bowel sounds, nontender, no hepatosplenomegaly GUFoley catheter in place. No hematuria Extremities-no cyanosis, clubbing, or edema Neuro-cranial nerves II through XII intact, motor and sensory function within normal limits, strength symmetrical , no focal deficits Psych-normal affect, normal mood Discharge Data Allergies Allergy/AdvReac Type Severity Reaction Status Date / Time No Known Allergies Allergy Mild Verified 03/14/20 19:05 Consultations 09/03/22 20:16 Consult Urology Stat 09/03/22 20:25 ED Decision to Admit Stat Procedures Performed Operation Date: 09/03/22 22:00 Actual Procedures p Cystoscopy, Right Retrograde Pyelogram, Right Ureteral Stent Placement(Not Applicable) - Urbano Ricketts MD Ordered Studies 09/03/22 17:49 CT abd pelvis IV con only Stat 09/03/22 21:07 FL retrograde includes kub Routine Hospital Course (1) Hydronephrosis with renal and ureteral calculous obstruction: Right-sided. Urology consultation and recommendations appreciated. Status post right ureteral stent placement completed on September 03. Postoperative day #3 (2) Urinary tract infection: E. coli isolated. Pansensitive. Treated with Rocephin while hospitalized. She will be discharged home on Cipro (3) Sepsis: Present on admission. Now resolved (4) Acute respiratory failure with hypoxia: Due to atelectasis and possibly some fluid overload. She was given intravenous Lasix on September 05 and incentive spirometry has been ordered. She is now off oxygen Plan Home today, September 06 Total Time Total Time Spent Total Time Spent (In Minutes): 40 minutes Discharge Plan Discharge Items Patient Disposition: Home - Self-Care Reason For Visit: URETERAL STONE Discharge Diagnosis: Right ureter calculus and colic, right hydronephrosis, E. coli UTI, transient hypoxia secondary to pulmonary atelectasis Activity: Resume your previous activity Non-emergency contact: Primary Care Provider Call non-emergency contact if: you have any medication questions and your symptoms worsen Follow-up/Referrals: Mac Allan [Primary Care Provider] - (PLEASE CALL YOUR PRIMARY CARE PROVIDER TO SCHEDULE A DISCHARGE FOLLOW-UP APPOINTMENT WITHIN 7-10 DAYS) Diet: Regular Addtl Attending Provider Instructions: Take Cipro twice daily. Take Pyridium 3 times daily. Use oxycodone as needed for pain. Follow-up with urology as scheduled. Off work until further notice Addtl Property Analyst Provider Instructions: Please call the urology office at [phone] with any questions, concerns or need to reschedule appointments for any reason. We are happy to assist you. While you have a ureteral stent in place: Some discomfort is normal. Certain movements may trigger pain or a feeling that you need to urinate. You may also feel mild soreness or pressure before or during urination. Your urine may be slightly pink or red. This is due to bleeding caused by minor irritation from the stent. This may happen on and off while you have the stent, it is not harmful and is to be expected. Medication to help minimize discomfort or bladder spasms, or to prevent infection may be prescribed. Take this as directed. Drink plenty of fluids to help flush out your urinary tract. When to call [facility] at [phone]: Your urine contains heavy blood clots or you are unable to urinate You are constantly leaking urine Fever of 101F or higher, chills, nausea, or vomiting Your pain is not relieved with medication The end of the stent comes out of your urethra Pending Studies at Discharge: No Stand-Alone Forms: [employer] OTR, Work/School Release, Smoking Cessation Medications and DC Order Prescriptions: New phenazopyridine [Pyridium] 100 mg Tablet 100 mg PO TID Qty: 21 0RF ciprofloxacin HCl [Cipro] 500 mg tablet 500 mg PO BID Qty: 14 0RF Continued sennosides [Senokot] 8.6 mg tablet 8.6 mg PO HS Qty: 30 0RF docusate sodium [Colace] 100 mg capsule 100 mg PO BID Qty: 60 0RF ondansetron HCl [Zofran] 4 mg tablet 4 mg PO Q6H PRN (Reason: nausea and vomiting) Qty: 6 0RF tamsulosin [Flomax] 0.4 mg capsule 0.4 mg PO HS Qty: 30 0RF ondansetron HCl [Zofran] 4 mg Tablet 4 - 8 mg PO Q6H PRN (Reason: NAUSEA/VOMITING) oxycodone 5 mg tablet 5 mg PO Q6H PRN (Reason: pain) Qty: 14 0RF Discontinued ketorolac 60 mg/2 mL solution 60 mg IM DIRECTED PRN (Reason: MIGRAINES) acetaminophen [Tylenol Extra Strength] 500 mg Tablet 1,000 mg PO DIRECTED PRN (Reason: FEVER/PAIN) oxycodone-acetaminophen [Percocet] 5-325 mg tablet 2 tab PO Q6H PRN (Reason: pain) Qty: 20 0RF Discharge Orders: Discharge Order (Routine); Ordered 09/06/22 Ordered By: Gonzalez Phipps Admission Data Admit Date/Time: 09/03/22 21:44 Attending Provider: Gonzalez Phipps Admit Provider: Ton Esteban Primary Care Provider: Mac Allan Other Providers: Urbano Ricketts ; Sriram Estrada Coding Level of Care Code 24301 INP/OBS DISCH >30 MIN Diagnoses Hydronephrosis with renal and ureteral calculous obstruction N13.2 Urinary tract infection N39.0 Sepsis A41.9 Acute respiratory failure with hypoxia J96.01
== END 2022-09-06 12:31 | disposition home or self-care (01) | DRG 853 ==
LOC: ED 17:35 → OR 21:17 → 2N 21:44 → SUATTDRO 21:44

== ENCOUNTER 2022-09-10 22:37 | Observation (INO) ==
[2022-09-10] MEDS ORDERED: ONDANSETRON INJ 2 MG/ML 2 ML VIAL IV STA (22:56)
[2022-09-10] MEDS ORDERED: SODIUM CHLORIDE 0.9% 1000ML 1,000 ML IV STA (22:56)
[2022-09-10] MEDS ORDERED: HYDROmorphone INJ 1 MG/ML SYRINGE IV STA (23:31)
[2022-09-10] MEDS ORDERED: cefTRIAXone SODIUM 2,000 MG/70 ML BAG IV STA (23:31)
[2022-09-10] MEDS ORDERED: KETOROLAC TROMETHAMINE 15 MG/ML VIAL IV ONE (23:31)
[2022-09-10] MEDS ORDERED: SODIUM CHLORIDE 0.9% 1000ML 1,000 ML IV ONE (23:34)
--- NOTE | 2022-09-10 23:34 | Emergency Department Note ---
Impression & Plan Acute left flank pain, Urinary tract infection, Renal colic ED Provider Note NAME: DEANDRE CARRIZALES AGE: 47 SEX: F : 1975 ARRIVES VIA: Walk-In INFORMANT: Patient ED PROVIDER(S): Steve Guajardo DO CHIEF COMPLAINT: chills HPI: Patient is a 47-year-old female who presents to the ER who was recently admitted and discharged secondary to urosepsis from a kidney stone. She had a stent placed now she is having pain on both sides which has worsened. She notes that the left flank pain is new. She was having chills and was shaking last night. She did not check her temperature. She notes she started to feel worse again. She was taking her antibiotics. She denies any headache or change in vision. No chest pain or shortness of breath. No cough or congestion. No dys uria, urgency, or frequency. She notes that the Oxy that she was discharged with was not helping and she is taking 10 of Vicodin. PAST MEDICAL HISTORY:See Below PAST SURGICAL HISTORY:See Below FAMILY HISTORY:See Below SOCIAL HISTORY:See Below HOME MEDICATIONS:See Below ALLERGIES:See Below VITALS:See Below PHYSICAL EXAMINATION: GENERAL: Sitting up in bed, alert, disheveled, moderate distress EYE EXAM: normal conjunctiva. OROPHARYNX: mucous membranes are moist NECK: supple, no nuchal rigidity, no adenopathy, non-tender LUNGS: Clear to auscultation. Normal chest wall mechanics HEART: no murmurs, S1 normal and S2 normal ABDOMEN: abdomen soft, non-tender, normo-active bowel sounds, no masses, no rebound or guarding. BACK: Back is symmetrical on inspection and there is no deformity, no midline tenderness, no CVA tenderness. UPPER EXTREMITIES: upper extremities are grossly normal. LOWER EXTREMITIES: No pitting edema. NEURO EXAM: Normal sensorium, cranial nerves II-XII grossly intact, normal speech, no gross weakness of arms, no gross weakness of legs. MEDICAL DECISION MAKING: Patient is a 47-year-old female with a past medical history of sepsis secondary to renal colic and kidney stone with a stent in place who presents to the ER for flank pain associated with chills. IV was established blood work was obtained. External records were reviewed in regards to recent admission. Urine culture grew out E. coli. Labs show mild leukocytosis 11,000. No significant anemia. BMP along LFTs bilirubin and Pro-Grupo was unremarkable. UA was positive for nitrates as well as whites and leuks but was contaminated. Patient was given multiple doses of Dilaudid. KUB shows stent still in place. Chest x-ray was clean. She was updated bedside. Patient is still having a fair amount of pain even with IV narcotics. Discussed with the hospitalist for further evaluation management treatment Dr. Mindy Luo. Triage Nursing notes reviewed. Limited review of prior medical records performed Vital Signs: reviewed and remarkable for no significant abnormalities Differential diagnosis: Differential diagnosis includes etiologies such as sepsis, UTI, pneumonia, metabolic, electrolyte abnormalities, cardiac sources, intracerebral event, toxicologic, neurological, as well as others were entertained. ER treatment provided: See below Diagnostics interpreted by me include EKG and cardiac monitoring as listed below: -Cardiac Monitoring: An order was placed for continuous cardiac monitoring. The monitor shows a rate of 90 with sinus rhythm. -ECG: none -Laboratory studies:Interpreted by me as stated above in MDM and shown below. Imaging studies: Xrays: As interpreted by me: Portable AP upright 1 view of the chest shows no focal infiltrate KUB shows stent in place CTs show: none Consultation(s): As described in [facility] Procedures:none Critical Care: None Past Med/Surg History Medical History (Updated 09/11/22 @ 02:26 by Steve Guajardo DO) Crohns disease NO MEDICATIONS. WELL CONTROLLED WITH DIET. GERD (gastroesophageal reflux disease) CURRENT, NO MEDS Kidney stones Migraine CONTROLLED LATELY Sinus tachycardia OCCASIONAL. USED TO SEE DR DANG. NO PROBLEMS CURRENTLY. Surgical History H/O bilateral breast reduction surgery H/O wrist surgery LEFT History of colonoscopy History of esophagogastroduodenoscopy (EGD) History of hysterectomy MIREYA BSO History of laparoscopy History of lithotripsy Hx of cholecystectomy LAP Family History Uncle Family history of diabetes mellitus Father FHx: prostate cancer Social History Smoking Status: Former smoker Tobacco Type: Cigarettes Second Hand Exposure: No; Do You Dip or Chew Tobacco: No; Hx Alcohol Use: No Hx Substance Use: No Preferred Language: Burkinan Communication Ability: Effective Visual Impairment: No Limitations Diamond Die Maker Required: No Beliefs That Will Affect Care: None Current Living Situation: Family Current Living Situation Comment: Lives at home with aunt Feels Safe at Home: Yes Assistive Devices: None Allergies Allergies Allergy/AdvReac Type Severity Reaction Status Date / Time No Known Allergies Allergy Mild Verified 03/14/20 19:05 Home Meds Home Medications Medication Instructions Recorded Confirmed ondansetron HCl 4 mg tablet 4 - 8 mg PO Q6H PRN NAUSEA/VOMITING 03/14/20 03/14/20 (Zofran) Previous Rx's Medication Instructions Recorded docusate sodium 100 mg capsule 100 mg PO BID #60 caps 03/14/20 (Colace) ondansetron HCl 4 mg tablet 4 mg PO Q6H PRN nausea and 03/14/20 (Zofran) vomiting #6 tabs sennosides 8.6 mg tablet (Senokot) 8.6 mg PO HS #30 tabs 03/14/20 tamsulosin 0.4 mg capsule (Flomax) 0.4 mg PO HS #30 caps 03/14/20 ciprofloxacin HCl 500 mg tablet 500 mg PO BID #14 tabs 09/06/22 (Cipro) oxycodone 5 mg tablet 5 mg PO Q6H PRN pain #14 tabs 09/06/22 phenazopyridine 100 mg tablet 100 mg PO TID #21 tabs 09/06/22 (Pyridium) Results & Data (ED) Vital Signs Vital Signs - 24 hr 09/10/22 22:41 09/10/22 23:58 09/11/22 00:17 Temperature 36.9 C Temperature Source Temporal Artery Scan Pulse Rate 91 H 89 Pulse Rate [Apical] Pulse Rhythm Regular Pulse Strength Normal Respiratory Rate 18 Respiratory Effort / Characteristics Non-Labored Spontaneous Respiratory Depth Normal Respiratory Pattern Regular Blood Pressure 112/82 Blood Pressure [Left Arm] Blood Pressure Mean 92 Blood Pressure Mean [Left Arm] Blood Pressure Position Sitting Pulse Oximetry 96 94 Oxygen Delivery Method Room Air Room Air Sepsis Recent Fever Within 48 Hours Yes Sepsis New/Unexplained Change in Mental Status N/A Sepsis Action Taken by Nursing No Action Required 09/11/22 00:00 Temperature Temperature Source Pulse Rate Pulse Rate [Apical] 83 Pulse Rhythm Pulse Strength Respiratory Rate 18 Respiratory Effort / Characteristics Non-Labored Spontaneous Respiratory Depth Normal Respiratory Pattern Regular Blood Pressure Blood Pressure [Left Arm] 119/83 Blood Pressure Mean Blood Pressure Mean [Left Arm] 95 Blood Pressure Position Pulse Oximetry 92 Oxygen Delivery Method Room Air Sepsis Recent Fever Within 48 Hours Sepsis New/Unexplained Change in Mental Status Sepsis Action Taken by Nursing Laboratory Data 09/10/22 23:10 09/10/22 23:10 Lab Results 09/10/22 09/10/22 09/10/22 Range/Units 23:10 23:10 23:10 WBC 11.04 H (4.8-10.8) K/ul RBC 4.98 (4.20-5.40) M/uL Hgb 14.6 (12.0-16.0) g/dl Hct 42.6 (37.0-47.0) % MCV 85.5 (80.0-100.0) fL MCH 29.3 (25.0-34.0) pg MCHC 34.3 (32.0-36.0) g/dL RDW Std Deviation 43.5 (36.4-46.3) fL RDW Coeff of Tisha 13.9 (11.5-14.5) % Plt Count 426 H (130-400) K/uL MPV 10.0 (9.4-12.4) fL Immature Gran % (Auto) 1.9 % Neut % (Auto) 61.6 % Lymph % (Auto) 26.4 % [place] % (Auto) 7.8 % Eos % (Auto) 1.7 % Baso % (Auto) 0.6 % Neut # (Auto) 6.80 H (1.40-6.50) K/uL Lymph # (Auto) 2.91 (1.2-3.4) K/uL [place] # (Auto) 0.86 H (0.11-0.59) K/uL Eos # (Auto) 0.19 (0-0.50) K/uL Baso # (Auto) 0.07 (0-0.2) K/uL Immature Gran # (Auto) 0.21 H (0.01-0.20) K/uL Sodium 138 (136-145) mmol/L Potassium TNP Chloride 105 (98-107) mmol/L Carbon Dioxide 24 (21-32) mmol/L Anion Gap 9 (3-11) BUN 18 (6-23) mg/dl Creatinine 0.72 (0.6-1.2) mg/dl Est Cr Clr Drug Dosing 110.5 ml/min Est GFR ( Amer) 114.8 ml/min Est GFR (Non-Af Amer) 99.0 ml/min BUN/Creatinine Ratio 25.0 H (10-20) Glucose 105 H (70-99(Fasting)) mg/dl Lactate (0.4-2.0) mmol/L Calcium 9.7 (8.6-10.3) mg/dl Total Bilirubin 0.3 (0.2-1.0) mg/dl AST TNP ALT 19 (7-52) U/L Alkaline Phosphatase 76 (34-104) U/L Total Protein 8.0 (6.0-8.3) gm/dl Albumin 4.1 (3.4-5.0) gm/dl Globulin 3.9 (2.5-4.0) gm/dl Albumin/Globulin Ratio 1.1 (0.9-2) Lipase 25 (11-82) U/L Procalcitonin Urine Color Cancelled Urine Appearance Cancelled Urine pH Cancelled Ur Specific [place] Cancelled Urine Protein Cancelled Urine Glucose (UA) Cancelled Urine Ketones Cancelled Urine Blood Cancelled Urine Nitrite Cancelled Urine Bilirubin Cancelled Urine Urobilinogen Cancelled Ur Leukocyte Esterase Cancelled Urine WBC (Auto) Cancelled Urine RBC (Auto) Cancelled U Hyaline Cast (Auto) Cancelled U Epithel Cells (Auto) Cancelled Urine Bacteria (Auto) Cancelled Ur Renal Epithelial Cell Cancelled Urine Crystals Cancelled Calcium Oxalate Crystal Cancelled Uric Acid Crystals Cancelled Triple Phos Crystals Cancelled Other Crystals Cancelled Amorphous Sediment Cancelled Granular Casts Cancelled Waxy Casts Cancelled RBC Casts Cancelled WBC Casts Cancelled Other Casts Cancelled Urine Mucus Cancelled Urine Other Cancelled Urine Trichomonas Cancelled Urine Yeast Cancelled Urine Sperm Cancelled Ur Oval Fat Bodies Cancelled 09/10/22 09/10/22 09/11/22 Range/Units 23:31 23:52 00:34 WBC (4.8-10.8) K/ul RBC (4.20-5.40) M/uL Hgb (12.0-16.0) g/dl Hct (37.0-47.0) % MCV (80.0-100.0) fL MCH (25.0-34.0) pg MCHC (32.0-36.0) g/dL RDW Std Deviation (36.4-46.3) fL RDW Coeff of Tisha (11.5-14.5) % Plt Count (130-400) K/uL MPV (9.4-12.4) fL Immature Gran % (Auto) % Neut % (Auto) % Lymph % (Auto) % [place] % (Auto) % Eos % (Auto) % Baso % (Auto) % Neut # (Auto) (1.40-6.50) K/uL Lymph # (Auto) (1.2-3.4) K/uL [place] # (Auto) (0.11-0.59) K/uL Eos # (Auto) (0-0.50) K/uL Baso # (Auto) (0-0.2) K/uL Immature Gran # (Auto) (0.01-0.20) K/uL Sodium (136-145) mmol/L Potassium Chloride (98-107) mmol/L Carbon Dioxide (21-32) mmol/L Anion Gap (3-11) BUN (6-23) mg/dl Creatinine (0.6-1.2) mg/dl Est Cr Clr Drug Dosing ml/min Est GFR ( Amer) ml/min Est GFR (Non-Af Amer) ml/min BUN/Creatinine Ratio (10-20) Glucose (70-99(Fasting)) mg/dl Lactate 1.5 (0.4-2.0) mmol/L Calcium (8.6-10.3) mg/dl Total Bilirubin (0.2-1.0) mg/dl AST ALT (7-52) U/L Alkaline Phosphatase (34-104) U/L Total Protein (6.0-8.3) gm/dl Albumin (3.4-5.0) gm/dl Globulin (2.5-4.0) gm/dl Albumin/Globulin Ratio (0.9-2) Lipase (11-82) U/L Procalcitonin Cancelled < 0.05 Urine Color Urine Appearance Urine pH Ur Specific [place] Urine Protein Urine Glucose (UA) Urine Ketones Urine Blood Urine Nitrite Urine Bilirubin Urine Urobilinogen Ur Leukocyte Esterase Urine WBC (Auto) Urine RBC (Auto) U Hyaline Cast (Auto) U Epithel Cells (Auto) Urine Bacteria (Auto) Ur Renal Epithelial Cell Urine Crystals Calcium Oxalate Crystal Uric Acid Crystals Triple Phos Crystals Other Crystals Amorphous Sediment Granular Casts Waxy Casts RBC Casts WBC Casts Other Casts Urine Mucus Urine Other Urine Trichomonas Urine Yeast Urine Sperm Ur Oval Fat Bodies 09/11/22 09/11/22 Range/Units 00:34 00:50 WBC (4.8-10.8) K/ul RBC (4.20-5.40) M/uL Hgb (12.0-16.0) g/dl Hct (37.0-47.0) % MCV (80.0-100.0) fL MCH (25.0-34.0) pg MCHC (32.0-36.0) g/dL RDW Std Deviation (36.4-46.3) fL RDW Coeff of Tisha (11.5-14.5) % Plt Count (130-400) K/uL MPV (9.4-12.4) fL Immature Gran % (Auto) % Neut % (Auto) % Lymph % (Auto) % [place] % (Auto) % Eos % (Auto) % Baso % (Auto) % Neut # (Auto) (1.40-6.50) K/uL Lymph # (Auto) (1.2-3.4) K/uL [place] # (Auto) (0.11-0.59) K/uL Eos # (Auto) (0-0.50) K/uL Baso # (Auto) (0-0.2) K/uL Immature Gran # (Auto) (0.01-0.20) K/uL Sodium (136-145) mmol/L Potassium 4.0 Chloride (98-107) mmol/L Carbon Dioxide (21-32) mmol/L Anion Gap (3-11) BUN (6-23) mg/dl Creatinine (0.6-1.2) mg/dl Est Cr Clr Drug Dosing ml/min Est GFR ( Amer) ml/min Est GFR (Non-Af Amer) ml/min BUN/Creatinine Ratio (10-20) Glucose (70-99(Fasting)) mg/dl Lactate (0.4-2.0) mmol/L Calcium (8.6-10.3) mg/dl Total Bilirubin (0.2-1.0) mg/dl AST 13 ALT (7-52) U/L Alkaline Phosphatase (34-104) U/L Total Protein (6.0-8.3) gm/dl Albumin (3.4-5.0) gm/dl Globulin (2.5-4.0) gm/dl Albumin/Globulin Ratio (0.9-2) Lipase (11-82) U/L Procalcitonin Urine Color [place] Urine Appearance Cloudy A Urine pH 5.0 Ur Specific [place] 1.025 Urine Protein 2+ H Urine Glucose (UA) Negative Urine Ketones Negative Urine Blood 3+ H Urine Nitrite Positive A Urine Bilirubin 1+ H Urine Urobilinogen Negative Ur Leukocyte Esterase 2+ H Urine WBC (Auto) 10-30 H Urine RBC (Auto) >30 H U Hyaline Cast (Auto) 1-5 U Epithel Cells (Auto) >30 H Urine Bacteria (Auto) Negative Ur Renal Epithelial Cell Urine Crystals Calcium Oxalate Crystal Uric Acid Crystals Triple Phos Crystals Other Crystals Amorphous Sediment Granular Casts Waxy Casts RBC Casts WBC Casts Other Casts Urine Mucus Urine Other Urine Trichomonas Urine Yeast Not Reportable Urine Sperm Ur Oval Fat Bodies Administered Medications Discontinued Medications Hydromorphone HCl (Hydromorphone Inj 1 Mg/Ml Syringe) 1 mg IV NOW STA Stop: 09/10/22 23:32 Last Admin: 09/10/22 23:40 Dose: 1 mg Documented By: AN Hydromorphone HCl (Hydromorphone Inj 0.5 Mg/0.5 Ml Syr) 0.5 mg IV NOW STA Stop: 09/11/22 02:02 Last Admin: 09/11/22 02:05 Dose: 0.5 mg Documented By: AN Sodium Chloride (Nss 1000ml) 1,000 mls @ 999 mls/hr IV .Q1H1M STA Stop: 09/10/22 23:56 Last Infusion: 09/11/22 00:47 Dose: 0 mls/hr Documented By: Admin: 09/10/22 23:40 Dose: 999 mls/hr Documented By: AN Ceftriaxone Sodium (Rocephin) 2,000 mg in 70 mls @ 140 mls/hr IV NOW STA Stop: 09/11/22 00:00 Last Infusion: 09/11/22 00:47 Dose: 0 mls/hr Documented By: Admin: 09/10/22 23:54 Dose: 140 mls/hr Documented By: AN Sodium Chloride (Nss 1000ml) 1,000 mls @ 999 mls/hr IV .Q1H1M ONE Stop: 09/11/22 00:34 Last Admin: 09/10/22 23:57 Dose: Not Given Documented By: AN Ketorolac Tromethamine (Ketorolac Tromethamine 15 Mg/Ml Vial) 15 mg IV NOW ONE Stop: 09/10/22 23:32 Last Admin: 09/10/22 23:40 Dose: 15 mg Documented By: AN Ondansetron HCl (Ondansetron Inj 2 Mg/Ml 2 Ml Vial) 4 mg IV NOW STA Stop: 09/10/22 22:57 Last Admin: 09/10/22 23:40 Dose: 4 mg Documented By: AN Discharge Plan Visit Data Chief Complaint: Flank Pain Stated Complaint: FLANK PAIN ED Provider: Steve Guajardo Discharge Problem: Acute left flank pain, Urinary tract infection, Renal colic Forms Stand Alone Forms: [facility] Prescriptions Prescriptions: No Action sennosides [Senokot] 8.6 mg tablet 8.6 mg PO HS Qty: 30 0RF docusate sodium [Colace] 100 mg capsule 100 mg PO BID Qty: 60 0RF ondansetron HCl [Zofran] 4 mg tablet 4 mg PO Q6H PRN (Reason: nausea and vomiting) Qty: 6 0RF tamsulosin [Flomax] 0.4 mg capsule 0.4 mg PO HS Qty: 30 0RF ondansetron HCl [Zofran] 4 mg Tablet 4 - 8 mg PO Q6H PRN (Reason: NAUSEA/VOMITING) phenazopyridine [Pyridium] 100 mg Tablet 100 mg PO TID Qty: 21 0RF ciprofloxacin HCl [Cipro] 500 mg tablet 500 mg PO BID Qty: 14 0RF oxycodone 5 mg tablet 5 mg PO Q6H PRN (Reason: pain) Qty: 14 0RF Referrals Referrals: Mac Allan [Primary Care Provider] -
[2022-09-10 23:42] LABS: Basophils # (auto) 0.07 K/uL (0-0.2); Basophils % (auto) 0.6 %; Eosinophils # (auto) 0.19 K/uL (0-0.50); Eosinophils % (auto) 1.7 %; Hematocrit (blood only) 42.6 % (37.0-47.0); Hemoglobin 14.6 g/dl (12.0-16.0); Immature Granulocytes # (auto) 0.21 K/uL (0.01-0.20); Immature Granulocytes % (auto) 1.9 %; Lymphocytes # (auto) 2.91 K/uL (1.2-3.4); Lymphocytes % (auto) 26.4 %; Mean Corpuscular Hemoglobin 29.3 pg (25.0-34.0); Mean Corpuscular Hgb Conc 34.3 g/dL (32.0-36.0); Mean Corpuscular Volume 85.5 fL (80.0-100.0); Monocytes # (auto) 0.86 K/uL (0.11-0.59); Monocytes % (auto) 7.8 %; Neutrophils % (auto) 61.6 %; Platelet Count 426 K/uL (130-400); RDW Coefficient of Variation 13.9 % (11.5-14.5); RDW Standard Deviation 43.5 fL (36.4-46.3); Red Blood Count 4.98 M/uL (4.20-5.40); White Blood Count 11.04 K/ul (4.8-10.8)
[2022-09-11 00:24] LABS: Alanine Aminotransferase 19 U/L (7-52); Albumin Globulin Ratio 1.1 (0.9-2); Albumin Level 4.1 gm/dl (3.4-5.0); Alkaline Phosphatase 76 U/L (34-104); Anion Gap 9 (3-11); Bilirubin,Total 0.3 mg/dl (0.2-1.0); Blood Urea Nitrogen 18 mg/dl (6-23); Calcium 9.7 mg/dl (8.6-10.3); Carbon Dioxide 24 mmol/L (21-32); Chloride 105 mmol/L (98-107); Creatinine Clr Calc Pharmacy 110.5 ml/min; Est GFR (African American) 114.8 ml/min; Globulin 3.9 gm/dl (2.5-4.0); Glucose 105 mg/dl (70-99(Fasting)); Lipase 25 U/L (11-82); Sodium 138 mmol/L (136-145)
[2022-09-11 01:10] LABS: Appearance Urine Cloudy (Clear); Bacteria Urine Automated Negative (Negative); Blood Urine 3+ (Negative); Color Urine Orange; Epithelial Cell Urine Auto >30 /lpf (0-5); Glucose Urine UA Negative (Negative); Ketones Urine Negative (Negative); Leukocyte Esterase Urine 2+ (Negative); Nitrite Urine Positive (Negative); Protein Urine 2+ (Negative); Specific Gravity Urine 1.025 (1.000-1.030); Urobilinogen Urine Negative (Negative)
[2022-09-11 01:48] LABS: Bilirubin Urine 1+ (Negative)
[2022-09-11 01:56] LABS: RBC Urine Automated >30 /hpf (0-4)
[2022-09-11] MEDS ORDERED: HYDROmorphone INJ 0.5 MG/0.5 ML SYR IV STA (02:01)
--- NOTE | 2022-09-11 02:46 | History & Physical Report ---
Date of Service September 11, 2022 Assessment & Plan (1) Renal colic: Plan: Patient with recent cystoscopy and right ureteral stent placement. Ongoing right flank pain with left flank pain for several days as well. Patient has been on Ciprofloxacin. Has elevated WBC count with neutrophils and bands as well as elevated platelets -Observation to medical -Ceftriaxone 2gm IV daily -Pain control with Toradol and Dilaudid as needed -Zofran as needed -Continue Py -Urology consultation appreciated F/E/N - NSS at 125mL/hr x 2 liters, electrolytes WNL, NPO for now Ppx - low risk for DVT Code - Full per discussion with patient Dispo - Admit to medical History of Present Illness Chief Complaint: left flank pain Primary Care Provider: Mac Allan Tati Bhat is a 47yo female with h/o nephrolithiasis presenting with left flank pain, some ongoing right flank pain as well. Patient was recently admitted to [facility] on 09/03/22 - 09/06/22 after presenting with right flank pain, sepsis and UTI. She was found to have an obstructing stone and E. coli UTI. She had a cystoscopy with right ureteral stent placement on 09/03/22. She was discharged home in stable condition on Cipro. Reports that she has had persistent right sided flank pain since returning home. Over the last couple of days she had left flank pain as well. 10/10 in severity with associated nausea, subjective fevers and chills. She has been taking her medications as prescribed No additional complaints at this time. IN the ER she was given Ceftriaxone, Dilaudid, Toradol, Zofran and NSS Allergies Allergy/AdvReac Type Severity Reaction Status Date / Time No Known Allergies Allergy Mild Verified 09/11/22 02:27 Home Medications Medication Instructions Recorded Confirmed Type acetaminophen 500 mg tablet 1,000 mg PO AMPM 09/11/22 09/11/22 History (Tylenol Extra Strength) ciprofloxacin HCl 500 mg tablet 500 mg PO BID 09/11/22 09/11/22 History ketorolac 30 mg/mL (1 mL) 30 mg IM DIRECTED PRN Migraine 09/11/22 09/11/22 History injection solution Headache metoprolol tartrate 25 mg tablet 12.5 mg PO QPM PRN ..tachycardia 09/11/22 09/11/22 History metoprolol tartrate 25 mg tablet 25 mg PO QAM 09/11/22 09/11/22 History oxycodone 5 mg tablet 5 mg PO Q6 PRN Pain 09/11/22 09/11/22 History phenazopyridine 100 mg tablet 100 mg PO TID PRN .bladder pain 09/11/22 09/11/22 History Past Med/Surg History Medical History Crohns disease NO MEDICATIONS. WELL CONTROLLED WITH DIET. GERD (gastroesophageal reflux disease) CURRENT, NO MEDS Kidney stones Migraine CONTROLLED LATELY Sinus tachycardia OCCASIONAL. USED TO SEE DR DANG. NO PROBLEMS CURRENTLY. Surgical History H/O bilateral breast reduction surgery H/O wrist surgery LEFT History of colonoscopy History of esophagogastroduodenoscopy (EGD) History of hysterectomy MIREYA BSO History of laparoscopy History of lithotripsy Hx of cholecystectomy LAP Family History Uncle Family history of diabetes mellitus Father FHx: prostate cancer Social History Smoking Status: Former smoker Tobacco Type: Cigarettes Second Hand Exposure: No; Do You Dip or Chew Tobacco: No; Hx Alcohol Use: No Hx Substance Use: No Preferred Language: Macedonian Communication Ability: Effective Visual Impairment: No Limitations Juke Box Servicer Required: No Beliefs That Will Affect Care: None Current Living Situation: Family Current Living Situation Comment: Lives at home with aunt Feels Safe at Home: Yes Assistive Devices: None Review of Systems Review of Systems: All systems reviewed & are unremarkable except as noted in HPI & below Physical Exam Physical Exam: General: patient resting comfortably, NAD, non-toxic in appearance, AA&O x 4 Skin: warm, dry, intact, no rashes or lesions HEENT: NC/AT, PERRL, EOMI, anicteric sclera, conjunctiva without injection, external ear normal to inspection and nontender, nares patent, moist mucus membranes, dentition intact, no oropharyngeal lesions, neck supple, trachea midline, no LAD, no thyromegaly, no JVD Heart: +S1/S2, regular, no m/r/g Lungs: equal air entry bilaterally, no rales/rhonchi/wheezes Abd: +BS, soft, NT/ND, no masses/organomegaly/ascites, mild right flank pain, left flank pain as well Ext: warm, 2+ pulses in UE/LE bilaterally, no clubbing/cyanosis or edema Neuro: nonfocal, patient AA&O x 4, speech intact, no facial droop, moving all extremities on command with equal strength 5/5 Results & Data Results & Data Vital Signs (Past 12 Hours) Vital Signs Temp Pulse Pulse Resp BP BP Pulse Ox 09/11/22 02:30 71 16 109/78 94 09/11/22 02:21 75 17 109/74 93 09/11/22 00:00 83 18 119/83 92 09/11/22 00:17 94 09/10/22 23:58 89 09/10/22 22:41 36.9 C 91 H 18 112/82 96 O2 Del Method 09/11/22 02:30 Room Air 09/11/22 02:21 Room Air 09/11/22 00:00 Room Air 09/11/22 00:17 Room Air 09/10/22 23:58 09/10/22 22:41 Room Air Laboratory Results Laboratory Results WBC 11.04 K/ul (4.8-10.8) H 09/10/22 23:10 RBC 4.98 M/uL (4.20-5.40) 09/10/22 23:10 Hgb 14.6 g/dl (12.0-16.0) 09/10/22 23:10 Hct 42.6 % (37.0-47.0) 09/10/22 23:10 MCV 85.5 fL (80.0-100.0) 09/10/22 23:10 MCH 29.3 pg (25.0-34.0) 09/10/22 23:10 MCHC 34.3 g/dL (32.0-36.0) 09/10/22 23:10 RDW Std Deviation 43.5 fL (36.4-46.3) 09/10/22 23:10 RDW Coeff of Tisha 13.9 % (11.5-14.5) 09/10/22 23:10 Plt Count 426 K/uL (130-400) H 09/10/22 23:10 MPV 10.0 fL (9.4-12.4) 09/10/22 23:10 Immature Gran % (Auto) 1.9 % 09/10/22 23:10 Neut % (Auto) 61.6 % 09/10/22 23:10 Lymph % (Auto) 26.4 % 09/10/22 23:10 [place] % (Auto) 7.8 % 09/10/22 23:10 Eos % (Auto) 1.7 % 09/10/22 23:10 Baso % (Auto) 0.6 % 09/10/22 23:10 Neut # (Auto) 6.80 K/uL (1.40-6.50) H 09/10/22 23:10 Lymph # (Auto) 2.91 K/uL (1.2-3.4) 09/10/22 23:10 [place] # (Auto) 0.86 K/uL (0.11-0.59) H 09/10/22 23:10 Eos # (Auto) 0.19 K/uL (0-0.50) 09/10/22 23:10 Baso # (Auto) 0.07 K/uL (0-0.2) 09/10/22 23:10 Immature Gran # (Auto) 0.21 K/uL (0.01-0.20) H 09/10/22 23:10 Sodium 138 mmol/L (136-145) 09/10/22 23:10 Potassium 4.0 mmol/L (3.5-5.1) 09/11/22 00:34 Chloride 105 mmol/L (98-107) 09/10/22 23:10 Carbon Dioxide 24 mmol/L (21-32) 09/10/22 23:10 Anion Gap 9 (3-11) 09/10/22 23:10 BUN 18 mg/dl (6-23) 09/10/22 23:10 Creatinine 0.72 mg/dl (0.6-1.2) 09/10/22 23:10 Est Cr Clr Drug Dosing 110.5 ml/min 09/10/22 23:10 Est GFR ( Amer) 114.8 ml/min 09/10/22 23:10 Est GFR (Non-Af Amer) 99.0 ml/min 09/10/22 23:10 BUN/Creatinine Ratio 25.0 (10-20) H 09/10/22 23:10 Glucose 105 mg/dl (70-99(Fasting)) H 09/10/22 23:10 Lactate 1.5 mmol/L (0.4-2.0) 09/10/22 23:52 Calcium 9.7 mg/dl (8.6-10.3) 09/10/22 23:10 Total Bilirubin 0.3 mg/dl (0.2-1.0) 09/10/22 23:10 AST 13 U/L (13-39) 09/11/22 00:34 ALT 19 U/L (7-52) 09/10/22 23:10 Alkaline Phosphatase 76 U/L (34-104) 09/10/22 23:10 Total Protein 8.0 gm/dl (6.0-8.3) 09/10/22 23:10 Albumin 4.1 gm/dl (3.4-5.0) 09/10/22 23:10 Globulin 3.9 gm/dl (2.5-4.0) 09/10/22 23:10 Albumin/Globulin Ratio 1.1 (0.9-2) 09/10/22 23:10 Lipase 25 U/L (11-82) 09/10/22 23:10 Procalcitonin < 0.05 ng/ml (0-0.5) 09/11/22 00:34 Urine Color [place] 09/11/22 00:50 Urine Appearance Cloudy (Clear) A 09/11/22 00:50 Urine pH 5.0 (4.5-7.5) 09/11/22 00:50 Ur Specific [place] 1.025 (1.000-1.030) 09/11/22 00:50 Urine Protein 2+ (Negative) H 09/11/22 00:50 Urine Glucose (UA) Negative (Negative) 09/11/22 00:50 Urine Ketones Negative (Negative) 09/11/22 00:50 Urine Blood 3+ (Negative) H 09/11/22 00:50 Urine Nitrite Positive (Negative) A 09/11/22 00:50 Urine Bilirubin 1+ (Negative) H 09/11/22 00:50 Urine Urobilinogen Negative (Negative) 09/11/22 00:50 Ur Leukocyte Esterase 2+ (Negative) H 09/11/22 00:50 Urine WBC (Auto) 10-30 /hpf (0-5) H 09/11/22 00:50 Urine RBC (Auto) >30 /hpf (0-4) H 09/11/22 00:50 U Hyaline Cast (Auto) 1-5 /lpf (0-5) 09/11/22 00:50 U Epithel Cells (Auto) >30 /lpf (0-5) H 09/11/22 00:50 Urine Bacteria (Auto) Negative (Negative) 09/11/22 00:50 Ur Renal Epithelial Cell Cancelled 09/10/22 23:10 Urine Crystals Cancelled 09/10/22 23:10 Calcium Oxalate Crystal Cancelled 09/10/22 23:10 Uric Acid Crystals Cancelled 09/10/22 23:10 Triple Phos Crystals Cancelled 09/10/22 23:10 Other Crystals Cancelled 09/10/22 23:10 Amorphous Sediment Cancelled 09/10/22 23:10 Granular Casts Cancelled 09/10/22 23:10 Waxy Casts Cancelled 09/10/22 23:10 RBC Casts Cancelled 09/10/22 23:10 WBC Casts Cancelled 09/10/22 23:10 Other Casts Cancelled 09/10/22 23:10 Urine Mucus Cancelled 09/10/22 23:10 Urine Other Cancelled 09/10/22 23:10 Urine Trichomonas Cancelled 09/10/22 23:10 Urine Yeast Not Reportable 09/11/22 00:50 Urine Sperm Cancelled 09/10/22 23:10 Ur Oval Fat Bodies Cancelled 09/10/22 23:10 SARS-CoV-2, RNA, NAAT NEGATIVE (NEGATIVE) 09/11/22 02:08 PG Care Time/CCT Total # of Minutes Spent Total Time Spent with Patient: Total time spent is greater than 50% in coordination of care (as documented) at patient's floor/unit and/or counseling patient: Coding Level of Care Code 32098 INT INP/OBS CARE 2/55MIN Diagnoses Renal colic N23
[2022-09-11] MEDS ORDERED: POLYETHYLENE (MIRALAX) 17 GM PACK PO PRN (03:46)
[2022-09-11] MEDS ORDERED: HYDROmorphone INJ 0.5 MG/0.5 ML SYR IV PRN ×3 (03:46→10:13)
[2022-09-11] MEDS ORDERED: ONDANSETRON INJ 2 MG/ML 2 ML VIAL IV PRN (03:46)
[2022-09-11] MEDS: SODIUM CHLORIDE 0.9% 1000ML 1,000 ML IV SCH ×2 (04:08→13:07)
[2022-09-11] MEDS: KETOROLAC TROMETHAMINE 15 MG/ML VIAL IV PRN (07:34)
--- NOTE | 2022-09-11 07:40 | XRay Report ---
XR chest 1V portable HISTORY: fever COMPARISON: Chest 09/05/2022. FINDINGS: There are low lung volumes. Right basilar linear densities have improved. This favors resol ving subsegmental atelectasis. Otherwise, lungs are clear. No evidence for pulmonary edema. The cardi ac silhouette remains mildly enlarged. This may be due to the low lung volumes. IMPRESSION: Improvement in the bibasilar linear densities suggesting resolving subsegmental atelectasis. ACT 112: Negative or not required by law. Electronically signed by: Derrick Velázquez M.D. 09/11/2022 7:39 AM
--- NOTE | 2022-09-11 07:42 | XRay Report ---
KUB HISTORY: Left-sided flank pain. fever COMPARISON: Abdomen and pelvis CT 09/03/2022. FINDINGS: The bowel gas pattern is unremarkable. There are no dilated loops of small bowel to suggest an obstruction. A right ureteral stent appears in good position. No ureteral calculi identified. St able left-sided nephrolithiasis with the largest stone within the lower pole measuring 4 mm. No defin ite right renal calculi. Prior cholecystectomy.. No pneumoperitoneum or pneumatosis. IMPRESSION: 1. Stable left-sided nephrolithiasis. 2. No ureteral calculi identified. 3. A right ureteral stent appears in good position. ACT 112: Negative or not required by law. Electronically signed by: Derrick Velázquez M.D. 09/11/2022 7:41 AM
[2022-09-11] MEDS: METOPROLOL TARTRATE 25 MG TAB PO SCH (09:43)
[2022-09-11] MEDS: ACETAMINOPHEN 500 MG TAB PO SCH ×2 (09:45→20:02)
--- NOTE | 2022-09-11 09:57 | Urology Consultation ---
Date of Consultation September 11, 2022 Assessment & Plan (1) Acute left flank pain: (2) Sepsis: (3) Urinary tract infection: (4) Nephrolithiasis: 47-year-old female with history of bilateral nephrolithiasis recently status post right ureteral stent placement for an obstructing right ureteral calculus and UTI admitted for bilateral flank pain. Patient is afebrile with stable vitals. No new labs at present. Continues to have bilateral flank discomfort. Urine and blood cultures are pending. Continue broad-spectrum antibiotics and narrow per sensitivity data when available. KUB shows right ureteral stent in good position, left nephrolithiasis noted but no definite left ureteral calculi. Recommend CT abdomen pelvis for further evaluation of left flank discomfort - rule out left ureteral calculus. Suspect poorly tolerating stent on the right. CT imaging ordered as above to further assess bilaterally. Discussed possible left ureteral stone versus ascending infection vs other. CT A/P independently reviewed and shows left nephrolithiasis, no left ureteral calculi or left hydronephrosis. Right ureteral stent in good position, significant improvement in right hydronephrosis, mild residual collecting system dilatation, 4 mm right UPJ calculus. Small right renal calculi. No acute intervention warranted at this time - okay for patient to resume diet today. Recommend continue IV antibiotics and supportive care. Recommend Tamsulosin, Pyridium, oxybutynin, Ketorolac and analgesia as needed for stent discomfort. will follow peripherally. History of Present Illness Attending Physician: Gonzalez Phipps MD History of Present Illness This is a 39-year-old female with history of nephrolithiasis presenting with bilateral flank pain. Patient was recently admitted to [facility] on 09/03/2022 - 09/06/22 after presenting with right flank pain, UTI and suspected sepsis. She was found to have an obstructing right ureteral stone and E. coli UTI. She is status post cystoscopy with right ureteral stent placement on 09/03/2022. She was discharged to home on 09/06/2022 with course of Ciprofloxacin. She reports persistent right flank pain since returning home and subsequently developed left flank pain as well with associated nausea and subjective fever and chills. On arrival, she was afebrile with stable vitals. Lab work showed WBC 11.04, hemoglobin 14.6, creatinine 0.72. Creatinine 0.72. Lactate 1.5. Urinalysis notable for 2+ protein, 3+ blood, positive nitrates, 2+ LE, 10-30 WBC, >30 RBC, >30 epithelial cells and negative for bacteria. KUB showed stable left-sided nephrolithiasis, no ureteral calculi identified. Right ureteral stent appears in good position. ED course: Ceftriaxone, Dilaudid, Toradol, Zofran and IV fluids. Patient seen and examined at bedside this morning. She is awake and resting in bed, no apparent distress. Reports ongoing bilateral flank discomfort. Voiding spontaneously, reports orange urine. Denies nausea, vomiting, fever or chills at present time. She is currently NPO. Allergies Allergy/AdvReac Type Severity Reaction Status Date / Time No Known Allergies Allergy Mild Verified 09/11/22 02:27 Home Medications Medication Instructions Recorded Confirmed Type acetaminophen 500 mg tablet 1,000 mg PO AMPM 09/11/22 09/11/22 History (Tylenol Extra Strength) ciprofloxacin HCl 500 mg tablet 500 mg PO BID 09/11/22 09/11/22 History ketorolac 30 mg/mL (1 mL) 30 mg IM DIRECTED PRN Migraine 09/11/22 09/11/22 History injection solution Headache metoprolol tartrate 25 mg tablet 12.5 mg PO QPM PRN ..tachycardia 09/11/22 09/11/22 History metoprolol tartrate 25 mg tablet 25 mg PO QAM 09/11/22 09/11/22 History oxycodone 5 mg tablet 5 mg PO Q6 PRN Pain 09/11/22 09/11/22 History phenazopyridine 100 mg tablet 100 mg PO TID PRN .bladder pain 09/11/22 09/11/22 History Patient History Medical History Crohns disease NO MEDICATIONS. WELL CONTROLLED WITH DIET. GERD (gastroesophageal reflux disease) CURRENT, NO MEDS Kidney stones Migraine CONTROLLED LATELY Sinus tachycardia OCCASIONAL. USED TO SEE DR DANG. NO PROBLEMS CURRENTLY. Surgical History H/O bilateral breast reduction surgery H/O wrist surgery LEFT History of colonoscopy History of esophagogastroduodenoscopy (EGD) History of hysterectomy MIREYA BSO History of laparoscopy History of lithotripsy Hx of cholecystectomy LAP Family History Uncle Family history of diabetes mellitus Father FHx: prostate cancer Social History Smoking Status: Never smoker Tobacco Type: Cigarettes Second Hand Exposure: No; Do You Dip or Chew Tobacco: No; Hx Alcohol Use: No Hx Substance Use: No Preferred Language: Malagasy Communication Ability: Effective Visual Impairment: No Limitations 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 Beliefs That Will Affect Care: None Current Living Situation: Family Current Living Situation Comment: Lives at home with aunt Feels Safe at Home: Yes Assistive Devices: None Review of Systems Review of Systems: All systems reviewed & are unremarkable except as noted in HPI & below Physical Exam Physical Exam: General: well-appearing, no acute distress HEENT: Normocephalic, mucous membranes moist Pulmonary: Nonlabored respirations Abdomen: Nondistended, nontender Extremities: Moves all 4 spontaneously Neuro: No gross deficits Psych: alert and oriented, normal mood Skin: Warm, dry, no rashes noted : mild tenderness to palpation on bilateral flanks Results & Data Vital Signs (Past 12 Hours) Vital Signs Temp Pulse Pulse Resp BP BP Pulse Ox 09/11/22 09:43 69 99/66 L 09/11/22 07:53 36.7 C 70 18 113/74 94 09/11/22 03:45 36.6 C 76 16 116/78 95 09/11/22 02:30 71 16 109/78 94 09/11/22 02:21 75 17 109/74 93 09/11/22 00:00 83 18 119/83 92 09/11/22 00:17 94 09/10/22 23:58 89 09/10/22 22:41 36.9 C 91 H 18 112/82 96 O2 Del Method 09/11/22 09:43 09/11/22 07:53 Room Air 09/11/22 03:45 Room Air 09/11/22 02:30 Room Air 09/11/22 02:21 Room Air 09/11/22 00:00 Room Air 09/11/22 00:17 Room Air 09/10/22 23:58 09/10/22 22:41 Room Air PG Care Time/CCT Total # of Minutes Spent Total Time Spent with Patient: Total time spent is greater than 50% in coordination of care (as documented) at patient's floor/unit and/or counseling patient: Coding Level of Care Code 94179 IN/OBS CONSULT LVL 3,45M Diagnoses Acute left flank pain R10.9 Sepsis A41.9 Urinary tract infection N39.0 Nephrolithiasis N20.0 Time Spent (min) 45
[2022-09-11] MEDS: HYDROmorphone INJ 0.5 MG/0.5 ML SYR IV PRN ×2 (11:12→19:34)
--- NOTE | 2022-09-11 11:21 | CT Scan Report ---
CT OF THE ABDOMEN AND PELVIS WITHOUT CONTRAST CLINICAL HISTORY: left flank pain, r/o ureteral stone COMPARISON STUDY: CT of the abdomen and pelvis September 03, 2022 and KUB performed earlier today. TECHNIQUE: Axial images of the abdomen and pelvis were obtained without IV contrast. Images were revi ewed in the axial, sagittal, and coronal planes. Automated exposure control was utilized for the mindy dy. A dose lowering technique was utilized adhering to the principles of ALARA FINDINGS: Subpleural opacities within the lower lungs favor atelectasis. A right ureteral stent is in place. Right hydronephrosis has improved. There is mild residual collecting system dilatation. A 4 m m right ureteropelvic injection calculus is present. There are no additional ureteral calculi. A few small right renal calculi measure up to 3 mm. Left renal calculi measure up to 5 mm. There are no lef t ureteral calculi. There is no left hydronephrosis. A 9 mm lesion within the upper pole of the left kidney likely reflects a hyperdense cyst when correlating with prior contrast enhanced CT. There is n o biliary ductal dilatation status post cholecystectomy. Liver, spleen, adrenal glands and pancreas a re unremarkable. The appendix is normal. There is no evidence for a bowel obstruction. No lymphadenop athy. No acute fractures are identified. IMPRESSION: 1. Left nephrolithiasis. No left ureteral calculi or left hydronephrosis. 2. Right ureteral stent placement. Significant improvement in right hydronephrosis. Mild residual col lecting system dilatation. 4 mm right ureteropelvic junction calculus. Small right renal calculi. ACT 112: Negative or not required by law. Electronically signed by: Don Campos M.D. 09/11/2022 11:20 AM
--- NOTE | 2022-09-11 12:13 | Hospitalist Progress Note ---
Date of Service September 11, 2022 Assessment & Plan (1) Renal colic: Plan: Recently hospitalized with right ureter stent placement. She has recurrent symptoms. Urology consultation pending. Pain control measures. IV fluids. Patient has been on Ciprofloxacin for E. coli UTI diagnosed on her most recent admission. (2) Urinary tract infection: Plan: E. coli isolated on her most recent admission. She has been taking Cipro orally. She is now on intravenous Rocephin Plan Eventual discharge to home Admission and Anticipated Discharge Date Admission Date: September 11, 2022 Subjective Alert and oriented. No acute distress. Urology consultation pending. She currently is on Rocephin. E. coli was isolated in the urine dating to September 03. She was readmitted with recurrent renal colic. We will start diet if no procedure today per urology Review of Systems Review of Systems: Constitutional-no fever or chills ENT-no blurred vision, no double vision, no epistaxis, no sore throat Respiratory-no cough, no wheezing, no shortness of breath Cardiac-no palpitations, no chest pain, no syncope GI-no nausea, vomiting, diarrhea, melena, hematochezia -no urinary retention, no urinary incontinence, no hematuria. Recurrent right flank pain Musculoskeletal-no joint pain, no muscle tenderness Skin-no bruising, no rashes, no pruritus Neuro-no isolated weakness, no paresthesia, no weakness Psych-no depression, no anxiety Physical Exam Physical Exam: General-alert and oriented x3, no fevers, no chills HEENT-head atraumatic and normocephalic, pupils equal and reactive to light, extraocular muscles intact Neck-no lymphadenopathy or thyromegaly, trachea midline Chest-clear to auscultation percussion. No rales wheezing or rhonchi Cardiac-regular rate and rhythm, normal S1 and S2 Abdomen-normal bowel sounds, nontender, no hepatosplenomegaly Extremities-no cyanosis, clubbing, or edema Neuro-cranial nerves II through XII intact, motor and sensory function within normal limits, strength symmetrical , no focal deficits Psych-normal affect, normal mood Results & Data Results & Data Vital Signs (Past 12 Hours) Vital Signs Temp Pulse Resp BP Pulse Ox O2 Del Method 09/11/22 09:43 69 99/66 L 09/11/22 07:53 36.7 C 70 18 113/74 94 Room Air 09/11/22 03:45 36.6 C 76 16 116/78 95 Room Air 09/11/22 02:30 71 16 109/78 94 Room Air 09/11/22 02:21 75 17 109/74 93 Room Air 09/11/22 00:17 94 Room Air Laboratory Results 09/10/22 23:10 09/11/22 00:34 PG Care Time/CCT Total # of Minutes Spent Total Time Spent with Patient: Total time spent is greater than 50% in coordination of care (as documented) at patient's floor/unit and/or counseling patient: Coding Level of Care Code 89413 SUB INP/OBS CARE 3/50MIN Diagnoses Renal colic N23 Urinary tract infection N39.0
[2022-09-11] MEDS ORDERED: oxyCODONE HCL IR 5 MG TAB (IMMEDIATE RELEASE) PO PRN (18:07)
[2022-09-11] MEDS: PHENAZOPYRIDINE HCL 100 MG TAB PO PRN (20:02)
[2022-09-11] MEDS ORDERED: cefTRIAXone SODIUM 2,000 MG in DEXTROSE 5% 50 ML IV SCH (22:00)
[2022-09-12] MEDS: HYDROmorphone INJ 0.5 MG/0.5 ML SYR IV PRN (00:02)
[2022-09-12] MEDS ORDERED: HYDROmorphone INJ 2 MG/ML SYR/VIAL IV PRN (01:06)
[2022-09-12] MEDS ORDERED: HYDROmorphone INJ 1 MG/ML SYRINGE IV PRN (01:06)
[2022-09-12] MEDS: KETOROLAC TROMETHAMINE 15 MG/ML VIAL IV PRN (02:50)
[2022-09-12 06:19] LABS: Calcium 8.4 mg/dl (8.6-10.3); Creatinine Clr Calc Pharmacy 133.5 ml/min; Est GFR (African American) 124.9 ml/min; Est GFR (Non-African American) 107.8 ml/min; Potassium 4.3 mmol/L (3.5-5.1)
[2022-09-12 06:46] LABS: Hematocrit (blood only) 35.4 % (37.0-47.0); Hemoglobin 11.4 g/dl (12.0-16.0); Mean Corpuscular Hemoglobin 27.9 pg (25.0-34.0); Mean Corpuscular Hgb Conc 32.2 g/dL (32.0-36.0); Mean Corpuscular Volume 86.6 fL (80.0-100.0); Mean Platelet Volume 9.9 fL (9.4-12.4); Platelet Count 300 K/uL (130-400); RDW Coefficient of Variation 13.6 % (11.5-14.5); RDW Standard Deviation 42.8 fL (36.4-46.3); Red Blood Count 4.09 M/uL (4.20-5.40); White Blood Count 7.12 K/ul (4.8-10.8)
[2022-09-12] MEDS: ACETAMINOPHEN 500 MG TAB PO SCH (08:16)
[2022-09-12] MEDS: PHENAZOPYRIDINE HCL 100 MG TAB PO PRN (08:16)
[2022-09-12] MEDS: METOPROLOL TARTRATE 25 MG TAB PO SCH (08:16)
[2022-09-12] MEDS: HYDROmorphone HCL 2 MG TAB PO PRN ×2 (10:19→13:49)
--- NOTE | 2022-09-12 12:32 | Hospitalist Progress Note ---
Date of Service September 12, 2022 Assessment & Plan (1) Renal colic: Plan: Recently hospitalized with right ureter stent placement. She has recurrent symptoms. Urology has evaluated, no surgical indications for now Pain control measures. IV fluids. Patient has been on Ciprofloxacin for E. coli UTI diagnosed on her most recent admission. In preparation for discharge, will start weaning her IV pain meds Change Dilaudid to PO 2mg Q3hr, maintain Toradol (that seems to work the best), continue Tylenol, stop norco (2) Urinary tract infection: Plan: E. coli isolated on her most recent admission. She has been taking Cipro orally. She is now on intravenous Rocephin Plan Eventual discharge to home when we can wean down her IV pain meds Admission and Anticipated Discharge Date Admission Date: September 11, 2022 Subjective patient seen and examined, said pain control is still sub optimal, says oxycontin does not help Review of Systems Review of Systems: All systems reviewed are negative, apart from the ones contained in the history. Results & Data Results & Data Vital Signs (Past 12 Hours) Vital Signs Temp Pulse Resp BP Pulse Ox O2 Del Method 09/12/22 07:41 97.9 F 72 16 104/67 93 Room Air PG Care Time/CCT Total # of Minutes Spent Total Time Spent with Patient: Total time spent is greater than 50% in coordination of care (as documented) at patient's floor/unit and/or counseling patient: Coding Level of Care Code 90317 SUB INP/OBS CARE 2/35MIN Diagnoses Renal colic N23 Urinary tract infection N39.0 Time Spent (min) 35
--- NOTE | 2022-09-12 13:02 | Discharge Summary ---
Date of Service September 12, 2022 Admission HPI Per Admitting Provider Tati Bhat is a 47yo female with h/o nephrolithiasis presenting with left flank pain, some ongoing right flank pain as well. Patient was recently admitted to [facility] on 09/03/22 - 09/06/22 after presenting with right flank pain, sepsis and UTI. She was found to have an obstructing stone and E. coli UTI. She had a cystoscopy with right ureteral stent placement on 09/03/22. She was discharged home in stable condition on Cipro. Reports that she has had persistent right sided flank pain since returning home. Over the last couple of days she had left flank pain as well. 12/19 in severity with associated nausea, subjective fevers and chills. She has been taking her medications as prescribed No additional complaints at this time. IN the ER she was given Ceftriaxone, Dilaudid, Toradol, Zofran and NSS Principal Diagnosis renal colic Discharge Exam The patient is awake, alert and oriented 3, well developed and well nourished, normocephalic and atraumatic, lying in bed and in no acute distress. HEENT--PERRL, EOMI, mucous membranes and oropharynx mildly dry Neck--supple. No JVD. No bruits. Thyroid normal, trachea midline, no adenopathy. Heart--normal S1 and S2. No murmurs, rubs or gallops. Lungs--clear bilaterally, no respiratory distress, no accessory muscle use. Abdomen--normal bowel sounds and soft. Mild epigastric and left sided abdominal pain Extremities--no cyanosis or clubbing. No edema. Dermatologic--normal skin turgor, normal color, no abnormal lymph nodes, no rash. Neurologic--cranial nerves II through XII grossly intact. Rheumatologic--normal range of motion. Psychiatric--normal affect. Discharge Data Allergies Allergy/AdvReac Type Severity Reaction Status Date / Time No Known Allergies Allergy Mild Verified 09/11/22 02:27 Consultations 09/11/22 02:10 ED Decision to Admit Stat 09/11/22 02:45 Consult Urology Routine Ordered Studies 09/11/22 09:54 CT abd pelvis wo con Stat Hospital Course (1) Renal colic: Recently hospitalized with right ureter stent placement. She has recurrent symptoms. Urology has evaluated, no surgical indications for now Pain control measures. IV fluids. Patient has been on Ciprofloxacin for E. coli UTI diagnosed on her most recent admission. In preparation for discharge, will start weaning her IV pain meds Change Dilaudid to PO 2mg Q3hr, maintain Toradol (that seems to work the best), continue Tylenol, stop norco Patient took one dose of PO Dilaudid and siad it controlled her pain, she said she wanted to be discharged Will d/c her on PO Dilaudid 2mg Q4hrs PRN (2) Urinary tract infection: E. coli isolated on her most recent admission. She has been taking Cipro orally. She is now on intravenous Rocephin Plan Eventual discharge to home when we can wean down her IV pain meds Total Time Total Time Spent Total Time Spent (In Minutes): 35 Discharge Plan Discharge Items Patient Disposition: Home - Self-Care Reason For Visit: LEFT FLANK PAIN Discharge Diagnosis: renal colic Activity: Resume your previous activity Non-emergency contact: Primary Care Provider and Urologist Call non-emergency contact if: you have any medication questions and your symptoms worsen Follow-up/Referrals: Mac Allan [Primary Care Provider] - Diet: Regular Addtl Attending Provider Instructions: please make appointment to follow up with your urologist Pending Studies at Discharge: No Stand-Alone Forms: My [employer], Smoking Cessation Medications and DC Order Prescriptions: Continued ciprofloxacin HCl 500 mg tablet 500 mg PO BID acetaminophen [Tylenol Extra Strength] 500 mg Tablet 1,000 mg PO AMPM phenazopyridine 100 mg tablet 100 mg PO TID PRN (Reason: .bladder pain) oxycodone 5 mg tablet 5 mg PO Q6 PRN (Reason: Pain) metoprolol tartrate 25 mg tablet 25 mg PO QAM metoprolol tartrate 25 mg tablet 12.5 mg PO QPM PRN (Reason: ..tachycardia) ketorolac 30 mg/mL (1 mL) Solution 30 mg IM DIRECTED PRN (Reason: Migraine Headache) Discharge Orders: Discharge Order (Routine); Ordered 09/12/22 Ordered By: Breanne Edmondson Admission Data Admit Date/Time: 09/11/22 02:45 Attending Provider: Breanne Edmondson Admit Provider: Sabine Luo Primary Care Provider: Mac Allan Other Providers: Otis La ; Sabine Luo Coding Level of Care Code 29624 INP/OBS DISCH >30 MIN Diagnoses Renal colic N23 Urinary tract infection N39.0 Time Spent (min) 35
== END 2022-09-12 14:43 | disposition home or self-care (01) ==
LOC: ED 22:37 → 3W 22:37 → SUATTDRO 09-11 02:45 → 3W 09-11 03:25

== ENCOUNTER 2022-09-29 07:18 | Observation (INO) ==
[2022-09-29] MEDS ORDERED: ONDANSETRON INJ 2 MG/ML 2 ML VIAL IV STA (07:23)
[2022-09-29] MEDS ORDERED: SODIUM CHLORIDE 0.9% 1000ML 1,000 ML IV STA (07:23)
--- NOTE | 2022-09-29 07:37 | Emergency Department Note ---
Impression & Plan Intractable abdominal pain, Nephrolithiasis, Flank pain, Urinary tract infection, Hydronephrosis with renal and ureteral calculous obstruction ED Provider Note NAME: DEANDRE CARRIZALES AGE: 47 SEX: F : 1975 ARRIVES VIA: Walk-In INFORMANT: Patient, ED PROVIDER(S): Jeremy Mackey DO CHIEF COMPLAINT: Flank pain HPI: The patient is a 47-year-old female who presented to the emergency department for an evaluation of flank pain. The patient was diagnosed with a proximal ureteral calculus causing hydronephrosis at the beginning of the month. This was complicated by severe pain. She has had multiple visits to the emergency department for this. She was treated by urology and had a stent placed at the beginning of the month. She is continued to have flank pain. She has been using her pain medication at home with only minimal relief. She also notices bladder spasm and flank pain. She was placed on Pyridium and continues to take this medication. She denies having any fever but does note nausea and vomiting. She states the pain is moderate to severe despite her pain medication. She called urology and was referred to the emergency department for further evaluation. ROS: See above HPI for pertinent positives & negatives. A total of 10 systems reviewed and were otherwise negative. PAST MEDICAL HISTORY: See Below PAST SURGICAL HISTORY: See Below FAMILY HISTORY: See Below SOCIAL HISTORY: See Below HOME MEDICATIONS: See Below ALLERGIES: See Below VITALS: See Below PHYSICAL EXAMINATION: GENERAL: Patient is awake alert in no acute distress patient is resting comfortably and showing no signs of anxiety EYES: The conjunctivae are clear. The pupils are round and reactive. EARS, NOSE, MOUTH AND THROAT: The nose is without any evidence of any deformity. Mucous membranes are moist. Tongue is midline. NECK: The neck is nontender and supple. RESPIRATORY: Normal respiratory effort is noted there is no evidence of wheezing rhonchi or rales CARDIOVASCULAR: Regular rate and rhythm noted there no murmurs rubs or gallops normal S1 normal S2. GASTROINTESTINAL: The abdomen is soft. There is right upper quadrant tenderness to palpation which was moderate. BACK: Bilateral CVA tenderness was noted to percussion right greater than left. MUSCULOSKELETAL/EXTREMITIES: There is no evidence of gross deformity full range of motion is noted in the hips and shoulders. SKIN: There is no obvious evidence of any rash. There are no petechiae, pallor or cyanosis noted. NEUROLOGIC: Patient is awake alert and oriented x3 strength is symmetric patellar reflexes are 2+ bilaterally MEDICAL DECISION MAKING: The patient is a 47-year-old female who presented to the emergency department for an evaluation of flank pain. The patient has been diagnosed with a proximal ureteral calculus with hydronephrosis. She was initially diagnosed at the beginning of the month. She had a stent placed and did have some resolution of her hydronephrosis but her pain continues. She presented to the emergency department because of ongoing pain. I discussed the patient's laboratory and radiographic studies with her. She was treated with IV pain medication in the emergency department. She was also treated with IV antibiotics for presumed urinary tract infection. The patient was reevaluated and continued to have severe pain. I discussed her condition with the on-call urology group. The patient was evaluated in the emergency department by urology. Given her degree of pain I will discuss her condition with the on-call hospitalist as well. She may require further inpatient management and treatment. Triage Nursing notes reviewed. Prior medical records reviewed Vital Signs: reviewed and remarkable for no significant abnormalities Differential diagnosis: Renal colic, UTI, appendicitis, diverticulitis, mesenteric ischemia, aortic pathology, infections, inflammatory bowel disease, PUD, biliary pathology, as well as other pathologies. ER treatment provided: See below Diagnostics interpreted by me: ECG: none Cardiac Monitoring: An order was placed for continuous cardiac monitoring. The monitor shows a rate of 78 bpm with sinus rhythm. Laboratory studies: As stated above and show below. Imaging studies: See below. Radiographic imaging was reviewed by myself Consultation(s): I discussed this case with Patti who is on-call for the urology group. I discussd this case with Dr Hernández who is on for the [facility] hospitalist group Past Med/Surg History Medical History Asthma Crohns disease NO MEDICATIONS. WELL CONTROLLED WITH DIET. GERD (gastroesophageal reflux disease) CURRENT, NO MEDS Kidney stones Migraine CONTROLLED LATELY Sinus tachycardia does not follow w/ cardio, controlled w/ metoprolol Surgical History H/O bilateral breast reduction surgery H/O wrist surgery LEFT History of colonoscopy History of esophagogastroduodenoscopy (EGD) History of hysterectomy MIREYA BSO History of laparoscopy History of lithotripsy Hx of cholecystectomy LAP Hx of cystoscopy Family History Uncle Family history of diabetes mellitus Father FHx: prostate cancer Esophageal cancer Brother Hypertension Mother Cervical cancer Social History Smoking Status: Never smoker Tobacco Type: Cigarettes Cigarettes Per Day: quit 16 yrs ago; Second Hand Exposure: No; Do You Dip or Chew Tobacco: No; Hx Alcohol Use: No Hx Substance Use: No Preferred Language: Jordanian Communication Ability: Effective Visual Impairment: No Limitations [employer] Required: No Beliefs That Will Affect Care: None marital status: Current Living Situation: Family Current Living Situation Comment: Lives at home with aunt 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 Feels Safe at Home: Yes Assistive Devices: None Allergies Allergies Allergy/AdvReac Type Severity Reaction Status Date / Time No Known Allergies Allergy Mild Verified 09/26/22 11:04 Home Meds Home Medications Medication Instructions Recorded Confirmed acetaminophen 500 mg tablet 1,000 mg PO AMPM 09/11/22 09/29/22 (Tylenol Extra Strength) ketorolac 30 mg/mL (1 mL) 30 mg IM DIRECTED PRN Migraine 09/11/22 09/29/22 injection solution Headache metoprolol tartrate 25 mg tablet 12.5 mg PO QPM PRN ..tachycardia 09/11/22 09/29/22 metoprolol tartrate 25 mg tablet 25 mg PO QAM 09/11/22 09/29/22 albuterol sulfate 90 mcg/actuation 1 puff inhalation QID PRN 09/26/22 09/29/22 aerosol inhaler Shortness Of Breath Or Wheezing amoxicillin 500 mg-potassium 0 tab PO Q12H 09/29/22 09/29/22 clavulanate 125 mg tablet Previous Rx's Medication Instructions Recorded oxybutynin chloride 5 mg tablet 5 mg PO BID PRN bladder spasms #30 09/13/22 tabs phenazopyridine 100 mg tablet 100 mg PO TID PRN .bladder pain 09/13/22 #14 tabs Results & Data (ED) Vital Signs Vital Signs - 24 hr 09/29/22 07:21 09/29/22 07:53 09/29/22 07:56 Temperature 36.9 C Temperature Source Oral Pulse Rate 98 H 90 Pulse Rate [Right Finger] 90 Pulse Rate from SpO2 Sensor Pulse Rhythm Regular Regular Pulse Rhythm [Right Finger] Regular Pulse Strength Normal Pulse Strength [Right Finger] Normal Respiratory Rate 18 17 17 Respiratory Effort / Characteristics Non-Labored Respiratory Depth Normal Respiratory Pattern Regular Blood Pressure 120/78 Blood Pressure [Right Arm] 133/105 H Blood Pressure Mean 92 Blood Pressure Mean [Right Arm] 114 Blood Pressure Position Sitting Blood Pressure Position [Right Arm] Semi-fowlers Pulse Oximetry 97 94 95 Oxygen Delivery Method Room Air Room Air Room Air Sepsis Recent Fever Within 48 Hours No Sepsis New/Unexplained Change in Mental Status No Sepsis Action Taken by Nursing No Action Required 09/29/22 08:01 09/29/22 07:59 09/29/22 08:00 Temperature Temperature Source Pulse Rate 96 H 90 89 Pulse Rate [Right Finger] Pulse Rate from SpO2 Sensor Pulse Rhythm Pulse Rhythm [Right Finger] Pulse Strength Pulse Strength [Right Finger] Respiratory Rate 16 Respiratory Effort / Characteristics Respiratory Depth Respiratory Pattern Blood Pressure 123/82 Blood Pressure [Right Arm] Blood Pressure Mean 88 Blood Pressure Mean [Right Arm] Blood Pressure Position Blood Pressure Position [Right Arm] Pulse Oximetry Oxygen Delivery Method Sepsis Recent Fever Within 48 Hours Sepsis New/Unexplained Change in Mental Status Sepsis Action Taken by Nursing 09/29/22 08:43 09/29/22 09:00 09/29/22 09:00 Temperature Temperature Source Pulse Rate 88 78 Pulse Rate [Right Finger] Pulse Rate from SpO2 Sensor 87 Pulse Rhythm Pulse Rhythm [Right Finger] Pulse Strength Pulse Strength [Right Finger] Respiratory Rate 17 15 Respiratory Effort / Characteristics Respiratory Depth Respiratory Pattern Blood Pressure 121/78 118/69 Blood Pressure [Right Arm] Blood Pressure Mean 92 76 Blood Pressure Mean [Right Arm] Blood Pressure Position Blood Pressure Position [Right Arm] Pulse Oximetry 96 Oxygen Delivery Method Sepsis Recent Fever Within 48 Hours Sepsis New/Unexplained Change in Mental Status Sepsis Action Taken by Nursing 09/29/22 11:00 Temperature 36.6 C Temperature Source Oral Pulse Rate Pulse Rate [Right Finger] 64 Pulse Rate from SpO2 Sensor Pulse Rhythm Pulse Rhythm [Right Finger] Regular Pulse Strength Pulse Strength [Right Finger] Normal Respiratory Rate 17 Respiratory Effort / Characteristics Non-Labored Respiratory Depth Normal Respiratory Pattern Regular Blood Pressure Blood Pressure [Right Arm] 124/64 Blood Pressure Mean Blood Pressure Mean [Right Arm] 84 Blood Pressure Position Blood Pressure Position [Right Arm] Semi-fowlers Pulse Oximetry 96 Oxygen Delivery Method Room Air Sepsis Recent Fever Within 48 Hours Sepsis New/Unexplained Change in Mental Status Sepsis Action Taken by Longterm Medications Current Medication List: was personally reviewed by me Laboratory Data Attestation: I reviewed the patient's lab results. 09/29/22 07:45 09/29/22 07:45 Lab Results 09/29/22 09/29/22 09/29/22 Range/Units 07:45 07:45 08:03 WBC 6.58 (4.8-10.8) K/ul RBC 4.92 (4.20-5.40) M/uL Hgb 13.6 (12.0-16.0) g/dl Hct 41.5 (37.0-47.0) % MCV 84.3 (80.0-100.0) fL MCH 27.6 (25.0-34.0) pg MCHC 32.8 (32.0-36.0) g/dL RDW Std Deviation 42.8 (36.4-46.3) fL RDW Coeff of Tisha 13.9 (11.5-14.5) % Plt Count 322 (130-400) K/uL MPV 10.4 (9.4-12.4) fL Immature Gran % (Auto) 0.6 % Neut % (Auto) 52.5 % Lymph % (Auto) 33.1 % Jennings % (Auto) 10.3 % Eos % (Auto) 2.7 % Baso % (Auto) 0.8 % Neut # (Auto) 3.45 (1.40-6.50) K/uL Lymph # (Auto) 2.18 (1.2-3.4) K/uL Jennings # (Auto) 0.68 H (0.11-0.59) K/uL Eos # (Auto) 0.18 (0-0.50) K/uL Baso # (Auto) 0.05 (0-0.2) K/uL Immature Gran # (Auto) 0.04 (0.01-0.20) K/uL Sodium 137 (136-145) mmol/L Potassium 3.8 (3.5-5.1) mmol/L Chloride 104 (98-107) mmol/L Carbon Dioxide 25 (21-32) mmol/L Anion Gap 8 (3-11) BUN 11 (6-23) mg/dl Creatinine 0.68 (0.6-1.2) mg/dl Est Cr Clr Drug Dosing 119.9 ml/min Est GFR ( Amer) 119.9 ml/min Est GFR (Non-Af Amer) 103.4 ml/min BUN/Creatinine Ratio 16.2 (10-20) Glucose 108 H (70-99(Fasting)) mg/dl Calcium 10.0 (8.6-10.3) mg/dl Total Bilirubin 0.5 (0.2-1.0) mg/dl AST 14 (13-39) U/L ALT 16 (7-52) U/L Alkaline Phosphatase 80 (34-104) U/L Total Protein 7.1 (6.0-8.3) gm/dl Albumin 4.0 (3.4-5.0) gm/dl Globulin 3.1 (2.5-4.0) gm/dl Albumin/Globulin Ratio 1.3 (0.9-2) Lipase 18 (11-82) U/L Urine Color Urine Appearance (Clear) Urine pH (4.5-7.5) Ur Specific [place] (1.000-1.030) Urine Protein (Negative) Urine Glucose (UA) (Negative) Urine Ketones (Negative) Urine Blood (Negative) Urine Nitrite (Negative) Urine Bilirubin (Negative) Urine Urobilinogen (Negative) Ur Leukocyte Esterase (Negative) Urine WBC (Auto) (0-5) /hpf Urine RBC (Auto) (0-4) /hpf U Hyaline Cast (Auto) (0-5) /lpf U Epithel Cells (Auto) (0-5) /lpf Urine Bacteria (Auto) (Negative) SARS-CoV-2, RNA, NAAT NEGATIVE (NEGATIVE) 09/29/22 Range/Units 10:01 WBC (4.8-10.8) K/ul RBC (4.20-5.40) M/uL Hgb (12.0-16.0) g/dl Hct (37.0-47.0) % MCV (80.0-100.0) fL MCH (25.0-34.0) pg MCHC (32.0-36.0) g/dL RDW Std Deviation (36.4-46.3) fL RDW Coeff of Tisha (11.5-14.5) % Plt Count (130-400) K/uL MPV (9.4-12.4) fL Immature Gran % (Auto) % Neut % (Auto) % Lymph % (Auto) % [place] % (Auto) % Eos % (Auto) % Baso % (Auto) % Neut # (Auto) (1.40-6.50) K/uL Lymph # (Auto) (1.2-3.4) K/uL Jennings # (Auto) (0.11-0.59) K/uL Eos # (Auto) (0-0.50) K/uL Baso # (Auto) (0-0.2) K/uL Immature Gran # (Auto) (0.01-0.20) K/uL Sodium (136-145) mmol/L Potassium (3.5-5.1) mmol/L Chloride (98-107) mmol/L Carbon Dioxide (21-32) mmol/L Anion Gap (3-11) BUN (6-23) mg/dl Creatinine (0.6-1.2) mg/dl Est Cr Clr Drug Dosing ml/min Est GFR ( Amer) ml/min Est GFR (Non-Af Amer) ml/min BUN/Creatinine Ratio (10-20) Glucose (70-99(Fasting)) mg/dl Calcium (8.6-10.3) mg/dl Total Bilirubin (0.2-1.0) mg/dl AST (13-39) U/L ALT (7-52) U/L Alkaline Phosphatase (34-104) U/L Total Protein (6.0-8.3) gm/dl Albumin (3.4-5.0) gm/dl Globulin (2.5-4.0) gm/dl Albumin/Globulin Ratio (0.9-2) Lipase (11-82) U/L Urine Color Dark Yellow Urine Appearance Cloudy A (Clear) Urine pH 5.5 (4.5-7.5) Ur Specific [place] 1.021 (1.000-1.030) Urine Protein 2+ H (Negative) Urine Glucose (UA) Negative (Negative) Urine Ketones Negative (Negative) Urine Blood 3+ H (Negative) Urine Nitrite Positive A (Negative) Urine Bilirubin Negative (Negative) Urine Urobilinogen Negative (Negative) Ur Leukocyte Esterase 2+ H (Negative) Urine WBC (Auto) >30 H (0-5) /hpf Urine RBC (Auto) >30 H (0-4) /hpf U Hyaline Cast (Auto) 5-10 H (0-5) /lpf U Epithel Cells (Auto) 20-30 H (0-5) /lpf Urine Bacteria (Auto) Negative (Negative) SARS-CoV-2, RNA, NAAT (NEGATIVE) Administered Medications Hydromorphone HCl (Hydromorphone Inj 0.5 Mg/0.5 Ml Syr) 0.5 mg IV Q15M PRN PRN Reason: Pain Stop: 10/13/22 07:22 Last Admin: 09/29/22 10:43 Dose: 0.5 mg Documented By: Admin: 09/29/22 09:39 Dose: 0.5 mg Documented By: Admin: 09/29/22 08:40 Dose: 0.5 mg Documented By: Admin: 09/29/22 08:00 Dose: 0.5 mg Documented By: Admin: 09/29/22 07:46 Dose: 0.5 mg Documented By: BECCA Discontinued Medications Sodium Chloride (Nss 1000ml) 1,000 mls @ 999 mls/hr IV .Q1H1M STA Stop: 09/29/22 08:23 Last Infusion: 09/29/22 08:26 Dose: 0 mls/hr Documented By: Admin: 09/29/22 07:46 Dose: 999 mls/hr Documented By: BECCA Sodium Chloride (Nss 1000ml) 1,000 mls @ 999 mls/hr IV .Q1H1M ONE Stop: 09/29/22 11:05 Last Infusion: 09/29/22 11:57 Dose: 0 mls/hr Documented By: Admin: 09/29/22 10:43 Dose: 999 mls/hr Documented By: BECCA Ceftriaxone Sodium (Rocephin) 2,000 mg in 70 mls @ 140 mls/hr IV NOW STA Stop: 09/29/22 11:39 Last Infusion: 09/29/22 11:57 Dose: 0 mls/hr Documented By: Admin: 09/29/22 11:29 Dose: 140 mls/hr Documented By: BECCA Ketorolac Tromethamine (Ketorolac Tromethamine 15 Mg/Ml Vial) 10 mg IV NOW ONE Stop: 09/29/22 11:11 Last Admin: 09/29/22 11:29 Dose: 10 mg Documented By: BECCA Ondansetron HCl (Ondansetron Inj 2 Mg/Ml 2 Ml Vial) 4 mg IV NOW STA Stop: 09/29/22 07:24 Last Admin: 09/29/22 07:46 Dose: 4 mg Documented By: BECCA Imaging Data Attestation: I personally reviewed and interpreted this imaging study as follows: My Impression: KUB was obtained in the emergency department. My interpretation is appropriate placement of the right ureteral stent, final report below. Radiologist's Impression: KUB X-Ray 09/29/22 07:23 KUB CLINICAL HISTORY: recent stent COMPARISON STUDY: CT of the abdomen and pelvis September 11, 2022. Renal ultrasound performed earlier today. FINDINGS: Right ureteral stent remains in place. A few small bilateral renal calculi measure up to 5 mm. Possible 3 mm right renal pelvis calculus is noted. There is also a possible 3 mm right ureteropelvic junction calculus. Pelvic calcifications represents phleboliths. Bowel gas pattern is normal. IMPRESSION: 1. Right ureteral stent in place. Possible small right renal pelvis and right ur eteropelvic junction calculi/fragments. 2. Small bilateral renal calculi. ACT 112: Negative or not required by law. Electronically signed by: Don Campos M.D. 09/29/2022 8:45 AM Renal Ultrasound 09/29/22 07:33 ULTRASOUND KIDNEYS AND BLADDER CLINICAL HISTORY: Right flank pain. Ureteral stent. COMPARISON STUDY: Abdominal CT dated 09/11/2022. TECHNIQUE: Real-time, grayscale, and color flow sonography of the kidneys and bladder is performed. Images are reviewed in the transverse and longitudinal planes. FINDINGS: Kidneys: The kidneys are normal in size and echotexture. The right kidney measures 11.8 cm in length and the left kidney measures 11.0 cm in length. A r ight urethral stent is in place. There is [id number] right hydronephrosis. No hydronephrosis is seen on the left. A 6 Shadowing calculus is noted in the left lower pole. There is no sonographic evidence of contour deforming renal mass lesion. No perinephric fluid is identified. Bladder: The bladder is largely decompressed and contains the distal end of a right ureteral stent. Only the left ureteral jet was seen. IMPRESSION: 1. The kidneys are normal in size. 2. A right ureteral stent is in place and there is [id number] right hydronephrosis. 3. There is no left-sided hydronephrosis. 4. Left-sided nephrolithiasis. 5. The bladder is decompressed. Only the left ureteral jet was seen. ACT 112: Negative or not required by law. Electronically signed by: Jon Rock M.D. 09/29/2022 8:37 AM Discharge Plan Visit Data Chief Complaint: Kidney Stone Stated Complaint: KIDNEY STONE ED Provider: Jeremy Mackey Discharge Problem: Intractable abdominal pain, Nephrolithiasis, Flank pain, Urinary tract infection, Hydronephrosis with renal and ureteral calculous obstruction Patient Disposition: Being Evaluated by Hospitalist Forms Stand Alone Forms: [facility] [employer] Prescriptions Prescriptions: No Action phenazopyridine 100 mg tablet 100 mg PO TID PRN (Reason: .bladder pain) Qty: 14 1RF oxybutynin chloride 5 mg tablet 5 mg PO BID PRN (Reason: bladder spasms) Qty: 30 1RF albuterol sulfate 90 mcg/actuation Hfa Aerosol Inhaler 1 puff INHALATION QID PRN (Reason: Shortness Of Breath Or Wheezing) amoxicillin-pot clavulanate 500-125 mg tablet 0 tab PO Q12H Rx Instructions: hasnt started yet. Told pt to start sunday acetaminophen [Tylenol Extra Strength] 500 mg Tablet 1,000 mg PO AMPM metoprolol tartrate 25 mg tablet 25 mg PO QAM metoprolol tartrate 25 mg tablet 12.5 mg PO QPM PRN (Reason: ..tachycardia) ketorolac 30 mg/mL (1 mL) Solution 30 mg IM DIRECTED PRN (Reason: Migraine Headache) Referrals Referrals: Mac Allan [Primary Care Provider] -
[2022-09-29] MEDS: HYDROmorphone INJ 0.5 MG/0.5 ML SYR IV PRN ×7 (07:46→12:38)
[2022-09-29 08:16] LABS: Basophils # (auto) 0.05 K/uL (0-0.2); Basophils % (auto) 0.8 %; Eosinophils # (auto) 0.18 K/uL (0-0.50); Eosinophils % (auto) 2.7 %; Hematocrit (blood only) 41.5 % (37.0-47.0); Hemoglobin 13.6 g/dl (12.0-16.0); Immature Granulocytes # (auto) 0.04 K/uL (0.01-0.20); Immature Granulocytes % (auto) 0.6 %; Lymphocytes # (auto) 2.18 K/uL (1.2-3.4); Lymphocytes % (auto) 33.1 %; Mean Corpuscular Hemoglobin 27.6 pg (25.0-34.0); Mean Corpuscular Hgb Conc 32.8 g/dL (32.0-36.0); Mean Corpuscular Volume 84.3 fL (80.0-100.0); Mean Platelet Volume 10.4 fL (9.4-12.4); Monocytes # (auto) 0.68 K/uL (0.11-0.59); Monocytes % (auto) 10.3 %; Neutrophils # (auto) 3.45 K/uL (1.40-6.50); Neutrophils % (auto) 52.5 %; Platelet Count 322 K/uL (130-400); RDW Coefficient of Variation 13.9 % (11.5-14.5); RDW Standard Deviation 42.8 fL (36.4-46.3); Red Blood Count 4.92 M/uL (4.20-5.40); White Blood Count 6.58 K/ul (4.8-10.8)
[2022-09-29 08:30] LABS: Albumin Globulin Ratio 1.3 (0.9-2); BUN Creatinine Ratio 16.2 (10-20); Bilirubin,Total 0.5 mg/dl (0.2-1.0); Creatinine Clr Calc Pharmacy 119.9 ml/min; Est GFR (African American) 119.9 ml/min; Est GFR (Non-African American) 103.4 ml/min; Globulin 3.1 gm/dl (2.5-4.0); Potassium 3.8 mmol/L (3.5-5.1); Total Protein 7.1 gm/dl (6.0-8.3)
--- NOTE | 2022-09-29 08:39 | Ultrasound Report ---
ULTRASOUND KIDNEYS AND BLADDER CLINICAL HISTORY: Right flank pain. Ureteral stent. COMPARISON STUDY: Abdominal CT dated 09/11/2022. TECHNIQUE: Real-time, grayscale, and color flow sonography of the kidneys and bladder is performed. I mages are reviewed in the transverse and longitudinal planes. FINDINGS: Kidneys: The kidneys are normal in size and echotexture. The right kidney measures 11.8 cm in length and the left kidney measures 11.0 cm in length. A right urethral stent is in place. There is mild-to- moderate right hydronephrosis. No hydronephrosis is seen on the left. A 6 Shadowing calculus is noted in the left lower pole. There is no sonographic evidence of contour defor raphael renal mass lesion. No perinephric fluid is identified. Bladder: The bladder is largely decompressed and contains the distal end of a right ureteral stent. O nly the left ureteral jet was seen. IMPRESSION: 1. The kidneys are normal in size. 2. A right ureteral stent is in place and there is [id number] right hydronephrosis. 3. There is no left-sided hydronephrosis. 4. Left-sided nephrolithiasis. 5. The bladder is decompressed. Only the left ureteral jet was seen. ACT 112: Negative or not required by law. Electronically signed by: Jon Rock M.D. 09/29/2022 8:37 AM
--- NOTE | 2022-09-29 08:47 | XRay Report ---
KUB CLINICAL HISTORY: recent stent COMPARISON STUDY: CT of the abdomen and pelvis September 11, 2022. Renal ultrasound performed earlier toda y. FINDINGS: Right ureteral stent remains in place. A few small bilateral renal calculi measure up to 5 mm. Possible 3 mm right renal pelvis calculus is noted. There is also a possible 3 mm right ureterope lvic junction calculus. Pelvic calcifications represents phleboliths. Bowel gas pattern is normal. IMPRESSION: 1. Right ureteral stent in place. Possible small right renal pelvis and right ureteropelvic junction calculi/fragments. 2. Small bilateral renal calculi. ACT 112: Negative or not required by law. Electronically signed by: Don Campos M.D. 09/29/2022 8:45 AM
[2022-09-29] MEDS ORDERED: SODIUM CHLORIDE 0.9% 1000ML 1,000 ML IV ONE (10:05)
[2022-09-29 10:16] LABS: Appearance Urine Cloudy (Clear); Bacteria Urine Automated Negative (Negative); Bilirubin Urine Negative (Negative); Blood Urine 3+ (Negative); Color Urine Dark Yellow; Epithelial Cell Urine Auto 20-30 /lpf (0-5); Glucose Urine UA Negative (Negative); Ketones Urine Negative (Negative); Leukocyte Esterase Urine 2+ (Negative); Nitrite Urine Positive (Negative); Protein Urine 2+ (Negative); RBC Urine Automated >30 /hpf (0-4); Specific Gravity Urine 1.021 (1.000-1.030); Urobilinogen Urine Negative (Negative); WBC Urine Automated >30 /hpf (0-5); pH Urine 5.5 (4.5-7.5)
[2022-09-29] MEDS ORDERED: KETOROLAC TROMETHAMINE 15 MG/ML VIAL IV ONE (11:10)
[2022-09-29] MEDS ORDERED: cefTRIAXone SODIUM 2,000 MG/70 ML BAG IV STA (11:10)
--- NOTE | 2022-09-29 11:20 | Urology Consultation ---
Date of Consultation September 29, 2022 Assessment & Plan (1) Nephrolithiasis: (2) S/P ureteral stent placement: (3) Flank pain: Plan 47-year-old female with history of obstructing right ureteral stone and UTI s/p right ureteral stent on 09/03/22 who presented to the emergency department today with intractable right flank pain. Patient afebrile with stable vitals Labs reviewedcreatinine 0.68, no leukocytosis Urinalysis notable for 2+ protein, 3+ blood, positive nitrates, 2+ leukocyte esterases, >30 WBC, >30 RBC, 20-30 epithelials, negative for bacteria Urine culture pending Recommend initiate empiric antibiotics and follow cultures Imaging reviewed and right ureteral stent appears in good position Patient poorly tolerating ureteral stent No urgent surgical intervention required at this time She is scheduled for outpatient surgery on 10/05 - will plan to keep as scheduled If pain is unable to be controlled for discharge to home, then may need to be admitted for pain control Case discussed with ER attending physician Recommend prn Pyridium, oxybutynin, prn analgesia - can add Ketorolac to regimen for stent management Continue antibiotics and supportive care will follow peripherally Case discussed with my attending physician. History of Present Illness Reason for Consultation: Right flank pain History of Present Illness 47-year-old female with history of obstructing right ureteral stone and UTI s/p right ureteral stent on 09/03/22 who presented to the emergency department today with intractable right flank pain. On arrival to ED, she was afebrile and hemodynamically stable. Lab work independently reviewed and creatinine 0.68, WBC 6.58, hemoglobin 13.6. Urinalysis notable for 2+ protein, 3+ blood, positive nitrates, 2+ leukocyte esterases, >30 WBC, >30 RBC, 20-30 epithelials, negative for bacteria. Urine culture pending. KUB showed right ureteral stent in position, possible small right renal pelvis and right UPJ calculi; small bilateral renal calculi. Renal ultrasound showed a right ureteral stent in place with mild to moderate right hydronephrosis, no left hydronephrosis, left nephrolithiasis, bladder decompressed. ED course: IV fluids, hydromorphone, ceftriaxone, ketorolac and ondansetron. Urology consulted for left flank pain. She is known to our service for nephrolithiasis. Of note, she was admitted at [facility] 09/10 - 09/12 for renal colic. Patient seen and examined in the emergency department. She is awake and resting in litter, no acute distress. Reports some improvement in right flank pain since arrival. Right flank pain currently rated 6 out of 10. She has been utilizing Pyridium, Ditropan and prn Dilaudid at home without relief. She had worsening pain this morning prompting ER presentation. She is voiding spontaneously, notes some bladder discomfort. No significant dysuria. No hematuria at present. Reports intermittent nausea. No fever or chills. She is scheduled for outpatient stone treatment with Dr. Ricketts on 10/05. Allergies Allergy/AdvReac Type Severity Reaction Status Date / Time No Known Allergies Allergy Mild Verified 09/26/22 11:04 Home Medications Medication Instructions Recorded Confirmed Type acetaminophen 500 mg tablet 1,000 mg PO AMPM 09/11/22 09/29/22 History (Tylenol Extra Strength) ketorolac 30 mg/mL (1 mL) 30 mg IM DIRECTED PRN Migraine 09/11/22 09/29/22 History injection solution Headache metoprolol tartrate 25 mg tablet 12.5 mg PO QPM PRN ..tachycardia 09/11/22 09/29/22 History metoprolol tartrate 25 mg tablet 25 mg PO QAM 09/11/22 09/29/22 History oxybutynin chloride 5 mg tablet 5 mg PO BID PRN bladder spasms #30 09/13/22 09/29/22 Rx tabs phenazopyridine 100 mg tablet 100 mg PO TID PRN .bladder pain 09/13/22 09/29/22 Rx #14 tabs albuterol sulfate 90 mcg/actuation 1 puff inhalation QID PRN 09/26/22 09/29/22 History aerosol inhaler Shortness Of Breath Or Wheezing amoxicillin 500 mg-potassium 0 tab PO Q12H 09/29/22 09/29/22 History clavulanate 125 mg tablet Patient History Medical History Asthma Crohns disease NO MEDICATIONS. WELL CONTROLLED WITH DIET. GERD (gastroesophageal reflux disease) CURRENT, NO MEDS Kidney stones Migraine CONTROLLED LATELY Sinus tachycardia does not follow w/ cardio, controlled w/ metoprolol Surgical History H/O bilateral breast reduction surgery H/O wrist surgery LEFT History of colonoscopy History of esophagogastroduodenoscopy (EGD) History of hysterectomy MIREYA BSO History of laparoscopy History of lithotripsy Hx of cholecystectomy LAP Hx of cystoscopy Family History Uncle Family history of diabetes mellitus Father FHx: prostate cancer Esophageal cancer Brother Hypertension Mother Cervical cancer Social History Smoking Status: Never smoker Tobacco Type: Cigarettes Cigarettes Per Day: quit 16 yrs ago; Second Hand Exposure: No; Do You Dip or Chew Tobacco: No; Hx Alcohol Use: No Hx Substance Use: No Preferred Language: Armenian Communication Ability: Effective Visual Impairment: No Limitations Evidence Technician Required: No Beliefs That Will Affect Care: None marital status: Current Living Situation: Family Current Living Situation Comment: Lives at home with aunt 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 Feels Safe at Home: Yes Assistive Devices: None Review of Systems Review of Systems: All systems reviewed & are unremarkable except as noted in HPI & below Physical Exam Constitutional: well developed and well nourished; no acute distress and not ill appearing Eyes: no scleral abnormality Neck: normal visual inspection Respiratory: normal respiratory effort and able to speak in complete sentences; no respiratory distress and no labored breathing Cardiovascular: Extremities: no pedal edema Gastrointestinal (Abdomen): Inspection/Auscultation: abdomen normal to inspection; abdomen not distended Percussion/Palpation: abdomen soft; abdomen nontender and no guarding Musculoskeletal: Head/Neck/Chest: normocephalic and head atraumatic Skin: no visible skin rashes Neurologic: moves all extremities and awake Psychiatric: Orientation: alert and oriented x 3 tearful at times during exam Genitourinary: + CVA tenderness (mild tenderness to palpation over right flank) Results & Data Vital Signs (Past 12 Hours) Vital Signs Temp Pulse Pulse Resp BP BP Pulse Ox 09/29/22 09:00 78 15 09/29/22 09:00 118/69 09/29/22 08:43 88 17 121/78 96 09/29/22 08:00 89 123/82 09/29/22 07:59 90 16 09/29/22 08:01 96 H 09/29/22 07:56 90 17 133/105 H 95 09/29/22 07:53 90 17 94 09/29/22 07:21 36.9 C 98 H 18 120/78 97 O2 Del Method 09/29/22 09:00 09/29/22 09:00 09/29/22 08:43 09/29/22 08:00 09/29/22 07:59 09/29/22 08:01 09/29/22 07:56 Room Air 09/29/22 07:53 Room Air 09/29/22 07:21 Room Air PG Care Time/CCT Total # of Minutes Spent Total Time Spent with Patient: Total time spent is greater than 50% in coordination of care (as documented) at patient's floor/unit and/or counseling patient: Coding Level of Care Code 53647 IN/OBS CONSULT LVL 3,45M Diagnoses Nephrolithiasis N20.0 S/P ureteral stent placement Z96.0 Flank pain R10.9
--- NOTE | 2022-09-29 11:52 | History & Physical Report ---
Date of Service September 29, 2022 Assessment & Plan (1) S/P ureteral stent placement: (2) Nephrolithiasis: (3) Flank pain: (4) Urinary tract infection: Plan Tati Bhat is a 47 year-old female with history of nephrolithiasis who presented to the ED with uncontrolled right flank pain (s/p r sided stent). R Sided Stent, Nephrolithiasis -Pain not under control, had received Dilaudid PO as outpatient but now out of her prescription and remains in significant pain -Urology consulted, no current plan for urology surgical intervention as patient has outpatient procedure scheduled for 10/05 -Recommended Pyridium, oxybutynin, analgesia and Ketorolac -No current plan for surgical intervention -Analgesia: Tyelnol, Ketorolac, Dilaudid -Urine culture pending, UA with protein, blood, leukocyte esterase, nitrites. +Dysuria. Afebrile, WBC within normal limits -Continue Ceftriaxone 2g daily VTE Prophylaxis: Low risk Diet: Clear liquid, NPO at midnight. LR @ 125mL/h x2 bags Code Status: Full Code Dispo: Med-surg History of Present Illness Primary Care Provider: Mac Allan Tati Bhat is a 47 year-old female with h/o nephrolithiasis who presented to the ED with right sided flank pain. Has been admitted on two separate occasions in the past month for similar symptoms, had right sided stent placed on 09/03- has been in pain since then. Has scheduled outpatient procedure to remove old stent/place new stent and remove stone on 10/05 but patient doesn't feel she can wait that long. Notes pain on both left and right sides (more pain on right), lots of bladder pressure and burning with urination. Denies fever/body aches/chills, shortness of breath or chest pain. Notes nausea when pain is at its worst, denies constipation or diarrhea. Allergies Allergy/AdvReac Type Severity Reaction Status Date / Time No Known Allergies Allergy Mild Verified 09/26/22 11:04 Home Medications Medication Instructions Recorded Confirmed Type acetaminophen 500 mg tablet 1,000 mg PO AMPM 09/11/22 09/29/22 History (Tylenol Extra Strength) ketorolac 30 mg/mL (1 mL) 30 mg IM DIRECTED PRN Migraine 09/11/22 09/29/22 History injection solution Headache metoprolol tartrate 25 mg tablet 12.5 mg PO QPM PRN ..tachycardia 09/11/22 09/29/22 History metoprolol tartrate 25 mg tablet 25 mg PO QAM 09/11/22 09/29/22 History oxybutynin chloride 5 mg tablet 5 mg PO BID PRN bladder spasms #30 09/13/22 09/29/22 Rx tabs phenazopyridine 100 mg tablet 100 mg PO TID PRN .bladder pain 09/13/22 09/29/22 Rx #14 tabs albuterol sulfate 90 mcg/actuation 1 puff inhalation QID PRN 09/26/22 09/29/22 History aerosol inhaler Shortness Of Breath Or Wheezing amoxicillin 500 mg-potassium 0 tab PO Q12H 09/29/22 09/29/22 History clavulanate 125 mg tablet Past Med/Surg History Medical History Asthma Crohns disease NO MEDICATIONS. WELL CONTROLLED WITH DIET. GERD (gastroesophageal reflux disease) CURRENT, NO MEDS Kidney stones Migraine CONTROLLED LATELY Sinus tachycardia does not follow w/ cardio, controlled w/ metoprolol Surgical History H/O bilateral breast reduction surgery H/O wrist surgery LEFT History of colonoscopy History of esophagogastroduodenoscopy (EGD) History of hysterectomy MIREYA BSO History of laparoscopy History of lithotripsy Hx of cholecystectomy LAP Hx of cystoscopy Family History Uncle Family history of diabetes mellitus Father FHx: prostate cancer Esophageal cancer Brother Hypertension Mother Cervical cancer Social History Smoking Status: Former smoker Tobacco Type: Cigarettes Cigarettes Per Day: quit 16 yrs ago; Second Hand Exposure: No; Do You Dip or Chew Tobacco: No; Tobacco Cessation Education Requested by Patient: No Hx Alcohol Use: No Hx Substance Use: No Preferred Language: Luxembourgish Communication Ability: Effective Visual Impairment: No Limitations Truck Bracer Required: No Beliefs That Will Affect Care: None marital status: Current Living Situation: Other Current Living Situation Comment: lives with aunt 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 Moist mucous membranes Respiratory: normal respiratory effort, lungs clear to auscultation Cardiovascular: RRR, no murmur, no edema Gastrointestinal (Abdomen): Abdomen soft, nondistended. Notes suprapubic tenderness Musculoskeletal: +CVA tenderness R>L Skin: no rashes, warm and dry Neurologic: no focal motor deficits Psychiatric: A+Ox3, euthymic affect Results & Data Results & Data Vital Signs (Past 12 Hours) Vital Signs Temp Pulse Pulse Resp BP BP Pulse Ox 09/29/22 11:00 36.6 C 64 17 124/64 96 09/29/22 09:00 78 15 09/29/22 09:00 118/69 09/29/22 08:43 88 17 121/78 96 09/29/22 08:00 89 123/82 09/29/22 07:59 90 16 09/29/22 08:01 96 H 09/29/22 07:56 90 17 133/105 H 95 09/29/22 07:53 90 17 94 09/29/22 07:21 36.9 C 98 H 18 120/78 97 O2 Del Method 09/29/22 11:00 Room Air 09/29/22 09:00 09/29/22 09:00 09/29/22 08:43 09/29/22 08:00 09/29/22 07:59 09/29/22 08:01 09/29/22 07:56 Room Air 09/29/22 07:53 Room Air 09/29/22 07:21 Room Air Diagnostic Findings KUB X-Ray 09/29/22 07:23 KUB CLINICAL HISTORY: recent stent COMPARISON STUDY: CT of the abdomen and pelvis September 11, 2022. Renal ultrasound performed earlier today. FINDINGS: Right ureteral stent remains in place. A few small bilateral renal calculi measure up to 5 mm. Possible 3 mm right renal pelvis calculus is noted. There is also a possible 3 mm right ureteropelvic junction calculus. Pelvic calcifications represents phleboliths. Bowel gas pattern is normal. IMPRESSION: 1. Right ureteral stent in place. Possible small right renal pelvis and right ureteropelvic junction calculi/fragments. 2. Small bilateral renal calculi. ACT 112: Negative or not required by law. Electronically signed by: Don Campos M.D. 09/29/2022 8:45 AM Renal Ultrasound 09/29/22 07:33 ULTRASOUND KIDNEYS AND BLADDER CLINICAL HISTORY: Right flank pain. Ureteral stent. COMPARISON STUDY: Abdominal CT dated 09/11/2022. TECHNIQUE: Real-time, grayscale, and color flow sonography of the kidneys and bladder is performed. Images are reviewed in the transverse and longitudinal planes. FINDINGS: Kidneys: The kidneys are normal in size and echotexture. The right kidney measures 11.8 cm in length and the left kidney measures 11.0 cm in length. A right urethral stent is in place. There is [id number] right hydronephrosis. No hydronephrosis is seen on the left. A 6 Shadowing calculus is noted in the left lower pole. There is no sonographic evidence of contour deforming renal mass lesion. No perinephric fluid is identified. Bladder: The bladder is largely decompressed and contains the distal end of a right ureteral stent. Only the left ureteral jet was seen. IMPRESSION: 1. The kidneys are normal in size. 2. A right ureteral stent is in place and there is [id number] right hydronephrosis. 3. There is no left-sided hydronephrosis. 4. Left-sided nephrolithiasis. 5. The bladder is decompressed. Only the left ureteral jet was seen. ACT 112: Negative or not required by law. Electronically signed by: Jon Rock M.D. 09/29/2022 8:37 AM Supervising Physician Co-Signing Physician Notes Patient seen and examined, chart reviewed, case discussed with Michelle Quiroz, and I agree with the assessment and plan as above except as otherwise noted above. General: A&Ox3. NAD. Cooperative. HEENT: Atraumatic, normocephalic. Pulm: Symmetrical chest rise. No increase work of breathing. No respiratory distress. Abdominal: Nontender, nondistended, soft. BS present. All labs and images reviewed 47-year-old female with history of obstructing right ureteral stone and UTI s/p right ureteral stent on 09/03/22 who presented to the emergency department today with intractable right flank pain. From CT earlier in month know 4 mm right ureteropelvic injection, few small right renal calculi measure up to 3 mm, Left renal calculi measure up to 5 mm.[place] improved post stent. Pt reports has had continued severe pain. Was improved on oral dilaudid which she took 1-2 per day but has run out of these and was told additional narcotics would not be refilled. At bedside reports her pain continues to be inadequately controlled. Additional has signs of UTI with indwelling stent. Abd is soft/nontender. UA suspicious for infection. She has had increasing small volume voids with burning 'like glass.' Will tx for UTI, follow UC cultures. No plans to move up basket retreaval of stone per urology at this time, if able to tx infection and convert to orals and control pain will likely be d/c with followup for scheduled intervention on 10/05. Continue tylenol first line, toradol second line. Hydromorphone initially used in ER for pain control, pt improved and comfortable at bedside --> dose reduced. Continue AZO. Resident Activity Tracking Resident Involvement: Resident Care Provided Care Provided: Adult [facility] Medicine
[2022-09-29] MEDS ORDERED: KETOROLAC TROMETHAMINE 15 MG/ML VIAL IV PRN (12:35)
[2022-09-29] MEDS ORDERED: HYDROmorphone INJ 1 MG/ML SYRINGE IV PRN (12:38)
[2022-09-29] MEDS ORDERED: HYDROmorphone INJ 0.5 MG/0.5 ML SYR IV PRN (12:38)
[2022-09-29] MEDS ORDERED: LACTATED RINGER'S 1,000 ML IV SCH (12:45)
[2022-09-29] MEDS: PLASMA-LYTE A 1,000 ML IV SCH ×2 (12:56→20:50)
[2022-09-29] MEDS ORDERED: PHENAZOPYRIDINE HCL 100 MG TAB PO PRN (14:55)
[2022-09-29] MEDS ORDERED: METOPROLOL TARTRATE 25 MG TAB PO PRN (14:55)
[2022-09-29] MEDS: oxyBUTYnin chloride 5 MG TAB PO PRN (17:27)
[2022-09-30] MEDS: ACETAMINOPHEN 325 MG TAB PO PRN ×3 (00:36→10:54)
[2022-09-30] MEDS: KETOROLAC TROMETHAMINE 15 MG/ML VIAL IV PRN ×4 (00:36→19:09)
[2022-09-30] MEDS: HYDROmorphone INJ 0.5 MG/0.5 ML SYR IV PRN ×4 (01:10→20:03)
[2022-09-30 07:38] LABS: Basophils # (auto) 0.04 K/uL (0-0.2); Basophils % (auto) 0.7 %; Eosinophils # (auto) 0.19 K/uL (0-0.50); Eosinophils % (auto) 3.5 %; Hematocrit (blood only) 36.7 % (37.0-47.0); Hemoglobin 12.3 g/dl (12.0-16.0); Immature Granulocytes # (auto) 0.03 K/uL (0.01-0.20); Immature Granulocytes % (auto) 0.6 %; Lymphocytes # (auto) 1.99 K/uL (1.2-3.4); Lymphocytes % (auto) 36.7 %; Mean Corpuscular Hemoglobin 28.3 pg (25.0-34.0); Mean Corpuscular Hgb Conc 33.5 g/dL (32.0-36.0); Mean Corpuscular Volume 84.6 fL (80.0-100.0); Mean Platelet Volume 10.2 fL (9.4-12.4); Monocytes # (auto) 0.63 K/uL (0.11-0.59); Monocytes % (auto) 11.6 %; Neutrophils # (auto) 2.54 K/uL (1.40-6.50); Neutrophils % (auto) 46.9 %; Platelet Count 258 K/uL (130-400); RDW Coefficient of Variation 13.4 % (11.5-14.5); RDW Standard Deviation 42.2 fL (36.4-46.3); Red Blood Count 4.34 M/uL (4.20-5.40); White Blood Count 5.42 K/ul (4.8-10.8)
[2022-09-30] MEDS: METOPROLOL TARTRATE 25 MG TAB PO SCH (07:58)
[2022-09-30] MEDS: PHENAZOPYRIDINE HCL 100 MG TAB PO SCH ×3 (07:58→20:04)
--- NOTE | 2022-09-30 09:02 | Urology Progress Note ---
Date of Service September 30, 2022 Assessment & Plan (1) S/P ureteral stent placement: (2) Nephrolithiasis: Plan 47-year-old female with history of obstructing right ureteral stone and UTI s/p right ureteral stent on 09/03/22 who presented to the emergency department today with intractable right flank pain. Reviewed labs and vitals which are within normal limits Agree with continuing antibiotics while urine culture pends although urinalysis is consistent with having a stent in place I had a long discussion with patient that I cannot electively treat her stone until her scheduled surgery next . I explained that I do not have any available OR time until then and it is not an appropriate use of hospital resources to tie up a surgeon and an OR staff over the weekend for an elective case when we need to be available for emergencies. She expressed understanding. Continue pain control. Recommend ideally getting patient discharged home with oral medication as surgery would not occur until 10/05/2022. Urology to follow peripherally Admission and Anticipated Discharge Date Admission Date: September 29, 2022 Subjective No acute issues overnight. Afebrile with stable vitals. Pain is better controlled now that she is admitted. Patient is requesting stone treatment today. Review of Systems Review of Systems: 14 point review of systems negative outside of what is listed above in HPI Physical Exam Physical Exam: General: Alert and oriented, no acute distress HEENT: Normocephalic, mucous membranes moist Pulmonary: Nonlabored respirations Abdomen: Nondistended Extremities: Moves all 4 spontaneously Neuro: No gross deficits Skin: Warm, dry, no rashes noted Results & Data Vital Signs (Past 12 Hours) Vital Signs Temp Pulse Resp BP Pulse Ox O2 Del Method 09/30/22 07:19 36.5 C 84 16 99/66 L 93 Room Air 09/29/22 22:02 36.9 C 77 15 110/75 94 Room Air PG Care Time/CCT Total # of Minutes Spent Total Time Spent with Patient: Total time spent is greater than 50% in coordination of care (as documented) at patient's floor/unit and/or counseling patient: Coding Level of Care Code 55915 SUB INP/OBS CARE 2/35MIN Diagnoses S/P ureteral stent placement Z96.0 Nephrolithiasis N20.0
[2022-09-30 09:16] LABS: BUN Creatinine Ratio 14.8 (10-20); Calcium 8.8 mg/dl (8.6-10.3); Creatinine Clr Calc Pharmacy 131.5 ml/min; Est GFR (African American) 124.2 ml/min; Est GFR (Non-African American) 107.2 ml/min; Potassium 3.8 mmol/L (3.5-5.1)
[2022-09-30] MEDS ORDERED: cefTRIAXone SODIUM 2,000 MG in DEXTROSE 5% 50 ML IV SCH (11:00)
[2022-09-30] MEDS ORDERED: ACETAMINOPHEN 500 MG TAB PO PRN ×2 (11:25→16:23)
[2022-09-30] MEDS: HYDROmorphone HCL 2 MG TAB PO PRN ×4 (11:40→22:22)
[2022-09-30] MEDS: oxyBUTYnin chloride 5 MG TAB PO PRN (11:40)
[2022-09-30] MEDS: ONDANSETRON 8MG OD TAB PO PRN (14:41)
--- NOTE | 2022-09-30 16:15 | Hospitalist Progress Note ---
Date of Service September 30, 2022 Assessment & Plan (1) Nephrolithiasis: Plan: Tati Bhat is a 47 year-old female with history of nephrolithiasis who was admitted to [facility] for uncontrolled right flank pain - history of an obstructing right ureteral stone and UTI s/p right ureteral stent on 09/03/22 - planned surgical intervention for stone removal on 10/05/22 -- however despite oral dilaudid prescribed to her by Dr. Ricketts to provide analgesia in the interim, patient had intractable R flank pain which prompted admission - urology has been consulted, no planned intervention until prescheduled surgery date of 10/05/22 (see Dr. Rickettss note) - UA with protein, blood, leukocyte esterase, nitrites; consistent with stent placement; however will continue Ceftriaxone 2g daily until urine culture finalizes. Continue AZO for bladder spams. - increased pain regimen today, as it was still not adequately controlled. Mild- Tylenol 1000mg q8 scheduled (changed from prn) Moderate- Toradol 10mg q6h prn High -Dilaudid 2mg po q3 hour prn. (dose increased) Breakthrough - Dilaudid 1mg IV q4h prn (added) If patient's pain becomes controlled on PO regimen --> she can be discharged home, with plan to have elective surgery on 10/05/22 as originally scheduled. VTE Prophylaxis: Low risk Diet: regular diet Code Status: Full Code Dispo: Med-surg Admission and Anticipated Discharge Date Admission Date: September 29, 2022 Subjective Patient remains uncomfortable -- counting down the minutes until next pain medication dose is due. She is frustrated that she cannot have surgery done over the weekend, but understands why this is the case. Review of Systems Review of Systems: All systems reviewed & are unremarkable except as noted in HPI & below Physical Exam Constitutional: WD/WN, vitals as above + obese and cooperative Eyes: PERRL, conjunctivae normal, anicteric sclerae ENMT: external ear and nose normal, oropharynx normal Neck: trachea midline Respiratory: normal respiratory effort, lungs clear to auscultation Cardiovascular: RRR, no murmur, no edema Heart Sounds: normal S1 and normal S2 Musculoskeletal: Head/Neck/Chest: normocephalic and head atraumatic Skin: no rashes, warm and dry Neurologic: moves all extremities Psychiatric: A+Ox3, euthymic affect Results & Data Results & Data Vital Signs (Past 12 Hours) Vital Signs Temp Pulse Resp BP Pulse Ox O2 Del Method 09/30/22 07:55 Room Air 09/30/22 07:19 36.5 C 84 16 99/66 L 93 Room Air PG Care Time/CCT Total # of Minutes Spent Total Time Spent with Patient: Total time spent is greater than 50% in coordination of care (as documented) at patient's floor/unit and/or counseling patient: Coding [place] [address] SUB INP/OBS CARE 2/35MIN Patient Type Established Diagnoses Nephrolithiasis N20.0
[2022-09-30] MEDS: ACETAMINOPHEN 500 MG TAB PO SCH ×2 (16:38→22:22)
[2022-10-01] MEDS: KETOROLAC TROMETHAMINE 15 MG/ML VIAL IV PRN ×3 (02:39→15:36)
[2022-10-01] MEDS: ACETAMINOPHEN 500 MG TAB PO SCH ×3 (06:26→21:05)
[2022-10-01 07:33] LABS: Basophils # (auto) 0.05 K/uL (0-0.2); Basophils % (auto) 0.9 %; Eosinophils # (auto) 0.26 K/uL (0-0.50); Eosinophils % (auto) 4.6 %; Hematocrit (blood only) 39.1 % (37.0-47.0); Hemoglobin 12.5 g/dl (12.0-16.0); Immature Granulocytes # (auto) 0.04 K/uL (0.01-0.20); Immature Granulocytes % (auto) 0.7 %; Lymphocytes # (auto) 2.08 K/uL (1.2-3.4); Mean Corpuscular Volume 87.5 fL (80.0-100.0); Mean Platelet Volume 9.8 fL (9.4-12.4); Monocytes # (auto) 0.64 K/uL (0.11-0.59); Monocytes % (auto) 11.4 %; Neutrophils # (auto) 2.55 K/uL (1.40-6.50); Neutrophils % (auto) 45.4 %; Platelet Count 255 K/uL (130-400); RDW Coefficient of Variation 13.5 % (11.5-14.5); RDW Standard Deviation 43.1 fL (36.4-46.3); Red Blood Count 4.47 M/uL (4.20-5.40); White Blood Count 5.62 K/ul (4.8-10.8)
[2022-10-01] MEDS: METOPROLOL TARTRATE 25 MG TAB PO SCH (07:54)
[2022-10-01 07:55] LABS: BUN Creatinine Ratio 11.5 (10-20); Calcium 9.1 mg/dl (8.6-10.3); Creatinine Clr Calc Pharmacy 102.9 ml/min; Est GFR (African American) 104.2 ml/min; Est GFR (Non-African American) 89.9 ml/min; Potassium 4.3 mmol/L (3.5-5.1)
[2022-10-01] MEDS: HYDROmorphone HCL 2 MG TAB PO PRN ×5 (07:55→22:36)
[2022-10-01] MEDS: PHENAZOPYRIDINE HCL 100 MG TAB PO SCH (07:55)
[2022-10-01] MEDS ORDERED: TAMSULOSIN HCL 0.4 MG CAP PO ONE (09:11)
[2022-10-01] MEDS: HYDROmorphone INJ 0.5 MG/0.5 ML SYR IV PRN ×3 (09:13→21:05)
[2022-10-01] MEDS ORDERED: DOCUSATE SODIUM/SENNA 50/8.6MG TAB PO SCH (09:30)
[2022-10-01] MEDS: POLYETHYLENE (MIRALAX) 17 GM PACK PO SCH (09:38)
--- NOTE | 2022-10-01 11:19 | Hospitalist Progress Note ---
Date of Service October 01, 2022 Assessment & Plan (1) Nephrolithiasis: Plan: Tati Bhat is a 47 year-old female with history of nephrolithiasis who was admitted to [facility] for uncontrolled right flank pain with known right ureteral stent placed Renal US shows mild-mod hydronephrosis R kidney with stent in place - history of an obstructing right ureteral stone and UTI s/p right ureteral stent on 09/03/22 - planned surgical intervention for stone removal on 10/05/22 -- however despite oral dilaudid prescribed to her by Dr. Ricketts to provide analgesia in the interim, patient had intractable R flank pain which prompted admission - urology has been consulted, no planned intervention until prescheduled surgery date of 10/05/22 (see Dr. Ricketts's note) - UA contaminated and bloody sample, pinpoint growth on Ur cx. Received 2 doses of ceftriaxone and then discontinued -renal function normal, no fevers or leukocytosis -pain still not adequately controlled -continue Tylenol 1000mg q8 scheduled -continue Toradol 10mg q6h prn moderate pain -increase dose of po Dilaudid to 4mg po q3 hour prn -continue IV Dilaudid prn severe breakthrough pain -make oxybutynin 5mg po bid scheduled (up from prn) and increase pyridium dose to 200mg po tid -cannot tolerate Flomax in past due to orthostatic hypotension -can dc IVFs (2) Constipation: Plan: add Miralax, senna/docusate, and bisacodyl supp prn Plan DVT proph-ambulatory, low risk Dispo-If patient's pain becomes controlled on PO regimen --> she can be discharged home, with plan to have elective surgery on 10/05/22 as originally scheduled. Admission and Anticipated Discharge Date Admission Date: September 29, 2022 Subjective Pt reports ongoing pain in right side of abdomen and right flank especially with urination. No nausea, is eating well. Has not moved her bowels in several days. Reports previous hypotension with flomax use, Did have a good night with no pain but pain returned today. Physical Exam Constitutional: WD/WN, vitals as above Neck: trachea midline, no thyromegaly Respiratory: normal respiratory effort, lungs clear to auscultation Cardiovascular: RRR, no murmur, no edema Chest (Breasts): Chest: normal inspection of chest Gastrointestinal (Abdomen): Inspection/Auscultation: abdomen normal to inspection and normal bowel sounds; abdomen not distended Percuss ion/Palpation: + abdomen tender (+TTP right mid abdomen w/o guarding/rebound) and abdomen soft Musculoskeletal: Extremities: extremities normal to inspection; no cyanosis and no clubbing Skin: no rashes, warm and dry Neurologic: moves all extremities and awake; no focal motor deficits Psychiatric: A+Ox3, euthymic affect Lymphatic: no lymphedema Results & Data Results & Data Vital Signs (Past 12 Hours) Vital Signs Temp Pulse Resp BP Pulse Ox O2 Del Method 10/01/22 07:12 36.7 C 70 16 104/74 96 Room Air 10/01/22 07:00 Room Air Laboratory Results CBC and BMP reviewed PG Care Time/CCT Total # of Minutes Spent Total Time Spent with Patient: Total time spent is greater than 50% in coordination of care (as documented) at patient's floor/unit and/or counseling patient: Coding Level of Care Code 13101 SUB INP/OBS CARE 2/35MIN Diagnoses Nephrolithiasis N20.0 Constipation K59.00
[2022-10-01] MEDS: oxyBUTYnin chloride 5 MG TAB PO SCH ×2 (11:46→21:06)
[2022-10-01] MEDS: PHENAZOPYRIDINE HCL 200 MG TAB PO SCH ×2 (13:14→21:06)
[2022-10-01] MEDS: bisacodyL 10 MG SUPP PR PRN (18:10)
[2022-10-01] MEDS ORDERED: LACTATED RINGER'S 1,000 ML IV SCH (20:45)
[2022-10-01] MEDS: DOCUSATE SODIUM/SENNA 50/8.6MG TAB PO SCH (21:06)
[2022-10-02] MEDS ORDERED: LACTATED RINGER'S 1,000 ML IV SCH (00:30)
[2022-10-02] MEDS: HYDROmorphone HCL 2 MG TAB PO PRN ×4 (02:18→18:07)
[2022-10-02] MEDS: HYDROmorphone INJ 0.5 MG/0.5 ML SYR IV PRN ×3 (04:20→20:29)
[2022-10-02] MEDS: ACETAMINOPHEN 500 MG TAB PO SCH ×3 (06:21→21:46)
[2022-10-02 08:20] LABS: BUN Creatinine Ratio 14.1 (10-20); Calcium 8.9 mg/dl (8.6-10.3); Creatinine Clr Calc Pharmacy 102.9 ml/min; Est GFR (African American) 104.2 ml/min; Est GFR (Non-African American) 89.9 ml/min; Potassium 4.4 mmol/L (3.5-5.1)
[2022-10-02] MEDS: PHENAZOPYRIDINE HCL 200 MG TAB PO SCH ×3 (08:40→20:29)
[2022-10-02] MEDS: oxyBUTYnin chloride 5 MG TAB PO SCH ×2 (08:40→20:28)
[2022-10-02] MEDS: DOCUSATE SODIUM/SENNA 50/8.6MG TAB PO SCH ×2 (08:40→20:28)
[2022-10-02] MEDS: METOPROLOL TARTRATE 25 MG TAB PO SCH (08:40)
[2022-10-02] MEDS: POLYETHYLENE (MIRALAX) 17 GM PACK PO SCH ×2 (08:42→20:28)
[2022-10-02] MEDS: ONDANSETRON 8MG OD TAB PO PRN (13:37)
--- NOTE | 2022-10-02 17:26 | Hospitalist Progress Note ---
Date of Service October 02, 2022 Assessment & Plan (1) Nephrolithiasis: Plan: Tati Bhat is a 47 year-old female with history of nephrolithiasis who was admitted to [facility] for uncontrolled right flank pain with known right ureteral stent placed Renal US shows mild-mod hydronephrosis R kidney with stent in place - history of an obstructing right ureteral stone and UTI s/p right ureteral stent on 09/03/22 - planned surgical intervention for stone removal on 10/05/22 -- however despite oral dilaudid prescribed to her by Dr. Ricketts to provide analgesia in the interim, patient had intractable R flank pain which prompted admission - urology has been consulted, no planned intervention until prescheduled surgery date of 10/05/22 (see Dr. Ricketts's note) - UA contaminated and bloody sample, Ur cx with Gardenella-like bacteria. Received 2 doses of ceftriaxone and then discontinued -renal function normal, no fevers or leukocytosis -pain still not adequately controlled. constipation also contributing to pain -continue Tylenol 1000mg q8 scheduled -continue Toradol 10mg q6h prn moderate pain -continue po Dilaudid 4mg po q3 hour prn -continue IV Dilaudid prn severe breakthrough pain -continue oxybutynin 5mg po bid scheduled, pyridium 200mg po tid -cannot tolerate Flomax in past due to orthostatic hypotension -does not require IVFs as she is tolerating po, no dehydration (2) Constipation: Plan: Had some BRBPR after digitally self-disimapacting -increase Miralax to bid, continue senna/docusate bid, and bisacodyl supp prn- she will take another one tonight -could add on enema or MOM but she declines at this time Plan DVT proph-ambulatory, low risk Dispo-If patient's pain becomes controlled on PO regimen --> she can be discharged home, with plan to have elective surgery on 10/05/22 as originally scheduled. She does not yet feel pain controlled enough to go home Admission and Anticipated Discharge Date Admission Date: September 29, 2022 Subjective Pt had pain in abdomen overnight and also had BRBPR after manually digitally disimpacting her stool. Had small amount of stool passed. Otherwise some nausea this AM which is now resolved. Is eating, ambulating in halls. Physical Exam Constitutional: WD/WN, vitals as above Neck: trachea midline, no thyromegaly Respiratory: normal respiratory effort, lungs clear to auscultation Cardiovascular: RRR, no murmur, no edema Chest (Breasts): Chest: normal inspection of chest Gastrointestinal (Abdomen): Inspection/Auscultation: abdomen normal to inspection and normal bowel sounds; abdomen not distended Percussion/Palpation: + abdomen tender (+TTP right mid abdomen w/o guarding/rebound) and abdomen soft Musculoskeletal: Extremities: extremities normal to inspection; no cyanosis and no clubbing Skin: no rashes, warm and dry Neurologic: moves all extremities and awake; no focal motor deficits Psychiatric: A+Ox3, euthymic affect Lymphatic: no lymphedema Results & Data Results & Data Vital Signs (Past 12 Hours) Vital Signs Temp Pulse Resp BP Pulse Ox O2 Del Method 10/02/22 15:43 36.6 C 68 99/64 L 93 Room Air 10/02/22 08:10 36.7 C 72 14 123/82 96 Room Air Laboratory Results BMP reviewed PG Care Time/CCT Total # of Minutes Spent Total Time Spent with Patient: Total time spent is greater than 50% in coordination of care (as documented) at patient's floor/unit and/or counseling patient: Coding Level of Care Code 56865 SUB INP/OBS CARE 2/35MIN Diagnoses Nephrolithiasis N20.0 Constipation K59.00
[2022-10-02] MEDS: bisacodyL 10 MG SUPP PR PRN (18:07)
[2022-10-02] MEDS ORDERED: TAMSULOSIN HCL 0.4 MG CAP PO SCH (21:00)
[2022-10-03] MEDS: HYDROmorphone HCL 2 MG TAB PO PRN ×5 (00:57→20:00)
[2022-10-03] MEDS: ACETAMINOPHEN 500 MG TAB PO SCH ×3 (05:54→21:31)
[2022-10-03] MEDS: oxyBUTYnin chloride 5 MG TAB PO SCH ×2 (08:44→20:00)
[2022-10-03] MEDS: PHENAZOPYRIDINE HCL 200 MG TAB PO SCH ×3 (08:44→20:00)
[2022-10-03] MEDS: METOPROLOL TARTRATE 25 MG TAB PO SCH (08:44)
[2022-10-03] MEDS: POLYETHYLENE (MIRALAX) 17 GM PACK PO SCH ×2 (08:44→20:01)
[2022-10-03] MEDS: DOCUSATE SODIUM/SENNA 50/8.6MG TAB PO SCH ×2 (08:44→20:01)
[2022-10-03] MEDS: ONDANSETRON 8MG OD TAB PO PRN ×2 (10:14→17:05)
[2022-10-03] MEDS ORDERED: MAGNESIUM HYDROXIDE SUSP 30 ML UDC PO PRN (13:09)
--- NOTE | 2022-10-03 17:33 | Hospitalist Progress Note ---
Date of Service October 03, 2022 Assessment & Plan (1) Nephrolithiasis: Plan: Tati Bhat is a 47 year-old female with history of nephrolithiasis who was admitted to [facility] for uncontrolled right flank pain with known right ureteral stent placed Renal US shows mild-mod hydronephrosis R kidney with stent in place - history of an obstructing right ureteral stone and UTI s/p right ureteral stent on 09/03/22 - planned surgical intervention for stone removal on 10/05/22 -- however despite oral dilaudid prescribed to her by Dr. Ricketts to provide analgesia in the interim, patient had intractable R flank pain which prompted admission - urology has been consulted, no planned intervention until prescheduled surgery date of 10/05/22 (see Dr. Ricketts's note) , although now possibly may be 10/04-made NPO after midnight - UA contaminated and bloody sample, Ur cx with Gardenella-like bacteria. Received 2 doses of ceftriaxone and then discontinued -renal function normal, no fevers or leukocytosis -pain still not adequately controlled but is slightly improved. constipation al so contributing to pain -continue Tylenol 1000mg q8 scheduled -continue Toradol 10mg q6h prn moderate pain -continue po Dilaudid 4mg po q3 hour prn -continue IV Dilaudid prn severe breakthrough pain -continue oxybutynin 5mg po bid scheduled, pyridium 200mg po tid -cannot tolerate Flomax in past due to orthostatic hypotension -does not require IVFs as she is tolerating po, no dehydration (2) Constipation: Plan: Had some BRBPR after digitally self-disimapacting Had 1 small hard BM on 10/02, now 2 small softer BMs on 10/03 but still feeling very bloated, some nausea -continue Miralax bid, senna/docusate bid, and bisacodyl supp prn-she will take another one tonight -gave one dose of MOM today Plan DVT proph-ambulatory, low risk Dispo-remain here until Urology procedure and then discharge after that Admission and Anticipated Discharge Date Admission Date: September 29, 2022 Subjective Still having rt sided abd pain. Feels bloated today, some nausea. Had 2 more softer small BMs today but feels a lot of pressure in her kidney region. No other complaints Ambulated halls today Physical Exam Constitutional: WD/WN, vitals as above Neck: trachea midline, no thyromegaly Respiratory: normal respiratory effort, lungs clear to auscultation Cardiovascular: RRR, no murmur, no edema Chest (Breasts): Chest: normal inspection of chest Gastrointestinal (Abdomen): Inspection/Auscultation: abdomen normal to inspection and normal bowel sounds; abdomen not distended Percussion/Palpation: + abdomen tender (+TTP right mid abdomen w/o guarding/rebound) and abdomen soft Musculoskeletal: Extremities: extremities normal to inspection; no cyanosis and no clubbing Skin: no rashes, warm and dry Neurologic: moves all extremities and awake; no focal motor deficits Psychiatric: A+Ox3, euthymic affect Lymphatic: no lymphedema Results & Data Results & Data Vital Signs (Past 12 Hours) Vital Signs Temp Pulse Resp BP Pulse Ox O2 Del Method 10/03/22 15:52 37 C 68 16 103/67 94 Room Air 10/03/22 07:41 36.6 C 60 16 106/70 93 Room Air PG Care Time/CCT Total # of Minutes Spent Total Time Spent with Patient: Total time spent is greater than 50% in coordination of care (as documented) at patient's floor/unit and/or counseling patient: Coding Level of Care Code 32184 SUB INP/OBS CARE 2/35MIN Diagnoses Nephrolithiasis N20.0 Constipation K59.00
[2022-10-03] MEDS: bisacodyL 10 MG SUPP PR PRN (18:11)
[2022-10-03] MEDS: HYDROmorphone INJ 0.5 MG/0.5 ML SYR IV PRN (22:40)
[2022-10-04] MEDS: HYDROmorphone HCL 2 MG TAB PO PRN ×4 (02:29→17:37)
[2022-10-04] MEDS: ACETAMINOPHEN 500 MG TAB PO SCH ×3 (05:17→21:15)
[2022-10-04 06:53] LABS: Basophils # (auto) 0.04 K/uL (0-0.2); Basophils % (auto) 0.5 %; Eosinophils # (auto) 0.23 K/uL (0-0.50); Eosinophils % (auto) 3.1 %; Hematocrit (blood only) 38.2 % (37.0-47.0); Hemoglobin 12.3 g/dl (12.0-16.0); Immature Granulocytes # (auto) 0.04 K/uL (0.01-0.20); Immature Granulocytes % (auto) 0.5 %; Lymphocytes # (auto) 2.07 K/uL (1.2-3.4); Lymphocytes % (auto) 27.8 %; Mean Corpuscular Hgb Conc 32.2 g/dL (32.0-36.0); Mean Corpuscular Volume 86.8 fL (80.0-100.0); Mean Platelet Volume 10.2 fL (9.4-12.4); Monocytes # (auto) 0.81 K/uL (0.11-0.59); Monocytes % (auto) 10.9 %; Neutrophils # (auto) 4.25 K/uL (1.40-6.50); Neutrophils % (auto) 57.2 %; Platelet Count 270 K/uL (130-400); RDW Coefficient of Variation 13.8 % (11.5-14.5); RDW Standard Deviation 43.8 fL (36.4-46.3); White Blood Count 7.44 K/ul (4.8-10.8)
[2022-10-04 07:09] LABS: BUN Creatinine Ratio 12.8 (10-20); Calcium 9.3 mg/dl (8.6-10.3); Creatinine Clr Calc Pharmacy 85.4 ml/min; Est GFR (African American) 83.1 ml/min; Est GFR (Non-African American) 71.7 ml/min; Magnesium 2.2 mg/dl (1.7-2.4); Potassium 4.2 mmol/L (3.5-5.1)
[2022-10-04] MEDS: METOPROLOL TARTRATE 25 MG TAB PO SCH (08:10)
[2022-10-04] MEDS: PHENAZOPYRIDINE HCL 200 MG TAB PO SCH ×3 (09:52→21:16)
[2022-10-04] MEDS: oxyBUTYnin chloride 5 MG TAB PO SCH ×2 (09:52→21:16)
[2022-10-04] MEDS: DOCUSATE SODIUM/SENNA 50/8.6MG TAB PO SCH ×2 (10:00→21:16)
[2022-10-04] MEDS: POLYETHYLENE (MIRALAX) 17 GM PACK PO SCH ×2 (10:00→21:16)
--- NOTE | 2022-10-04 10:05 | Anesthesiology Consultation ---
Date of Service October 04, 2022 Assessment & Plan (1) Encounter for pre-operative examination: Chart Review Chart Review: Acceptable Risk for Surgery and Patient NOT seen in Pre Admission Testing Consults Requested none History Surgery Operation Date: 10/04/22 12:50 Proposed Procedures p Cystoscopy, Right Ureteroscopy, Right Retrograde Pyelogram,Laser Lithotripsy with Stent Exchange - [place]ano Ricketts MD Operation Date: 10/05/22 07:30 Proposed Procedures p Cystoscopy, Ureteronephroscopy, Retrograde Pyelogram, with Possible Ureteral Dilation, Laser Destruction or Extraction of the Stone, Insertion or Exchange of Stent Catheter - Right - [place] Ricketts MD Height/Weight Height: 5 ft 5 in Weight: 99.2 kg Allergies Allergy/AdvReac Type Severity Reaction Status Date / Time No Known Allergies Allergy Mild Verified 09/26/22 11:04 Medications Home Medications Medication Instructions Recorded Confirmed Last Taken acetaminophen 500 mg tablet 1,000 mg PO AMPM 09/11/22 09/29/22 Unknown (Tylenol Extra Strength) ketorolac 30 mg/mL (1 mL) 30 mg IM DIRECTED PRN Migraine 09/11/22 09/29/22 Unknown injection solution Headache metoprolol tartrate 25 mg tablet 12.5 mg PO QPM PRN ..tachycardia 09/11/22 09/29/22 Unknown metoprolol tartrate 25 mg tablet 25 mg PO QAM 09/11/22 09/29/22 Unknown oxybutynin chloride 5 mg tablet 5 mg PO BID PRN bladder spasms #30 09/13/22 09/29/22 Unknown tabs phenazopyridine 100 mg tablet 100 mg PO TID PRN .bladder pain 09/13/22 09/29/22 Unknown #14 tabs albuterol sulfate 90 mcg/actuation 1 puff inhalation QID PRN 09/26/22 09/29/22 Unknown aerosol inhaler Shortness Of Breath Or Wheezing amoxicillin 500 mg-potassium 0 tab PO Q12H 09/29/22 09/29/22 Unknown clavulanate 125 mg tablet Active Medications Generic Name Dose Route Start Last Admin Trade Name Freq PRN Reason Stop Dose Admin Acetaminophen 1,000 mg 09/30/22 16:30 10/04/22 05:17 Acetaminophen 500 Mg Tab PO 10/30/22 16:29 1,000 mg Q8 CELINA Administration Bisacodyl 10 mg 10/01/22 09:21 10/03/22 18:11 Bisacodyl 10 Mg Supp VT 10/31/22 09:20 10 mg DAILY PRN Administration Constipation Hydromorphone HCl 1 mg 09/30/22 11:22 10/03/22 22:40 Hydromorphone Inj 0.5 Mg/0.5 Ml Syr IV 10/13/22 12:37 1 mg Q4H PRN Administration pain, 3rd line/breakthrough if Hydromorphone HCl 4 mg 10/01/22 09:22 10/04/22 09:50 Hydromorphone Hcl 2 Mg Tab PO 10/14/22 11:20 4 mg Q3H PRN Administration Severe Pain (Scale 7, 8, 9,10) Ketorolac Tromethamine 10 mg 09/29/22 21:18 10/01/22 15:36 Ketorolac Tromethamine 15 Mg/Ml Vial IV 10/04/22 12:34 10 mg Q6H PRN Administration Pain, second line Magnesium Hydroxide 30 ml 10/03/22 13:09 10/03/22 13:49 Magnesium Hydroxide Susp 30 Ml Udc PO 11/02/22 13:08 30 ml Q6H PRN Administration Constipation Metoprolol Tartrate 25 mg 09/30/22 09:00 10/04/22 08:10 Metoprolol Tartrate 25 Mg Tab PO 10/30/22 08:59 Not Given QAM CELINA Ondansetron HCl 8 mg 09/30/22 14:10 10/03/22 17:05 Ondansetron 8mg Od Tab PO 10/30/22 14:09 8 mg Q4H PRN Administration Nausea And Vomiting Oxybutynin Chloride 5 mg 10/01/22 11:30 10/04/22 09:52 Oxybutynin Chloride 5 Mg Tab PO 10/31/22 11:29 5 mg BID CELINA Administration Phenazopyridine HCl 200 mg 10/01/22 14:00 10/04/22 09:52 Phenazopyridine Hcl 200 Mg Tab PO 10/31/22 13:59 200 mg TID CELINA Administration Polyethylene Glycol 17 gm 10/02/22 21:00 10/04/22 10:00 Polyethylene (Miralax) 17 Gm Pack PO 11/01/22 20:59 Not Given BID CELINA Senna/Docusate Sodium 1 tab 10/01/22 21:00 10/04/22 10:00 Docusate Sodium/Senna 50/8.6mg Tab PO 10/31/22 20:59 Not Given BID CELINA Past Medical History Medical History Asthma Crohns disease NO MEDICATIONS. WELL CONTROLLED WITH DIET. GERD (gastroesophageal reflux disease) CURRENT, NO MEDS Kidney stones Migraine CONTROLLED LATELY Sinus tachycardia does not follow w/ cardio, controlled w/ metoprolol Past Family History Family History Uncle Family history of diabetes mellitus Father FHx: prostate cancer Esophageal cancer Brother Hypertension Mother Cervical cancer Past Surgical History Surgical History H/O bilateral breast reduction surgery H/O wrist surgery LEFT History of colonoscopy History of esophagogastroduodenoscopy (EGD) History of hysterectomy MIREYA BSO History of laparoscopy History of lithotripsy Hx of cholecystectomy LAP Hx of cystoscopy Social History Smoking Status: Former smoker tobacco type: cigarettes Smoking cigarettes per day: quit 16 yrs ago Do You Dip or Chew Tobacco: No Hx Alcohol Use: No Alcohol type: other alcohol intake frequency: other Hx Substance Use: No substance use type: does not use Physical Exam Vital Signs Last Vital Signs Temp 98.4 F 10/04/22 07:11 Pulse 64 10/04/22 07:11 Resp 16 10/04/22 07:11 BP 110/76 10/04/22 08:20 Pulse Ox 98 10/04/22 08:20 O2 Del Method Room Air 10/04/22 08:20 Testing Laboratory Results 10/04/22 05:36 10/04/22 05:36 Urine Color Dark Yellow 09/29/22 10:01 Urine Appearance Cloudy (Clear) A 09/29/22 10:01 Urine pH 5.5 (4.5-7.5) 09/29/22 10:01 Ur Specific [place] 1.021 (1.000-1.030) 09/29/22 10:01 Urine Protein 2+ (Negative) H 09/29/22 10:01 Urine Glucose (UA) Negative (Negative) 09/29/22 10:01 Urine Ketones Negative (Negative) 09/29/22 10:01 Urine Nitrite Positive (Negative) A 09/29/22 10:01 Ur Leukocyte Esterase 2+ (Negative) H 09/29/22 10:01 Urine WBC (Auto) >30 /hpf (0-5) H 09/29/22 10:01 Urine RBC (Auto) >30 /hpf (0-4) H 09/29/22 10:01 U Hyaline Cast (Auto) 5-10 /lpf (0-5) H 09/29/22 10:01 U Epithel Cells (Auto) 20-30 /lpf (0-5) H 09/29/22 10:01 Urine Bacteria (Auto) Negative (Negative) 09/29/22 10:01 09/29/22 10:01 Urine Culture - Final Urine,Clean Catch Gardnerella-like bacilli Electrocardiogram Date: 09/03/22 Findings: + NSR @
--- NOTE | 2022-10-04 14:21 | Hospitalist Progress Note ---
Date of Service October 04, 2022 Assessment & Plan (1) Nephrolithiasis: Plan: Tati Bhat is a 47 year-old female with history of nephrolithiasis who was admitted to [facility] for uncontrolled right flank pain with known right ureteral stent placed Renal US shows mild-mod hydronephrosis R kidney with stent in place - history of an obstructing right ureteral stone and UTI s/p right ureteral stent on 09/03/22 - planned surgical intervention for stone removal and stent exchange on 10/05/22 -- however despite oral dilaudid prescribed to her by Dr. Ricketts to provide analgesia in the interim, patient had intractable R flank pain which prompted admission - urology has been consulted, no planned intervention until prescheduled surgery date of 10/05/22 (see Dr. Ricketts's note) --made NPO after midnight - UA contaminated and bloody sample, Ur cx with Gardenella-like bacteria. Received 2 doses of ceftriaxone and then discontinued -renal function normal, no fevers or leukocytosis -pain was not adequately controlled and constipation also contributing to pain- now improved after moving bowels -continue Tylenol 1000mg q8 scheduled, Toradol 10mg q6h prn moderate pain, po Dilaudid 4mg po q3 hour prn, and IV Dilaudid prn severe breakthrough pain -continue oxybutynin 5mg po bid scheduled, pyridium 200mg po tid -cannot tolerate Flomax in past due to orthostatic hypotension -Plan to discharge to home with small amount of p.o. Dilaudid after urology procedure tomorrow (2) Constipation: Plan: Had some BRBPR after digitally [id number] further since that time Had 1 small hard BM on 10/02, 2 small softer BMs on 10/03 but still feeling very bloated, some nausea Now had very large bowel movement overnight 10/03-10/04 after dose of milk of magnesia-feeling much better -continue Miralax bid, senna/docusate bid, and bisacodyl supp prn Plan DVT proph-ambulatory, low risk Dispo-remain here until Urology procedure and then discharge after that on 10/05 Admission and Anticipated Discharge Date Admission Date: September 29, 2022 Anticipated date of discharge: 10/05/22 Subjective Patient had a very large bowel movement last night and feels much better in her abdomen since then. Still has some pain in the right side. No nausea. No other complaints. Awaiting urology procedure which was potentially today, but later was pushed back till tomorrow again. Physical Exam Constitutional: WD/WN, vitals as above Neck: trachea midline, no thyromegaly Respiratory: normal respiratory effort, lungs clear to auscultation Cardiovascular: RRR, no murmur, no edema Chest (Breasts): Chest: normal inspection of chest Gastrointestinal (Abdomen): Inspection/Auscultation: abdomen normal to inspection and normal bowel sounds; abdomen not distended Percussion/Palpation: + abdomen tender (+TTP right mid abdomen w/o guarding/rebound) and abdomen soft Musculoskeletal: Extremities: extremities normal to inspection; no cyanosis and no clubbing Skin: no rashes, warm and dry Neurologic: moves all extremities and awake; no focal motor deficits Psychiatric: A+Ox3, euthymic affect Lymphatic: no lymphedema Results & Data Results & Data Vital Signs (Past 12 Hours) Vital Signs Temp Pulse Resp BP Pulse Ox O2 Del Method 10/04/22 08:20 110/76 98 Room Air 10/04/22 07:11 36.9 C 64 16 87/56 L 90 Room Air Laboratory Results CBC, BMP, magnesium all reviewed and normal PG Care Time/CCT Total # of Minutes Spent Total Time Spent with Patient: Total time spent is greater than 50% in coordination of care (as documented) at patient's floor/unit and/or counseling patient: Coding Level of Care Code 41484 SUB INP/OBS CARE 1/25MIN Diagnoses Nephrolithiasis N20.0 Constipation K59.00
--- NOTE | 2022-10-04 15:42 | Urology Progress Note ---
Date of Service October 04, 2022 Assessment & Plan (1) S/P ureteral stent placement: (2) Nephrolithiasis: Plan 47-year-old female with history of obstructing right ureteral stone and UTI s/p right ureteral stent on 09/03/22 admitted with intractable right flank pain. Afebrile, vitals stable. Labs reviewed-no leukocytosis and normal renal function. Urine culture 09/29 with Gardenella-like bacteria. Received 2 doses of ceftriaxone and then discontinued. Will plan to proceed to OR tomorrow as scheduled for stone treatment with Dr. Ricketts. NPO at midnight. Urology will follow. Admission and Anticipated Discharge Date Admission Date: September 29, 2022 Subjective Patient examined at bedside this afternoon. Awake, resting in bed on arrival. No acute distress. Review of Systems Constitutional: no fever and no chills Gastrointestinal: no abdominal pain, no nausea and no vomiting Genitourinary: no difficulty urinating Physical Exam Constitutional: no acute distress Respiratory: no respiratory distress and no labored breathing Neurologic: awake Psychiatric: A+Ox3, euthymic affect Results & Data Vital Signs (Past 12 Hours) Vital Signs Temp Pulse Resp BP BP Pulse Ox O2 Del Method 10/04/22 14:34 36.8 C 67 17 110/70 94 Room Air 10/04/22 08:20 110/76 98 Room Air 10/04/22 07:11 36.9 C 64 16 87/56 L 90 Room Air PG Care Time/CCT Total # of Minutes Spent Total Time Spent with Patient: Total time spent is greater than 50% in coordination of care (as documented) at patient's floor/unit and/or counseling patient: Coding Level of Care Code 51690 SUB INP/OBS CARE 04/05MIN Diagnoses S/P ureteral stent placement Z96.0 Nephrolithiasis N20.0
[2022-10-05] MEDS: HYDROmorphone HCL 2 MG TAB PO PRN ×2 (00:09→12:31)
[2022-10-05] MEDS: ACETAMINOPHEN 500 MG TAB PO SCH ×2 (05:59→09:11)
[2022-10-05] MEDS ORDERED: ATROPINE SULFATE 0.1 MG/ML 10ML SYR IV PRN (07:11)
[2022-10-05] MEDS ORDERED: PROMETHAZINE HCL 6.25 MG in SODIUM CHLORIDE 0.9% 50 ML IV PRN (07:11)
[2022-10-05] MEDS ORDERED: ONDANSETRON INJ 2 MG/ML 2 ML VIAL IV PRN (07:11)
[2022-10-05] MEDS ORDERED: fentaNYL citrate PF 100 MCG/2 ML VIAL IV PRN (07:11)
--- NOTE | 2022-10-05 07:18 | Urology Progress Note ---
Date of Service October 05, 2022 Assessment & Plan (1) Nephrolithiasis: Plan 47-year-old female with history of obstructing right ureteral stone and UTI s/p right ureteral stent on 09/03/22 who presented to the emergency department today with intractable right flank pain. To OR for cystoscopy, right retrograde pyelogram, right ureteroscopy, laser lithotripsy, basket stone extraction, right ureteral stent exchange on scheduled date Consent reviewed Patient marked Admission and Anticipated Discharge Date Admission Date: September 29, 2022 Subjective No acute issues overnight. N.p.o. for scheduled surgery today Review of Systems Review of Systems: 14 point review of systems negative outside of what is listed above in HPI Physical Exam Physical Exam: General: Alert and oriented, no acute distress HEENT: Normocephalic, mucous membranes moist Pulmonary: Nonlabored respirations Abdomen: Nondistended Extremities: Moves all 4 spontaneously Neuro: No gross deficits Skin: Warm, dry, no rashes noted Results & Data Vital Signs (Past 12 Hours) Vital Signs Temp Pulse Resp BP Pulse Ox O2 Del Method 10/05/22 06:46 36.8 C 76 16 110/81 92 Room Air 10/04/22 22:22 36.8 C 80 18 120/77 94 Room Air PG Care Time/CCT Total # of Minutes Spent Total Time Spent with Patient: Total time spent is greater than 50% in coordination of care (as documented) at patient's floor/unit and/or counseling patient: Coding Level of Care Code 67141 SUB INP/OBS CARE 2/35MIN Diagnoses Nephrolithiasis N20.0
--- NOTE | 2022-10-05 08:05 | Operative Report ---
PG Post Operative Report Pre & Post Diagnosis Right urolithiasis Operation Date: 10/05/22 07:30 <No data on this case meets the specified criteria> Right urolithiasis I identified the patient and participated in the time-out.: Yes Procedure Cystoscopy, right retrograde pyelogram with radiographic interpretation, right ureteroscopy, basket stone extraction, right ureteral stent removal Operation Date: 10/05/22 07:30 <No data on this case meets the specified criteria> Surgeon Urbano Ricketts MD [employer] None Estimated Blood Loss 5 Findings See Below Stone in right ureter. Basketed out. Remainder of ureter and kidney free of stones. Retrograde showed no extravasation. Minimal manipulation so opted not to leave a stent as patient has been miserable with stent in place and required hospitalization. Specimens Right ureteral calculus Drains None Anesthesia Type General Complications none Indications 47-year-old female with history of right obstructing ureteral calculus and sepsis. She was emergently stented. She unfortunately has had significant stent colic and has been recently hospitalized over the past several days. She presents for scheduled stone removal. Description of Procedure After informed consent was obtained, the patient was transported to the operative suite. General anesthesia was induced. They were placed in dorsal lithotomy position and prepped and draped in sterile fashion. They received preoperative Ancef. An appropriate surgical timeout was performed. 22 [place] rigid cystoscope was inserted per urethra and the bladder. I turned attention the right ureteral orifice and using a grasper externalized the distal coil of the stent. I advanced a sensor wire and confirmed this in the upper pole of the kidney with fluoroscopy. Stent was removed. Advanced a 10 [place] dual-lumen in the distal ureter and then advanced a second sensor wire to the upper pole of the kidney and confirmed this fluoroscopically. 10 [place] dual- lumen was removed. I advanced a flexible ureteroscope over the sensor wire into the ureter and remove the sensor wire. I encountered the stone in the mid ureter. Using a 0 tip nitinol basket this was removed atraumatically and dropped in the bladder. I advanced the scope back up into the ureter and into the kidney. Johnson pyeloscopy revealed no stones. I shot a retrograde pyelogram which showed no extravasation. Inspection of the ureter showed no remaining stones or injuries. Flexible ureteroscope was removed. I opted to not leave a stent as the patient has poorly tolerated the stent requiring hospitalization and there was minimal manipulation to get her stone out. The other safety wire was removed. Bladder was emptied along with the stone. This concluded the end of the case. All counts correct at the end of the case. I was present scrubbed and actively participated for the entirety of the procedure. I attest to the content of the Intraoperative Record and any orders documented therein. Any exceptions are noted below.
[2022-10-05] MEDS: DIATRIZOATE MEGLUMINE 30% 100ML VIAL INSTIL ONE ×2 (08:20→09:04)
[2022-10-05] MEDS ORDERED: ceFAZolin 2000MG 2,000 MG/15 ML SYR IV ONE (08:20)
[2022-10-05] MEDS: POLYETHYLENE (MIRALAX) 17 GM PACK PO SCH (09:10)
[2022-10-05] MEDS: DOCUSATE SODIUM/SENNA 50/8.6MG TAB PO SCH (09:10)
[2022-10-05] MEDS: PHENAZOPYRIDINE HCL 200 MG TAB PO SCH (09:11)
[2022-10-05] MEDS: METOPROLOL TARTRATE 25 MG TAB PO SCH (09:11)
[2022-10-05] MEDS: oxyBUTYnin chloride 5 MG TAB PO SCH (09:11)
--- NOTE | 2022-10-05 09:50 | Anesthesiology Progress Note ---
Date of Service October 05, 2022 Anesthesia Post Procedure Vital Signs Vital Signs: Temp Pulse Pulse Resp BP BP Pulse Ox 10/05/22 09:47 36.9 C 67 16 117/80 91 10/05/22 09:30 10/05/22 09:15 36.6 C 90 16 120/86 92 10/05/22 08:55 36 C L 69 12 111/92 93 10/05/22 08:45 81 16 118/76 93 10/05/22 08:35 81 11 L 113/78 92 10/05/22 08:25 79 16 122/77 92 10/05/22 08:15 36.5 C 82 13 116/81 90 10/05/22 06:46 36.8 C 76 16 110/81 92 10/04/22 22:22 36.8 C 80 18 120/77 94 10/04/22 14:34 36.8 C 67 17 110/70 94 O2 Del Method O2 Flow Rate 10/05/22 09:47 Nasal Cannula 1 10/05/22 09:30 Nasal Cannula 2 10/05/22 09:15 Nasal Cannula 2 10/05/22 08:55 Nasal Cannula 2 10/05/22 08:45 Nasal Cannula 2 10/05/22 08:35 Nasal Cannula 4 10/05/22 08:25 Oxymask 9 10/05/22 08:15 Oxymask 5 10/05/22 06:46 Room Air 10/04/22 22:22 Room Air 10/04/22 14:34 Room Air Pain Intensity Right Flank: Pain Intensity: 4 Transfer of Care Handoff Completed per policy Notes Mental Status: alert / awake / arousable Patient Amnestic to Procedure: Yes Nausea / Vomiting: adequately controlled Pain: adequately controlled Airway Patency, RR, SpO2: stable & adequate BP & HR: stable & adequate Hydration State: stable & adequate Anesthetic Complications: no major complications apparent
--- NOTE | 2022-10-05 10:31 | Fluoroscopy Report ---
FL retrograde includes kub CLINICAL HISTORY: Right COMPARISON STUDY: CT of the abdomen and pelvis September 11, 2022 and KUB September 29, 2022. FLUOROSCOPY TIME: 5 seconds. Ka, r: 1.57 mGy FLUOROSCOPIC IMAGES: 1 FINDINGS: Fluoroscopy was provided during right retrograde pyelogram, stone extraction and right uret eral stent removal. IMPRESSION: Fluoroscopy provided during right retrograde pyelogram, stone extraction and right urete ral stent removal. ACT 112: Negative or not required by law. Electronically signed by: Don Campos M.D. 10/05/2022 10:30 AM
--- NOTE | 2022-10-05 12:52 | Discharge Summary ---
Date of Service October 05, 2022 Admission HPI Per Admitting Provider Tati Bhat is a 47 year-old female with h/o nephrolithiasis who presented to the ED with right sided flank pain. Has been admitted on two separate occasions in the past month for similar symptoms, had right sided stent placed on 09/03- has been in pain since then. Has scheduled outpatient procedure to remove old stent/place new stent and remove stone on 10/05 but patient doesn't feel she can wait that long. Notes pain on both left and right sides (more pain on right), lots of bladder pressure and burning with urination. Denies fever/body aches/chills, shortness of breath or chest pain. Notes nausea when pain is at its worst, denies constipation or diarrhea. Principal Diagnosis nephrolithiasis Discharge Exam Constitutional WD/WN, vitals as above Neck trachea midline, no thyromegaly Respiratory normal respiratory effort, lungs clear to auscultation Cardiovascular RRR, no murmur, no edema Chest (Breasts) Chest: normal inspection of chest Gastrointestinal (Abdomen) Inspection/Auscultation: abdomen normal to inspection and normal bowel sounds; abdomen not distended Percussion/Palpation: abdomen soft Musculoskeletal Extremities: extremities normal to inspection; no cyanosis and no clubbing Skin no rashes, warm and dry Neurologic moves all extremities and awake; no focal motor deficits Psychiatric A+Ox3, euthymic affect Lymphatic no lymphedema Discharge Data Allergies Allergy/AdvReac Type Severity Reaction Status Date / Time No Known Allergies Allergy Mild Verified 09/26/22 11:04 Consultations 09/29/22 12:03 ED Decision to Admit Stat 09/29/22 12:45 Consult Urology Stat Procedures Performed Operation Date: 10/05/22 07:30 Actual Procedures p Cystoscopy, right retrograde pyelogram with radiographic interpretation, right ureteroscopy, basket stone extraction, right ureteral stent removal(Right) - Urbano Ricketts MD Ordered Studies 09/29/22 07:33 US renal/blad retro comp Stat 10/05/22 [place] retrograde includes kub Routine Hospital Course (1) Nephrolithiasis: Ttai Bhat is a 47 year-old female with history of nephrolithiasis who was admitted to [facility] for uncontrolled right flank pain with known right ureteral stent placed Renal US shows mild-mod hydronephrosis R kidney with stent in place - history of an obstructing right ureteral stone and UTI s/p right ureteral stent on 09/03/22 - planned surgical intervention for stone removal and stent exchange on 10/05/22 -- however despite oral dilaudid prescribed to her by Dr. Ricketts to provide analgesia in the interim, patient had intractable R flank pain which prompted admission - urology has been consulted, no planned intervention until prescheduled surgery date of 10/05/22 (see Dr. Ricketts's note) --made NPO after midnight - UA contaminated and bloody sample, Ur cx with Gardenella-like bacteria. Received 2 doses of ceftriaxone and then discontinued -renal function normal, no fevers or leukocytosis -pain was not adequately controlled and constipation also contributing to pain- now improved after moving bowels -continue Tylenol 1000mg q8 scheduled, Toradol 10mg q6h prn moderate pain, po Dilaudid 4mg po q3 hour prn, and IV Dilaudid prn severe breakthrough pain -continue oxybutynin 5mg po bid scheduled, pyridium 200mg po tid -cannot tolerate Flomax in past due to orthostatic hypotension Procedure on 10/05/22: Cystoscopy, right retrograde pyelogram with radiographic interpretation, right ureteroscopy, basket stone extraction, right ureteral stent removal - discharge to home with small amount of p.o. Dilaudid (2) Constipation: Had some BRBPR after digitally [id number] further since that time Had 1 small hard BM on 10/02, 2 small softer BMs on 10/03 but still feeling very bloated, some nausea Now had very large bowel movement overnight 10/03-10/04 after dose of milk of magnesia-feeling much better -continue Miralax bid, senna/docusate bid, and bisacodyl supp prn Total Time Total Time Spent Total Time Spent (In Minutes): 35 Discharge Plan Discharge Items Patient Disposition: Home - Self-Care Reason For Visit: FLANK PAIN Discharge Diagnosis: flank pain Activity: Resume your previous activity Non-emergency contact: Primary Care Provider Call non-emergency contact if: you have any medication questions Follow-up/Referrals: Mac Allan [Primary Care Provider] - 10/12/22 8:40 am Urbano Ricketts MD [Physician] - 12/20/22 11:40 am Diet: Regular Addtl Attending Provider Instructions: recommend followup with your Urologist in 2-6 weeks. Recommend followup with your PCP in 1-2 weeks. Pending Studies at Discharge: No Stand-Alone Forms: My [facility] [employer], Pain - Opioid Pain Management, Smoking Cessation Medications and DC Order Prescriptions: New hydromorphone [Dilaudid] 2 mg tablet 2 mg PO Q6H Qty: 10 0RF polyethylene glycol 3350 [Miralax] 17 gram Powder In Packet 17 g PO BID Qty: 14 0RF sennosides-docusate sodium [Senokot-S] 8.6-50 mg Tablet 1 tab PO BID 7 Days Qty: 14 0RF Continued phenazopyridine 100 mg tablet 100 mg PO TID PRN (Reason: .bladder pain) Qty: 14 1RF oxybutynin chloride 5 mg tablet 5 mg PO BID PRN (Reason: bladder spasms) Qty: 30 1RF albuterol sulfate 90 mcg/actuation Hfa Aerosol Inhaler 1 puff INHALATION QID PRN (Reason: Shortness Of Breath Or Wheezing) acetaminophen [Tylenol Extra Strength] 500 mg Tablet 1,000 mg PO AMPM metoprolol tartrate 25 mg tablet 25 mg PO QAM metoprolol tartrate 25 mg tablet 12.5 mg PO QPM PRN (Reason: ..tachycardia) ketorolac 30 mg/mL (1 mL) Solution 30 mg IM DIRECTED PRN (Reason: Migraine Headache) Discontinued amoxicillin-pot clavulanate 500-125 mg tablet 0 tab PO Q12H Rx Instructions: hasnt started yet. Told pt to start sunday Discharge Orders: Discharge Order (Routine); Ordered 10/05/22 Ordered By: Shay Linton/Other Patient Handouts: Cystoscopy Admission Data Admit Date/Time: 09/29/22 12:32 Attending Provider: Shay Alcantara Admit Provider: Michelle Quiroz Primary Care Provider: Mac Allan Other Providers: Kleber Cabrera ; Urbano Ricketts Other Interventions: Discharge Summary Assessment (RN) Last Done: 10/05/22 12:49 Coding Level of Care Code 40972 INP/OBS DISCH >30 MIN Diagnoses Nephrolithiasis N20.0 Constipation K59.00
== END 2022-10-05 13:31 | disposition home or self-care (01) ==
LOC: ED 07:18 → SUATTDRO 12:32 → 3N 12:32 → INTOOBSV 12:32 → 3N 14:22
DX: A48.8 Other specified bacterial diseases; Z96.0 Presence of urogenital implants; Z79.899 Other long term (current) drug therapy; Z87.891 Personal history of nicotine dependence; N13.2 Hydronephrosis with renal and ureteral calculous obstruction; K59.00 Constipation, unspecified

== ENCOUNTER 2023-07-29 13:41 | Inpatient (IN) ==
--- NOTE | 2023-07-29 14:46 | Emergency Department Note ---
Impression & Plan Calculus of proximal left ureter ED Provider Note CHIEF COMPLAINT: Left flank pain HISTORY OF PRESENTING ILLNESS: This is a 48-year-old female who presents to the emergency department by private vehicle with complaint of left-sided flank pain that started about 2 weeks ago, but became worse last night. The patient states the pain is constant, severe, sharp and radiating from her back into her upper abdomen, she rates the pain 9/10. She has taken Tylenol at home without relief. She has had associated nausea but no vomiting. She denies any fevers, chills, or feeling ill. She notes a history of previous kidney stones and states "I am never able to pass them on my own" and notes that her last stone required a stent and a prolonged hospital stay. She also notes that she was septic during that time. She follows with [facility] urology. She has had some urinary urgency and frequency, she denies dysuria, hematuria, cloudy or foul-smelling urine.[] She has also been having some diarrhea today with her pain. She denies any bloody or black stools. REVIEW OF SYSTEMS: A complete 10 point review of systems was reviewed with the patient with pertinent positives and negatives as per history of present illness. All else were negative. PAST MEDICAL HISTORY: Hypertension, asthma, migraines, history of kidney stones, endometriosis, GERD, history of cholecystectomy, hysterectomy, bilateral breast reduction surgery, wrist surgery SOCIAL HISTORY: Lives at home, former smoker ALLERGIES: No known allergies PHYSICAL EXAM: CONSTITUTIONAL: Pleasant and cooperative. Nontoxic-appearing and in no acute distress. Well appearing and well nourished. HEENT: Normocephalic, atraumatic. NECK: Supple, full active range of motion without discomfort. RESPIRATORY: Clear to auscultation bilaterally with no wheezing, crackles, rhonchi or stridor. Equal expansion bilaterally. CARDIOVASCULAR: Regular rate and rhythm with no murmurs, rubs or gallops. Normal peripheral perfusion. No edema. GASTROINTESTINAL: Tender to palpation in the left flank region, abdomen is otherwise nontender, soft and nondistended. Obese abdomen. No palpable masses or HSM. Bowel sounds present in all quadrants. Left-sided CVA tenderness to percussion. No right-sided CVA tenderness. MUSCULOSKELETAL: Full range of motion of all joints without discomfort. INTEGUMENTARY: No rash or other significant dermatologic conditions noted. NEUROLOGIC: Alert and oriented X 4 with normal affect. Normal strength and sensation in all 4 extremities. Normal speech. Normal gait observed. ED COURSE AND MEDICAL DECISION MAKING: CC: Patient presenting with complaint of left flank pain DIFFERENTIAL DIAGNOSIS: Includes, but not limited to ureteral stone, UTI, pyelonephritis, pancreatitis, choledocholithiasis, diverticulitis, ovarian cyst, infectious colitis, gastroenteritis, among others. INTERPRETATION OF LABS: No leukocytosis, no anemia, normal platelets, no significant electrolyte abnormalities, normal renal function, normal liver enzymes and lipase. UA shows large blood, small WBCs with moderate epithelial cells and no bacteria, appears contaminated. Urine culture pending. MEDICATION RECONCILIATION: I attest that I have personally reviewed the patient's current medication list. INITIAL VITAL SIGNS REVIEW: I reviewed the patient's initial vital signs and interpret them as follows: T: Afebrile; BP: Normotensive; HR: Mildly tachycardic; RR: Within normal limits; Pulse Ox: Within normal limits on room air. MDM SUMMARY: Patient was evaluated at bedside, history and physical exam performed. Patient is alert and oriented, in no acute distress, but appears uncomfortable from pain, sitting on the edge of the stretcher. She is afebrile and nontoxic-appearing. Left CVA and flank tenderness on exam, no acute abdomen. Records from urology and inpatient were reviewed, noting the patient's previous hospitalization summer 2022 during which time she had a prolonged ureteral stent and was treated for infected stone. The patient has not had any fevers currently and does not appear to be septic. The patient is requesting something for pain and notes that Dilaudid works best for her, stating she does not tolerate morphine due to vomiting. Patient has received IV Dilaudid on numerous previous ED visits and hospital admissions. Orders were placed at bedside for labs, UA, IV fluid bolus for hydration, IV Toradol and IV Dilaudid for pain, IV Zofran for nausea, CT abdomen/pelvis noncontrast. Cardiac monitoring: An order was placed for continuous cardiac monitoring. The monitor shows a rate of 97 bpm with normal sinus rhythm. Labs and imaging reviewed, no leukocytosis, normal renal function, UA appears contaminated. CT imaging notes a left 6 mm proximal obstructing stone in the UPJ with mild hydronephrosis. There is also note of mild inflammatory stranding adjacent to the descending sigmoid junction, mild acute diverticulitis versus epiploic appendagitis. The patient has been having some diarrhea and reports a history of "Crohn's diagnosis when I was a child" but is not on any treatment for this. She is not tender in the left lower quadrant on exam. Patient requiring multiple doses of IV Dilaudid for pain management. I spoke on the phone with Dr. Ricketts, urology, he did not feel any antibiotics were needed at this time. He felt it reasonable for the patient to be admitted for pain management and will plan to keep the patient n.p.o. at midnight for stent placement tomorrow. Patient reassessed throughout ED stay, she has remained hemodynamically stable, afebrile, and pain is reasonably controlled with IV Dilaudid. The patient was updated on all results and I discussed the option of admission, the patient was agreeable to this plan. Dr. [facility] is admitting the patient. The patient was stable at the time of admission. Patient discussed with Dr. Salinas, ED attending, who agrees with my assessment, plan, and disposition. The chart was completed utilizing [employer] Speech voice recognition software. Grammatical errors, random word insertions, pronoun errors, and incomplete sentences are an occasional consequence of this system due to software limitations, ambient noise, and hardware issues. Any formal questions or concerns about the content, text, or information contained within the body of this dictation should be directly addressed to the nurse practitioner for clarification. Past Med/Surg History Problem List (Updated 07/29/23 @ 20:17 by ANTONIO John) Calculus of proximal left ureter (Acute) Encounter for pre-operative examination Constipation S/P ureteral stent placement Nephrolithiasis Ureteral stent placement Kidney stones Metabolic syndrome Urinary tract infection (Acute) Hydronephrosis with renal and ureteral calculous obstruction (Acute) Sepsis Acute respiratory failure with hypoxia Renal colic (Acute) Asthma Hypertension Arthritis Kidney stone Medical History Asthma Crohns disease NO MEDICATIONS. WELL CONTROLLED WITH DIET. GERD (gastroesophageal reflux disease) CURRENT, NO MEDS Kidney stones Migraine CONTROLLED LATELY Sinus tachycardia does not follow w/ cardio, controlled w/ metoprolol Surgical History H/O bilateral breast reduction surgery H/O wrist surgery LEFT History of colonoscopy History of esophagogastroduodenoscopy (EGD) History of hysterectomy MIREYA BSO History of laparoscopy History of lithotripsy Hx of cholecystectomy LAP Hx of cystoscopy Family History Uncle Family history of diabetes mellitus Father FHx: prostate cancer Esophageal cancer Brother Hypertension Mother Cervical cancer Social History Smoking Status: Never smoker Tobacco Type: Cigarettes Cigarettes Per Day: quit 16 yrs ago; Second Hand Exposure: No; Do You Dip or Chew Tobacco: No; Hx Alcohol Use: No Hx Substance Use: No Preferred Language: Tristanian Communication Ability: Effective Visual Impairment: No Limitations Undercover Agent Required: No Beliefs That Will Affect Care: None marital status: Current Living Situation: Other Current Living Situation Comment: lives with aunt 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 Feels Safe at Home: Yes Assistive Devices: None Allergies Allergies Allergy/AdvReac Type Severity Reaction Status Date / Time No Known Allergies Allergy Mild Verified 07/29/23 18:27 Home Meds Home Medications Medication Instructions Recorded Confirmed acetaminophen 500 mg tablet 1,000 mg PO QAM 09/11/22 07/29/23 (Tylenol Extra Strength) metoprolol tartrate 25 mg tablet 25 mg PO QAM 09/11/22 07/29/23 albuterol sulfate 90 mcg/actuation 1 puff inhalation QID PRN 09/26/22 07/29/23 aerosol inhaler Shortness Of Breath Or Wheezing acetaminophen 500 mg tablet 1,000 mg PO Q6H PRN Pain 07/29/23 07/29/23 (Tylenol Extra Strength) aspirin 81 mg tablet,delayed 81 mg PO DAILY 07/29/23 07/29/23 release cyanocobalamin (vitamin B-12) 1,000 mcg subcut .2-3 TIMES PER 07/29/23 07/29/23 1,000 mcg/mL injection solution WEEK ergocalciferol (vitamin D2) 1,250 1,250 mcg PO WK 07/29/23 07/29/23 mcg (50,000 unit) capsule gabapentin 300 mg capsule 300 mg PO TID 07/29/23 07/29/23 phentermine 37.5 mg tablet 37.5 mg PO DAILYBB 07/29/23 07/29/23 Results & Data (ED) Vital Signs Vital Signs - 24 hr 07/29/23 13:42 07/29/23 15:41 07/29/23 15:44 Temperature 36.6 C 37.6 C H Temperature Source Temporal Artery Scan Oral Pulse Rate 104 H 86 Pulse Rate [Left Finger] 90 Pulse Rhythm Regular Pulse Rhythm [Left Finger] Regular Pulse Strength [Left Finger] Respiratory Rate 18 30 H 27 H Respiratory Effort / Characteristics Labored Respiratory Depth Respiratory Pattern Regular Blood Pressure 117/78 Blood Pressure [Right Arm] 114/86 Blood Pressure Mean 91 Blood Pressure Mean [Right Arm] 95 Blood Pressure Position [Right Arm] Semi-fowlers Pulse Oximetry 98 98 96 Oxygen Delivery Method Room Air Room Air Sepsis Recent Fever Within 48 Hours No Sepsis New/Unexplained Change in Mental Status N/A Sepsis Action Taken by Nursing No Action Required 07/29/23 16:17 07/29/23 17:15 07/29/23 18:12 Temperature 36.6 C Temperature Source Oral Pulse Rate 85 Pulse Rate [Left Finger] 95 H 94 H Pulse Rhythm Pulse Rhythm [Left Finger] Regular Regular Pulse Strength [Left Finger] Normal Normal Respiratory Rate 22 14 Respiratory Effort / Characteristics Labored Non-Labored Respiratory Depth Normal Normal Respiratory Pattern Regular Regular Blood Pressure Blood Pressure [Right Arm] 121/88 130/87 Blood Pressure Mean Blood Pressure Mean [Right Arm] 99 101 Blood Pressure Position [Right Arm] Semi-fowlers Pulse Oximetry 97 97 Oxygen Delivery Method Room Air Room Air Sepsis Recent Fever Within 48 Hours Sepsis New/Unexplained Change in Mental Status Sepsis Action Taken by Nursing 07/29/23 19:00 07/29/23 19:58 Temperature Temperature Source Pulse Rate 97 H 91 H Pulse Rate [Left Finger] Pulse Rhythm Pulse Rhythm [Left Finger] Pulse Strength [Left Finger] Respiratory Rate 17 Respiratory Effort / Characteristics Respiratory Depth Respiratory Pattern Blood Pressure 122/92 Blood Pressure [Right Arm] Blood Pressure Mean 102 Blood Pressure Mean [Right Arm] Blood Pressure Position [Right Arm] Pulse Oximetry 96 Oxygen Delivery Method Room Air Sepsis Recent Fever Within 48 Hours Sepsis New/Unexplained Change in Mental Status Sepsis Action Taken by Nursing Laboratory Data 07/29/23 15:20 07/29/23 15:20 Lab Results 07/29/23 07/29/23 Range/Units 15:00 15:20 WBC 10.36 (4.8-10.8) K/ul RBC 5.19 (4.20-5.40) M/uL Hgb 14.3 (12.0-16.0) g/dl Hct 43.7 (37.0-47.0) % MCV 84.2 (80.0-100.0) fL MCH 27.6 (25.0-34.0) pg MCHC 32.7 (32.0-36.0) g/dL RDW Std Deviation 42.5 (36.4-46.3) fL RDW Coeff of Tisha 13.8 (11.5-14.5) % Plt Count 367 (130-400) K/uL MPV 10.2 (9.4-12.4) fL Immature Gran % (Auto) 0.8 % Neut % (Auto) 64.0 % Lymph % (Auto) 25.4 % [place] % (Auto) 8.3 % Eos % (Auto) 0.8 % Baso % (Auto) 0.7 % Neut # (Auto) 6.64 H (1.40-6.50) K/uL Lymph # (Auto) 2.63 (1.20-3.40) K/uL [place] # (Auto) 0.86 H (0.11-0.59) K/uL Eos # (Auto) 0.08 (0.00-0.50) K/uL Baso # (Auto) 0.07 (0.00-0.20) K/uL Immature Gran # (Auto) 0.08 (0.01-0.20) K/uL Sodium 142 (136-145) mmol/L Potassium 4.0 (3.5-5.1) mmol/L Chloride 109 H (98-107) mmol/L Carbon Dioxide 24 (21-32) mmol/L Anion Gap 9 (3-11) BUN 15 (6-23) mg/dl Creatinine 0.87 (0.6-1.2) mg/dl Est Cr Clr Drug Dosing 91.7 ml/min Est GFR ( Amer) 90.7 ml/min Est GFR (Non-Af Amer) 78.2 ml/min BUN/Creatinine Ratio 17.2 (10-20) Glucose 108 H (70-99(Fasting)) mg/dl Calcium 10.3 (8.6-10.3) mg/dl Total Bilirubin 0.3 (0.2-1.0) mg/dl AST 15 (13-39) U/L ALT 18 (7-52) U/L Alkaline Phosphatase 89 (34-104) U/L Total Protein 7.5 (6.0-8.3) gm/dl Albumin 4.2 (3.4-5.0) gm/dl Globulin 3.3 (2.5-4.0) gm/dl Albumin/Globulin Ratio 1.3 (0.9-2) Lipase 18 (11-82) U/L Urine Color Dark Yellow Urine Appearance Cloudy A (Clear) Urine pH 6.0 (4.5-7.5) Ur Specific [place] 1.037 H (1.000-1.030) Urine Protein 2+ H (Negative) Urine Glucose (UA) Negative (Negative) Urine Ketones Trace H (Negative) Urine Blood 3+ H (Negative) Urine Nitrite Negative (Negative) Urine Bilirubin Negative (Negative) Urine Urobilinogen Negative (Negative) Ur Leukocyte Esterase Trace H (Negative) Urine WBC (Auto) 6-10 H (0-5) /hpf Urine RBC (Auto) >20 H (0-2) /hpf U Hyaline Cast (Auto) 0-2 (0-2) /lpf U Epithel Cells (Auto) 11-20 H (0-2) /hpf Urine Bacteria (Auto) None Seen (None Seen) Calcium Oxalate Crystal Present A (None Prsent) Administered Medications Hydromorphone HCl (Hydromorphone Inj 1 Mg/Ml Syringe) 1 mg IV Q3H PRN PRN Reason: Severe Pain (Scale 7, 8, 9,10) Stop: 08/12/23 19:29 Last Admin: 07/29/23 20:02 Dose: 1 mg Documented By: ML Lactated Ringer's (Lr) 1,000 mls @ 80 mls/hr IV .[id number] CELINA Stop: 08/28/23 19:44 Last Admin: 07/29/23 20:01 Dose: 80 mls/hr Documented By: [facility] Discontinued Medications Hydromorphone HCl (Hydromorphone Inj 0.5 Mg/0.5 Ml Syr) 0.5 mg IV NOW STA Stop: 07/29/23 14:35 Last Admin: 07/29/23 15:32 Dose: 0.5 mg Documented By: KIP Hydromorphone HCl (Hydromorphone Inj 0.5 Mg/0.5 Ml Syr) 0.5 mg IV NOW STA Stop: 07/29/23 16:05 Last Admin: 07/29/23 16:09 Dose: 0.5 mg Documented By: KIP Hydromorphone HCl (Hydromorphone Inj 0.5 Mg/0.5 Ml Syr) 0.5 mg IV NOW STA Stop: 07/29/23 16:45 Last Admin: 07/29/23 16:50 Dose: 0.5 mg Documented By: KIP Hydromorphone HCl (Hydromorphone Inj 0.5 Mg/0.5 Ml Syr) 0.5 mg IV NOW STA Stop: 07/29/23 18:59 Last Admin: 07/29/23 19:04 Dose: 0.5 mg Documented By: ARABELLA Sodium Chloride (Nss) 1,000 mls @ 999 mls/hr IV .Q1H1M STA Stop: 07/29/23 15:34 Last Infusion: 07/29/23 17:28 Dose: Infused Documented By: Admin: 07/29/23 15:35 Dose: 999 mls/hr Documented By: KIP Acetaminophen (Ofirmev) 1,000 mg in 100 mls @ 400 mls/hr IV NOW STA Stop: 07/29/23 16:06 Last Admin: 07/29/23 15:59 Dose: Not Given Documented By: KIP Piperacillin Sod/Tazobactam Sod (Zosyn) 4.5 gm in 100 mls @ 200 mls/hr IV NOW ONE Stop: 07/29/23 20:14 Last Admin: 07/29/23 20:01 Dose: 200 mls/hr Documented By: ARABELLA Ketorolac Tromethamine (Ketorolac Tromethamine 15 Mg/Ml Vial) 15 mg IV NOW STA Stop: 07/29/23 14:35 Last Admin: 07/29/23 15:34 Dose: 15 mg Documented By: KIP Ondansetron HCl (Ondansetron Inj 2 Mg/Ml 2 Ml Vial) 4 mg IV NOW STA Stop: 07/29/23 14:35 Last Admin: 07/29/23 15:31 Dose: 4 mg Documented By: KIP Imaging Data Radiologist's Impression: Abdomen/Pelvis CT 07/29/23 14:[address] WITHOUT CONTRAST CT DOSE: 1459.34 mGy.cm HISTORY: Acute left flank pain left flank pain, h/o kidney stones TECHNIQUE: Multiaxial CT images of the abdomen and pelvis were performed without contrast. A dose lowering technique was utilized adhering to the principles of ALARA. COMPARISON STUDY: 09/11/2022 FINDINGS: Clear lung bases. No free air. Unenhanced spleen, pancreas and adrenal glands are unremarkable. Cholecystectomy. Unremarkable liver which is prominent in size. Cortical scarring versus angiomyolipoma of the posterior interpolar right kidney, 1.3 cm. Punctate nonobstructing right nephrolithiasis. Nonobstructing left renal calculi measuring up to 4 mm. 10 mm complex cyst of the superior pole left kidney. Mild left-sided hydronephrosis secondary to a 5 x 4 x 6 cm calculus at the left ureteropelvic junction. Unremarkable urinary bladder nephrectomy. No bowel obstruction. Mild inflammatory stranding adjacent to descending sigmoid junction on image 274. Normal appendix. Tiny fat filled umbilical hernia. No acute fracture. L2 vertebral body hemangioma. IMPRESSION: 1. Mild left-sided hydronephrosis secondary to an obstructing 6 mm bladder calculus at the left ureteropelvic junction. 2. Nonobstructing bilateral nephrolithiasis. 3. Mild focal inflammatory stranding adjacent to the descending sigmoid junction may represent mild acute diverticulitis versus epiploic appendagitis. 4. Cholecystectomy. ACT 112: Negative or not required by law. The above report was generated using voice recognition software. It may contain grammatical, syntax or spelling errors. Electronically signed by: Behzad Fish M.D. 07/29/2023 6:10 PM Discharge Plan Visit Data Chief Complaint: Flank Pain Stated Complaint: LEFT FLANK PAIN ED Provider: Kimo Salinas ED Midlevel Provider: Linette Campos Discharge Problem: Calculus of proximal left ureter Patient Disposition: Admitted As Inpatient Condition: Good Forms Stand Alone Forms: [employer] Prescriptions Prescriptions: No Action albuterol sulfate 90 mcg/actuation Hfa Aerosol Inhaler 1 puff INHALATION QID PRN (Reason: Shortness Of Breath Or Wheezing) acetaminophen [Tylenol Extra Strength] 500 mg Tablet 1,000 mg PO QAM metoprolol tartrate 25 mg tablet 25 mg PO QAM gabapentin 300 mg capsule 300 mg PO TID phentermine 37.5 mg tablet 37.5 mg PO DAILYBB cyanocobalamin (vitamin B-12) 1,000 mcg/mL solution 1,000 mcg subcut .2-3 TIMES PER WEEK ergocalciferol (vitamin D2) 1,250 mcg (50,000 unit) capsule 1,250 mcg PO WK acetaminophen [Tylenol Extra Strength] 500 mg Tablet 1,000 mg PO Q6H PRN (Reason: Pain) aspirin [Aspirin Low-Strength] 81 mg Tablet,Delayed Release (Dr/Ec) 81 mg PO DAILY Referrals Referrals: Mac Allan [Primary Care Provider] -
[2023-07-29] MEDS: ONDANSETRON INJ 2 MG/ML 2 ML VIAL IV STA (15:31)
[2023-07-29] MEDS: HYDROmorphone INJ 0.5 MG/0.5 ML SYR IV STA ×4 (15:32→19:04)
[2023-07-29] MEDS: KETOROLAC TROMETHAMINE 15 MG/ML VIAL IV STA (15:34)
[2023-07-29] MEDS: SODIUM CHLORIDE 0.9% 1,000 ML IV STA (15:35)
[2023-07-29 15:45] LABS: Basophils # (auto) 0.07 K/uL (0.00-0.20); Basophils % (auto) 0.7 %; Eosinophils # (auto) 0.08 K/uL (0.00-0.50); Eosinophils % (auto) 0.8 %; Hematocrit (blood only) 43.7 % (37.0-47.0); Hemoglobin 14.3 g/dl (12.0-16.0); Immature Granulocytes # (auto) 0.08 K/uL (0.01-0.20); Immature Granulocytes % (auto) 0.8 %; Lymphocytes # (auto) 2.63 K/uL (1.20-3.40); Lymphocytes % (auto) 25.4 %; Mean Corpuscular Hemoglobin 27.6 pg (25.0-34.0); Mean Corpuscular Hgb Conc 32.7 g/dL (32.0-36.0); Mean Corpuscular Volume 84.2 fL (80.0-100.0); Mean Platelet Volume 10.2 fL (9.4-12.4); Monocytes # (auto) 0.86 K/uL (0.11-0.59); Monocytes % (auto) 8.3 %; Neutrophils # (auto) 6.64 K/uL (1.40-6.50); Platelet Count 367 K/uL (130-400); RDW Coefficient of Variation 13.8 % (11.5-14.5); RDW Standard Deviation 42.5 fL (36.4-46.3); Red Blood Count 5.19 M/uL (4.20-5.40); White Blood Count 10.36 K/ul (4.8-10.8)
[2023-07-29] MEDS: ACETAMINOPHEN 1,000 MG/100 ML VIAL IV STA (15:59)
[2023-07-29 16:02] LABS: Albumin Globulin Ratio 1.3 (0.9-2); Albumin Level 4.2 gm/dl (3.4-5.0); BUN Creatinine Ratio 17.2 (10-20); Bilirubin,Total 0.3 mg/dl (0.2-1.0); Calcium 10.3 mg/dl (8.6-10.3); Creatinine Clr Calc Pharmacy 91.7 ml/min; Est GFR (African American) 90.7 ml/min; Est GFR (Non-African American) 78.2 ml/min; Globulin 3.3 gm/dl (2.5-4.0); Total Protein 7.5 gm/dl (6.0-8.3)
[2023-07-29 16:55] LABS: Appearance Urine Cloudy (Clear); Bacteria Urine Automated None Seen (None Seen); Bilirubin Urine Negative (Negative); Blood Urine 3+ (Negative); Calcium Oxalate Crystals Urine Present (None Prsent); Cast Urine Automated 0-2 /lpf (0-2); Color Urine Dark Yellow; Glucose Urine UA Negative (Negative); Ketones Urine Trace (Negative); Leukocyte Esterase Urine Trace (Negative); Nitrite Urine Negative (Negative); Protein Urine 2+ (Negative); RBC Urine Automated >20 /hpf (0-2); Specific Gravity Urine 1.037 (1.000-1.030); Urobilinogen Urine Negative (Negative)
--- NOTE | 2023-07-29 18:11 | CT Scan Report ---
ABDOMEN AND PELVIS CT WITHOUT CONTRAST CT DOSE: 1459.34 mGy.cm HISTORY: Acute left flank pain left flank pain, h/o kidney stones TECHNIQUE: Multiaxial CT images of the abdomen and pelvis were performed without contrast. A dose lo wering technique was utilized adhering to the principles of ALARA. COMPARISON STUDY: 09/11/2022 FINDINGS: Clear lung bases. No free air. Unenhanced spleen, pancreas and adrenal glands are unremarka ble. Cholecystectomy. Unremarkable liver which is prominent in size. Cortical scarring versus angiomy olipoma of the posterior interpolar right kidney, 1.3 cm. Punctate nonobstructing right nephrolithias is. Nonobstructing left renal calculi measuring up to 4 mm. 10 mm complex cyst of the superior pole l eft kidney. Mild left-sided hydronephrosis secondary to a 5 x 4 x 6 cm calculus at the left ureterope lvic junction. Unremarkable urinary bladder nephrectomy. No bowel obstruction. Mild inflammatory stra nding adjacent to descending sigmoid junction on image 274. Normal appendix. Tiny fat filled umbilica l hernia. No acute fracture. L2 vertebral body hemangioma. IMPRESSION: 1. Mild left-sided hydronephrosis secondary to an obstructing 6 mm bladder calculus at the left urete ropelvic junction. 2. Nonobstructing bilateral nephrolithiasis. 3. Mild focal inflammatory stranding adjacent to the descending sigmoid junction may represent mild a cute diverticulitis versus epiploic appendagitis. 4. Cholecystectomy. ACT 112: Negative or not required by law. The above report was generated using voice recognition software. It may contain grammatical, syntax o r spelling errors. Electronically signed by: Behzad Fish M.D. 07/29/2023 6:10 PM
--- NOTE | 2023-07-29 19:42 | History & Physical Report ---
Date of Service July 29, 2023 Assessment & Plan (1) Obstruction of left ureteropelvic junction (UPJ) due to stone: (2) Hydronephrosis, left: (3) Crohns disease: (4) S/P ureteral stent placement: (5) Metabolic syndrome: (6) Asthma: (7) Hypertension: Plan 6 mm obstructing left UPJ stone/left hydronephrosis/history of right UPJ obstructing stone on 10-01 requiring stent placement- NPO From the ED received the following: Normal saline 1 L, Toradol 15 mg IV, Dilaudid 0.5 mg IV, Zofran 4 mg IV, and Tylenol 1 g IV Acetaminophen 1 g IV every 8 hours as needed for mild pain or fever Dilaudid 0.5 mg IV every 3 hours as needed for moderate pain Dilaudid 1 mg IV every 3 hours as needed for severe pain Pantoprazole 40 mg IV daily Zofran 4 mg IV every 6 hours as needed Follow urine culture and sensitivity Zosyn 4.5 g IV every 8 hours LR at 80 mL/h Consult urology Mild acute descending sigmoid diverticulitis versus epiploic appendagitis/history of Crohn's disease- Adjacent to obstructing left UPJ stone At risk for development of colovesical fistula Zosyn IV as noted above Will need to have a repeat CT to verify resolution Will need a colonoscopy after reestablishing with GI locally She reports a history of Crohn's disease at age 8, has not had any issues few decades Lumbosacral radiculopathy- Patient reports being treated for symptoms radiating from lumbar spine to bilateral anterior thighs Temporarily hold gabapentin while n.p.o. History of Present Illness Chief Complaint: The patient presents to the emergency department with complaint of 2 weeks of left lower quadrant and left lower back pain, which worsened considerably over the past 24 hours Primary Care Provider: Mac Allan The patient is a 48-year-old female with a past medical history including ureteral stone status post ureteral stent placement and removal 10/01, migraine, metabolic syndrome, hydronephrosis, asthma, hypertension and arthritis. She presents to the emergency department with 2 weeks of left lower quadrant and left flank pain, which worsened considerably over the past [address] scan of abdomen pelvis in the ED this evening shows left hydronephrosis, a 6 mm left UPJ obstructing stone, and adjacent mild acute descending sigmoid diverticulitis versus epiploic appendagitis. Allergies Allergy/AdvReac Type Severity Reaction Status Date / Time No Known Allergies Allergy Mild Verified 07/29/23 18:27 Home Medications Medication Instructions Recorded Confirmed Type acetaminophen 500 mg tablet 1,000 mg PO QAM 09/11/22 07/29/23 History (Tylenol Extra Strength) metoprolol tartrate 25 mg tablet 25 mg PO QAM 09/11/22 07/29/23 History albuterol sulfate 90 mcg/actuation 1 puff inhalation QID PRN 09/26/22 07/29/23 History aerosol inhaler Shortness Of Breath Or Wheezing acetaminophen 500 mg tablet 1,000 mg PO Q6H PRN Pain 07/29/23 07/29/23 History (Tylenol Extra Strength) aspirin 81 mg tablet,delayed 81 mg PO DAILY 07/29/23 07/29/23 History release cyanocobalamin (vitamin B-12) 1,000 mcg subcut .2-3 TIMES PER 07/29/23 07/29/23 History 1,000 mcg/mL injection solution WEEK ergocalciferol (vitamin D2) 1,250 1,250 mcg PO WK 07/29/23 07/29/23 History mcg (50,000 unit) capsule gabapentin 300 mg capsule 300 mg PO TID 07/29/23 07/29/23 History phentermine 37.5 mg tablet 37.5 mg PO DAILYBB 07/29/23 07/29/23 History Past Med/Surg History Problem List (Updated 07/29/23 @ 23:37 by Sriram Estrada MD) Crohns disease NO MEDICATIONS. WELL CONTROLLED WITH DIET. Hydronephrosis, left Obstruction of left ureteropelvic junction (UPJ) due to stone Encounter for pre-operative examination Constipation S/P ureteral stent placement Nephrolithiasis Ureteral stent placement Kidney stones Metabolic syndrome Urinary tract infection (Acute) Hydronephrosis with renal and ureteral calculous obstruction (Acute) Sepsis Acute respiratory failure with hypoxia Renal colic (Acute) Asthma Hypertension Arthritis Kidney stone Medical History (Updated 07/29/23 @ 23:37 by Sriram Estrada MD) Asthma Sinus tachycardia does not follow w/ cardio, controlled w/ metoprolol GERD (gastroesophageal reflux disease) CURRENT, NO MEDS Migraine CONTROLLED LATELY Kidney stones Surgical History Hx of cystoscopy History of lithotripsy History of esophagogastroduodenoscopy (EGD) History of colonoscopy H/O wrist surgery LEFT History of laparoscopy H/O bilateral breast reduction surgery Hx of cholecystectomy LAP History of hysterectomy MIREYA BSO Family History Uncle Family history of diabetes mellitus Father FHx: prostate cancer Esophageal cancer Brother Hypertension Mother Cervical cancer Social History Smoking Status: Never smoker Tobacco Type: Cigarettes Cigarettes Per Day: quit 16 yrs ago; Second Hand Exposure: No; Do You Dip or Chew Tobacco: No; Hx Alcohol Use: No Hx Substance Use: No Preferred Language: Nepali Communication Ability: Effective Visual Impairment: No Limitations Electrical Installation Supervisor Required: No Beliefs That Will Affect Care: None marital status: Current Living Situation: Significant Other Current Living Situation Comment: lives with aunt 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 Feels Safe at Home: Yes Assistive Devices: None Review of Systems Review of Systems: The patient denies chest pain, palpitations, shortness of breath, dyspnea on exertion, cough, lower extremity swelling, sore throat, fevers, chills, sweats, nausea, vomiting, diarrhea , constipation, blood in urine or stool, dysuria, urinary frequency or urgency, lightheadedness, dizziness, headache, memory loss, loss of consciousness, rash, abnormal bruising or bleeding, imbalance, focal or generalized weakness, numbness or tingling in arms or legs, generalized arthralgias or myalgias, neck pain, or night sweats. The review of systems is otherwise negative other than for that already noted above, and at least 10 systems have been reviewed. Physical Exam Physical Exam: The patient is awake, alert and oriented 3, well developed and well nourished, normocephalic and atraumatic, lying in bed and in mild/moderate distress secondary to left lower quadrant pain HEENT--PERRL, EOMI, mucous membranes and oropharynx dry. Neck--supple. No JVD. No bruits. Thyroid normal, trachea midline, no adenopathy. Heart--normal S1 and S2. No murmurs, rubs or gallops. Lungs--clear bilaterally, no respiratory distress, no accessory muscle use. Abdomen--normal bowel sounds and soft. Tender left lower quadrant and left. Nondistended Extremities--No edema. Dermatologic--normal skin turgor, normal color, no abnormal lymph nodes, no rash. Neurologic--cranial nerves II through XII grossly intact. Rheumatologic--normal range of motion. Psychiatric--normal affect. Results & Data Results & Data Vital Signs (Past 12 Hours) Vital Signs Temp Pulse Pulse Resp BP BP Pulse Ox 07/29/23 19:00 97 H 17 122/92 96 07/29/23 18:12 94 H 14 130/87 97 07/29/23 17:15 36.6 C 95 H 22 121/88 97 07/29/23 16:17 85 07/29/23 15:44 86 27 H 96 07/29/23 15:41 37.6 C H 90 30 H 114/86 98 07/29/23 13:42 36.6 C 104 H 18 117/78 98 O2 Del Method 07/29/23 19:00 Room Air 07/29/23 18:12 Room Air 07/29/23 17:15 Room Air 07/29/23 16:17 07/29/23 15:44 Room Air 07/29/23 15:41 Room Air 07/29/23 13:42 Laboratory Results Laboratory Results WBC 10.36 K/ul (4.8-10.8) 07/29/23 15:20 RBC 5.19 M/uL (4.20-5.40) 07/29/23 15:20 Hgb 14.3 g/dl (12.0-16.0) 07/29/23 15:20 Hct 43.7 % (37.0-47.0) 07/29/23 15:20 MCV 84.2 fL (80.0-100.0) 07/29/23 15:20 MCH 27.6 pg (25.0-34.0) 07/29/23 15:20 MCHC 32.7 g/dL (32.0-36.0) 07/29/23 15:20 RDW Std Deviation 42.5 fL (36.4-46.3) 07/29/23 15:20 RDW Coeff of Tisha 13.8 % (11.5-14.5) 07/29/23 15:20 Plt Count 367 K/uL (130-400) 07/29/23 15:20 MPV 10.2 fL (9.4-12.4) 07/29/23 15:20 Immature Gran % (Auto) 0.8 % 07/29/23 15:20 Neut % (Auto) 64.0 % 07/29/23 15:20 Lymph % (Auto) 25.4 % 07/29/23 15:20 [place] % (Auto) 8.3 % 07/29/23 15:20 Eos % (Auto) 0.8 % 07/29/23 15:20 Baso % (Auto) 0.7 % 07/29/23 15:20 Neut # (Auto) 6.64 K/uL (1.40-6.50) H 07/29/23 15:20 Lymph # (Auto) 2.63 K/uL (1.20-3.40) 07/29/23 15:20 [place] # (Auto) 0.86 K/uL (0.11-0.59) H 07/29/23 15:20 Eos # (Auto) 0.08 K/uL (0.00-0.50) 07/29/23 15:20 Baso # (Auto) 0.07 K/uL (0.00-0.20) 07/29/23 15:20 Immature Gran # (Auto) 0.08 K/uL (0.01-0.20) 07/29/23 15:20 Sodium 142 mmol/L (136-145) 07/29/23 15:20 Potassium 4.0 mmol/L (3.5-5.1) 07/29/23 15:20 Chloride 109 mmol/L (98-107) H 07/29/23 15:20 Carbon Dioxide 24 mmol/L (21-32) 07/29/23 15:20 Anion Gap 9 (3-11) 07/29/23 15:20 BUN 15 mg/dl (6-23) 07/29/23 15:20 Creatinine 0.87 mg/dl (0.6-1.2) 07/29/23 15:20 Est Cr Clr Drug Dosing 91.7 ml/min 07/29/23 15:20 Est GFR ( Amer) 90.7 ml/min 07/29/23 15:20 Est GFR (Non-Af Amer) 78.2 ml/min 07/29/23 15:20 BUN/Creatinine Ratio 17.2 (10-20) 07/29/23 15:20 Glucose 108 mg/dl (70-99(Fasting)) H 07/29/23 15:20 Calcium 10.3 mg/dl (8.6-10.3) 07/29/23 15:20 Total Bilirubin 0.3 mg/dl (0.2-1.0) 07/29/23 15:20 AST 15 U/L (13-39) 07/29/23 15:20 ALT 18 U/L (7-52) 07/29/23 15:20 Alkaline Phosphatase 89 U/L (34-104) 07/29/23 15:20 Total Protein 7.5 gm/dl (6.0-8.3) 07/29/23 15:20 Albumin 4.2 gm/dl (3.4-5.0) 07/29/23 15:20 Globulin 3.3 gm/dl (2.5-4.0) 07/29/23 15:20 Albumin/Globulin Ratio 1.3 (0.9-2) 07/29/23 15:20 Lipase 18 U/L (11-82) 07/29/23 15:20 Urine Color Dark Yellow 07/29/23 15:00 Urine Appearance Cloudy (Clear) A 07/29/23 15:00 Urine pH 6.0 (4.5-7.5) 07/29/23 15:00 Ur Specific [place] 1.037 (1.000-1.030) H 07/29/23 15:00 Urine Protein 2+ (Negative) H 07/29/23 15:00 Urine Glucose (UA) Negative (Negative) 07/29/23 15:00 Urine Ketones Trace (Negative) H 07/29/23 15:00 Urine Blood 3+ (Negative) H 07/29/23 15:00 Urine Nitrite Negative (Negative) 07/29/23 15:00 Urine Bilirubin Negative (Negative) 07/29/23 15:00 Urine Urobilinogen Negative (Negative) 07/29/23 15:00 Ur Leukocyte Esterase Trace (Negative) H 07/29/23 15:00 Urine WBC (Auto) 6-10 /hpf (0-5) H 07/29/23 15:00 Urine RBC (Auto) >20 /hpf (0-2) H 07/29/23 15:00 U Hyaline Cast (Auto) 0-2 /lpf (0-2) 07/29/23 15:00 U Epithel Cells (Auto) 11-20 /hpf (0-2) H 07/29/23 15:00 Urine Bacteria (Auto) None Seen (None Seen) 07/29/23 15:00 Calcium Oxalate Crystal Present (None Prsent) A 07/29/23 15:00 Impressions Abdomen/Pelvis CT 07/29/23 14:[address] WITHOUT CONTRAST CT DOSE: 1459.34 mGy.cm HISTORY: Acute left flank pain left flank pain, h/o kidney stones TECHNIQUE: Multiaxial CT images of the abdomen and pelvis were performed without contrast. A dose lowering technique was utilized adhering to the principles of ALARA. COMPARISON STUDY: 09/11/2022 FINDINGS: Clear lung bases. No free air. Unenhanced spleen, pancreas and adrenal glands are unremarkable. Cholecystectomy. Unremarkable liver which is prominent in size. Cortical scarring versus angiomyolipoma of the posterior interpolar right kidney, 1.3 cm. Punctate nonobstructing right nephrolithiasis. Nonobstructing left renal calculi measuring up to 4 mm. 10 mm complex cyst of the superior pole left kidney. Mild left-sided hydronephrosis secondary to a 5 x 4 x 6 cm calculus at the left ureteropelvic junction. Unremarkable urinary bladder nephrectomy. No bowel obstruction. Mild inflammatory stranding adjacent to descending sigmoid junction on image 274. Normal appendix. Tiny fat filled umbilical hernia. No acute fracture. L2 vertebral body hemangioma. IMPRESSION: 1. Mild left-sided hydronephrosis secondary to an obstructing 6 mm bladder c alculus at the left ureteropelvic junction. 2. Nonobstructing bilateral nephrolithiasis. 3. Mild focal inflammatory stranding adjacent to the descending sigmoid junction may represent mild acute diverticulitis versus epiploic appendagitis. 4. Cholecystectomy. ACT 112: Negative or not required by law. The above report was generated using voice recognition software. It may contain grammatical, syntax or spelling errors. Electronically signed by: Behzad Fish M.D. 07/29/2023 6:10 PM Code Status & VTE Plan Code Status Full code VTE Prophylaxis Plan VTE Prophylaxis will be ordered: Yes PG Care Time/CCT Total # of Minutes Spent Total Time Spent with Patient: Total time spent is greater than 50% in coordination of care (as documented) at patient's floor/unit and/or counseling patient: Coding Level of Care Code 00594 INT INP/OBS CARE 3/75MIN Diagnoses Obstruction of left ureteropelvic junction (UPJ) due to stone N20.1 Hydronephrosis, left N13.30 Crohns disease K50.90 S/P ureteral stent placement Z96.0 Metabolic syndrome E88.81 Asthma J45.909 Hypertension I10
[2023-07-29] MEDS: PIPERACILLIN/TAZOBACTAM 4.5 GM/100 ML BAG IV ONE (20:01)
[2023-07-29] MEDS: LACTATED RINGER'S 1,000 ML IV SCH (20:01)
[2023-07-29] MEDS: HYDROmorphone INJ 1 MG/ML SYRINGE IV PRN (20:02)
[2023-07-29] MEDS: PANTOprazole 40 MG in SYRINGE 0 ML IV ONE (20:39)
[2023-07-29] MEDS ORDERED: ALBUTEROL HFA 8 GM INHALER INH PRN (21:03)
[2023-07-29] MEDS: ACETAMINOPHEN 1,000 MG/100 ML VIAL IV PRN (21:16)
[2023-07-29] MEDS: ONDANSETRON INJ 2 MG/ML 2 ML VIAL IV PRN (23:30)
[2023-07-30] MEDS: PIPERACILLIN/TAZOBACTAM 4.5 GM in DEXTROSE 5% MINI-B 100 ML IV SCH (01:13)
[2023-07-30 07:41] LABS: Basophils # (auto) 0.05 K/uL (0.00-0.20); Basophils % (auto) 0.8 %; Eosinophils # (auto) 0.09 K/uL (0.00-0.50); Eosinophils % (auto) 1.4 %; Hemoglobin 12.6 g/dl (12.0-16.0); Immature Granulocytes # (auto) 0.05 K/uL (0.01-0.20); Immature Granulocytes % (auto) 0.8 %; Lymphocytes # (auto) 2.01 K/uL (1.20-3.40); Lymphocytes % (auto) 31.5 %; Mean Corpuscular Hemoglobin 27.8 pg (25.0-34.0); Mean Corpuscular Hgb Conc 32.3 g/dL (32.0-36.0); Mean Corpuscular Volume 85.9 fL (80.0-100.0); Mean Platelet Volume 10.7 fL (9.4-12.4); Monocytes # (auto) 0.59 K/uL (0.11-0.59); Monocytes % (auto) 9.2 %; Neutrophils % (auto) 56.3 %; Platelet Count 268 K/uL (130-400); Platelet Estimate Normal (Normal); RDW Coefficient of Variation 13.9 % (11.5-14.5); RDW Standard Deviation 43.8 fL (36.4-46.3); Red Blood Count 4.54 M/uL (4.20-5.40); White Blood Count 6.39 K/ul (4.8-10.8)
[2023-07-30 07:44] LABS: Albumin Level 3.4 gm/dl (3.4-5.0); Anion Gap 6 (3-11); Blood Urea Nitrogen 12 mg/dl (6-23); Carbon Dioxide 24 mmol/L (21-32); Chloride 110 mmol/L (98-107); Creatinine Clr Calc Pharmacy 107.3 ml/min; Est GFR (African American) 108.5 ml/min; Est GFR (Non-African American) 93.6 ml/min; Glucose 101 mg/dl (70-99(Fasting)); Phosphorus 3.7 mg/dl (2.5-4.9); Sodium 140 mmol/L (136-145)
--- NOTE | 2023-07-30 09:00 | Urology Consultation ---
Date of Consultation July 30, 2023 Assessment & Plan (1) Obstruction of left ureteropelvic junction (UPJ) due to stone: (2) Hydronephrosis, left: 48-year-old female with history of kidney stones admitted for intractable left flank pain secondary to left UPJ stone and possible mild acute diverticulitis ve rsus epiploic appendagitis She is afebrile and hemodynamically stable Labs today show normal renal function and no leukocytosis Urine culture is pending Currently on IV Zosyn She continues to have moderate to severe left flank pain requiring IV analgesia Discussed options for stone management including left ureteral stent placement today with stone treatment at a later date Discussed outpatient surgery if pain can be controlled After discussion, she elects to proceed with left ureteral stent placement today We will proceed to the OR for cystoscopy, left ureteral stent placement and possible stone treatment depending on findings Risks and benefits of procedure to be reviewed with patient by Dr. Abhinav Stringer n.p.o. for procedure Continue with scheduled IV Zosyn preoperatively Continue supportive care, antibiotics and medical management per hospital medicine service Attending note: Patient independently assessed, examined, interviewed, and evaluated. Agree with note as above. Patient's vitals and labs were all reviewed. Pertinent values in the HPI and plan section. Imaging was reviewed interpreted by myself. Agree with read. Vitals were reviewed. Discussed findings extensively with patient and family. Reviewed with nurse practitioner as well as consulting physicians/team. Patient's complicated medical and surgical history was reviewed and summarized above. Patient's surgical, medical, social, and family history were all reviewed with pertinent values as above. Discussed patient's current diagnosis as well as concerns and issues. Reviewed different options moving forward. Discussed potential risks and benefits as well as possible options and concerns. Reviewed potential surgical options and interventions. Discussed potential issues and concerns related to intervention. Risk and benefits were discussed extensively with patient and any available family. Discussed potential risks related to anesthesia. Discussed risks of bleeding infection and injury. Risks and benefits discussed at length for procedure. These include bleeding, infection, injury to surrounding tissues or organs, and risks associated with anesthesia. Patient states understanding and agrees to proceed. Will sign consent and schedule. Plan for cystoscopy with left stent History of Present Illness Attending Physician: Breanne Edmondson MD History of Present Illness This is a 48-year-old female with past medical history of of kidney stones who presented to the emergency department on 07/29/2023 for evaluation of worsening left flank and abdominal pain. On arrival, she was afebrile and hemodynamically stable. Lab work showed creatinine 0.87, WBC 10.36, hemoglobin 14.3. Urinalysis showed 2+ protein, trace ketones, 3+ blood, trace LE, 6-10 WBC, >20 RBC, 11-20 epithelials, negative for bacteria; calcium oxalate crystal present. CT abdomen pelvis notable for an obstructing 6 mm left UPJ stone with mild left-sided hydronephrosis, additional nonobstructing bilateral nephrolithiasis. Mild focal inflammatory stranding adjacent to the descending sigmoid junction may represent mild acute diverticulitis versus epiploic appendagitis. ED course: IV fluids, hydromorphone, acetaminophen and, ketorolac and ondansetron. She was admitted to the hospital medicine service for pain management. Urology is consulted for left UPJ stone. Labs today: Creatinine 0.75, WBC 6.39, hemoglobin 12.6 Urine culture is pending Currently on IV Zosyn Patient seen and examined at bedside this morning. at bedside. She is resting in bed, arouses to her name. Continues to have left flank pain requiring IV analgesia. She reports her pain is currently 5 out of 10. She continues to have intermittent nausea. Denies fever or chills. She is voiding spontaneously. Denies dysuria or hematuria. She is currently NPO. Allergies Allergy/AdvReac Type Severity Reaction Status Date / Time No Known Allergies Allergy Mild Verified 07/29/23 18:27 Home Medications Medication Instructions Recorded Confirmed Type acetaminophen 500 mg tablet 1,000 mg PO QAM 09/11/22 07/29/23 History (Tylenol Extra Strength) metoprolol tartrate 25 mg tablet 25 mg PO QAM 09/11/22 07/29/23 History albuterol sulfate 90 mcg/actuation 1 puff inhalation QID PRN 09/26/22 07/29/23 History aerosol inhaler Shortness Of Breath Or Wheezing acetaminophen 500 mg tablet 1,000 mg PO Q6H PRN Pain 07/29/23 07/29/23 History (Tylenol Extra Strength) aspirin 81 mg tablet,delayed 81 mg PO DAILY 07/29/23 07/29/23 History release cyanocobalamin (vitamin B-12) 1,000 mcg subcut .2-3 TIMES PER 07/29/23 07/29/23 History 1,000 mcg/mL injection solution WEEK ergocalciferol (vitamin D2) 1,250 1,250 mcg PO WK 07/29/23 07/29/23 History mcg (50,000 unit) capsule gabapentin 300 mg capsule 300 mg PO TID 07/29/23 07/29/23 History phentermine 37.5 mg tablet 37.5 mg PO DAILYBB 07/29/23 07/29/23 History Patient History Medical History Asthma Sinus tachycardia does not follow w/ cardio, controlled w/ metoprolol GERD (gastroesophageal reflux disease) CURRENT, NO MEDS Migraine CONTROLLED LATELY Kidney stones Surgical History Hx of cystoscopy History of lithotripsy History of esophagogastroduodenoscopy (EGD) History of colonoscopy H/O wrist surgery LEFT History of laparoscopy H/O bilateral breast reduction surgery Hx of cholecystectomy LAP History of hysterectomy MIREYA BSO Family History Uncle Family history of diabetes mellitus Father FHx: prostate cancer Esophageal cancer Brother Hypertension Mother Cervical cancer Social History Smoking Status: Never smoker Tobacco Type: Cigarettes Cigarettes Per Day: quit 16 yrs ago; Second Hand Exposure: No; Do You Dip or Chew Tobacco: No; Hx Alcohol Use: No Hx Substance Use: No Preferred Language: Martiniquais Communication Ability: Effective Visual Impairment: No Limitations Meter Calibrator Required: No Beliefs That Will Affect Care: None marital status: Current Living Situation: Significant Other Current Living Situation Comment: lives with aunt 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 Other Information That Helps Us Care for You: No Feels Safe at Home: Yes Safety Concerns: Feels Safe At This Time Assistive Devices: None Review of Systems Review of Systems: All systems reviewed & are unremarkable except as noted in HPI & below Physical Exam Constitutional: well developed and well nourished; no acute distress Respiratory: normal respiratory effort; no respiratory distress and no labored breathing Gastrointestinal (Abdomen): Inspection/Auscultation: abdomen normal to inspection Musculoskeletal: Head/Neck/Chest: normocephalic Neurologic: moves all extremities and awake Psychiatric: Orientation: alert and oriented x 3 Results & Data Vital Signs (Past 12 Hours) Vital Signs Temp Pulse Resp BP Pulse Ox O2 Del Method 07/30/23 07:35 36.6 C 99 H 16 117/79 94 Room Air 07/30/23 07:30 Room Air 07/29/23 21:03 36.8 C 88 16 129/79 95 Room Air 07/29/23 21:00 Room Air PG Care Time/CCT Total # of Minutes Spent Total Time Spent with Patient: Total time spent is greater than 50% in coordination of care (as documented) at patient's floor/unit and/or counseling patient: Coding Level of Care Code 04840 IN/OBS CONSULT LVL 4,60M Diagnoses Obstruction of left ureteropelvic junction (UPJ) due to stone N20.1 Hydronephrosis, left N13.30
--- NOTE | 2023-07-30 10:16 | Hospitalist Progress Note ---
Date of Service July 30, 2023 Assessment & Plan (1) Obstruction of left ureteropelvic junction (UPJ) due to stone: (2) Hydronephrosis, left: (3) Crohns disease: (4) S/P ureteral stent placement: (5) Metabolic syndrome: (6) Asthma: (7) Hypertension: Plan Left ureteral obstructing stone With hydronephrosis Patient has a history of right kidney stone, Presents to the hospital worsening left sided pain and found to have a 6 mm obstructing left UPJ stone/left hydronephrosis/history of right UPJ obstructing stone on 10-01 requiring stent placement- Plan is for left ureteral stent placement and then at a later date removal of the stone. Continue IV antibiotics and also pain management. Appreciate urology recommendations Acute sigmoid diverticulitis Mild acute descending sigmoid diverticulitis versus epiploic appendagitis/history of Crohn's disease- Adjacent to obstructing left UPJ stone At risk for development of colovesical fistula Zosyn IV as noted above Will need to have a repeat CT to verify resolution Will need a colonoscopy after reestablishing with GI locally She reports a history of Crohn's disease at age 8, has not had any issues few decades Lumbosacral radiculopathy- Patient reports being treated for symptoms radiating from lumbar spine to bilateral anterior thighs Temporarily hold gabapentin while n.p.o. Admission and Anticipated Discharge Date Admission Date: July 29, 2023 Subjective Patient seen and examined, still a lot of pain, plan is for the OR later today Review of Systems Review of Systems: All systems reviewed are negative, apart from the ones contained in the history. Physical Exam Physical Exam: The patient is awake, alert and oriented 3, well developed and well nourished, normocephalic and atraumatic, lying in bed and in no acute distress. HEENT--PERRL, EOMI, mucous membranes and oropharynx mildly dry Neck--supple. No JVD. No bruits. Thyroid normal, trachea midline, no adenopathy. Heart--normal S1 and S2. No murmurs, rubs or gallops. Lungs--clear bilaterally, no respiratory distress, no accessory muscle use. Abdomen--normal bowel sounds and soft. Left flank tenderness Extremities--no cyanosis or clubbing. No edema. Dermatologic--normal skin turgor, normal color, no abnormal lymph nodes, no rash. Neurologic--cranial nerves II through XII grossly intact. Rheumatologic--normal range of motion. Psychiatric--normal affect. Results & Data Results & Data Vital Signs (Past 12 Hours) Vital Signs Temp Pulse Resp BP Pulse Ox O2 Del Method 07/30/23 07:35 97.9 F 99 H 16 117/79 94 Room Air 07/30/23 07:30 Room Air PG Care Time/CCT Total # of Minutes Spent Total Time Spent with Patient: Total time spent is greater than 50% in coordination of care (as documented) at patient's floor/unit and/or counseling patient: Coding Level of Care Code 98284 SUB INP/OBS CARE 2/35MIN Diagnoses Obstruction of left ureteropelvic junction (UPJ) due to stone N20.1 Hydronephrosis, left N13.30 Crohns disease K50.90 S/P ureteral stent placement Z96.0 Metabolic syndrome E88.81 Asthma J45.909 Hypertension I10 Time Spent (min) 35
[2023-07-30] MEDS: PANTOprazole 40 MG in SYRINGE 0 ML IV SCH (12:25)
[2023-07-30] MEDS ORDERED: fentaNYL citrate PF 100 MCG/2 ML VIAL ONE (14:28)
[2023-07-30] MEDS ORDERED: MIDAZOLAM HCL 1 MG/ML 2ML VIAL ONE (14:28)
[2023-07-30] MEDS ORDERED: ONDANSETRON INJ 2 MG/ML 2 ML VIAL ONE (14:28)
[2023-07-30] MEDS: LACTATED RINGER'S 1,000 ML IV SCH (14:43)
--- NOTE | 2023-07-30 14:47 | Anesthesiology Consultation ---
Date of Service July 30, 2023 Assessment & Plan Chart Review Chart Review: Acceptable Risk for Surgery Consults Requested none ASA [id number] Proposed Anesthesia Anesthesia Type: MAC History Surgery Operation Date: 07/30/23 09:10 Proposed Procedures p Cystoscopy, Left Ureteral Stent Placement, Possible Stone Treatment - Otis La, Height/Weight Height: 5 ft 5 in Weight: 101.8 kg Allergies Allergy/AdvReac Type Severity Reaction Status Date / Time No Known Allergies Allergy Mild Verified 07/29/23 18:27 Medications Home Medications Medication Instructions Recorded Confirmed Last Taken acetaminophen 500 mg tablet 1,000 mg PO QAM 09/11/22 07/29/23 07/29/23 (Tylenol Extra Strength) metoprolol tartrate 25 mg tablet 25 mg PO QAM 09/11/22 07/29/23 07/29/23 albuterol sulfate 90 mcg/actuation 1 puff inhalation QID PRN 09/26/22 07/29/23 Unknown aerosol inhaler Shortness Of Breath Or Wheezing acetaminophen 500 mg tablet 1,000 mg PO Q6H PRN Pain 07/29/23 07/29/23 Unknown (Tylenol Extra Strength) aspirin 81 mg tablet,delayed 81 mg PO DAILY 07/29/23 07/29/23 07/29/23 release cyanocobalamin (vitamin B-12) 1,000 mcg subcut .2-3 TIMES PER 07/29/23 07/29/23 Unknown 1,000 mcg/mL injection solution WEEK ergocalciferol (vitamin D2) 1,250 1,250 mcg PO WK 07/29/23 07/29/23 Unknown mcg (50,000 unit) capsule gabapentin 300 mg capsule 300 mg PO TID 07/29/23 07/29/23 07/29/23 phentermine 37.5 mg tablet 37.5 mg PO DAILYBB 07/29/23 07/29/23 Unknown Active Medications Generic Name Dose Route Start Last Admin Trade Name Freq PRN Reason Stop Dose Admin Hydromorphone HCl 1 mg 07/29/23 19:30 07/30/23 12:25 Hydromorphone Inj 1 Mg/Ml Syringe IV 08/12/23 19:29 1 mg Q3H PRN Administration Severe Pain (Scale 7, 8, 9,10) Piperacillin Sod/Tazobactam 100 mls @ 25 mls/hr 07/30/23 02:00 07/30/23 13:37 Sod 4.5 gm/ Dextrose IV 08/09/23 01:59 Infused Q8H CELINA Infusion Protocol Lactated Ringer's 1,000 mls @ 80 mls/hr 07/29/23 19:45 07/30/23 09:26 Lr IV 08/28/23 19:44 80 mls/hr .[id number] CELINA Administration Pantoprazole Sodium 40 mg/ 10 mls @ 5 mls/min 07/30/23 11:00 07/30/23 12:25 Syringe IV 08/29/23 10:59 5 mls/min DAILY@1100 CELINA Administration Acetaminophen 1,000 mg in 100 mls @ 400 mls/hr 07/29/23 21:03 07/30/23 12:45 Ofirmev IV 08/01/23 21:02 Infused Q8H PRN Infusion Pain or Fever Lactated Ringer's 1,000 mls @ 15 mls/hr 07/30/23 14:45 07/30/23 14:43 Lr IV 08/29/23 14:44 15 mls/hr .Q24H CELINA Administration Ondansetron HCl 4 mg 07/29/23 19:33 07/30/23 13:33 Ondansetron Inj 2 Mg/Ml 2 Ml Vial IV 08/28/23 19:32 4 mg Q6H PRN Administration NAUSEA/VOMITING NPO Date Last Intake of Fluids: 07/29/23 Time Last Intake of Fluids: 23:59 Date Last Intake of Solids: 07/29/23 Time Last Intake of Solids: 10:00 Past Medical History Medical History Asthma Sinus tachycardia does not follow w/ cardio, controlled w/ metoprolol GERD (gastroesophageal reflux disease) CURRENT, NO MEDS Migraine CONTROLLED LATELY Kidney stones Past Family History Family History Uncle Family history of diabetes mellitus Father FHx: prostate cancer Esophageal cancer Brother Hypertension Mother Cervical cancer Past Surgical History Surgical History Hx of cystoscopy History of lithotripsy History of esophagogastroduodenoscopy (EGD) History of colonoscopy H/O wrist surgery LEFT History of laparoscopy H/O bilateral breast reduction surgery Hx of cholecystectomy LAP History of hysterectomy MIREYA BSO Social History Smoking Status: Never smoker tobacco type: cigarettes Smoking cigarettes per day: quit 16 yrs ago Do You Dip or Chew Tobacco: No Hx Alcohol Use: No Alcohol type: other alcohol intake frequency: other Hx Substance Use: No substance use type: does not use Physical Exam Vital Signs Last Vital Signs Temp 36.8 C 07/30/23 14:30 Pulse 94 H 07/30/23 14:30 Resp 20 07/30/23 14:30 BP 127/91 07/30/23 14:30 Pulse Ox 98 07/30/23 14:30 O2 Del Method Room Air 07/30/23 14:30 Testing Laboratory Results 07/30/23 06:44 07/30/23 08:00 Urine Color Dark Yellow 07/29/23 15:00 Urine Appearance Cloudy (Clear) A 07/29/23 15:00 Urine pH 6.0 (4.5-7.5) 07/29/23 15:00 Ur Specific [place] 1.037 (1.000-1.030) H 07/29/23 15:00 Urine Protein 2+ (Negative) H 07/29/23 15:00 Urine Glucose (UA) Negative (Negative) 07/29/23 15:00 Urine Ketones Trace (Negative) H 07/29/23 15:00 Urine Nitrite Negative (Negative) 07/29/23 15:00 Ur Leukocyte Esterase Trace (Negative) H 07/29/23 15:00 Urine WBC (Auto) 6-10 /hpf (0-5) H 07/29/23 15:00 Urine RBC (Auto) >20 /hpf (0-2) H 07/29/23 15:00 U Hyaline Cast (Auto) 0-2 /lpf (0-2) 07/29/23 15:00 U Epithel Cells (Auto) 11-20 /hpf (0-2) H 07/29/23 15:00 Urine Bacteria (Auto) None Seen (None Seen) 07/29/23 15:00
[2023-07-30] MEDS ORDERED: DROPERIDOL 5 MG/2 ML VIAL ONE (14:50)
[2023-07-30] MEDS ORDERED: LIDOCAINE 2% 2 ML VIAL/AMP(20MG/ML) INFIL ONE (15:21)
[2023-07-30] MEDS ORDERED: PROPOFOL IV EMULSION 10 MG/ML 20 ML VIAL IV ONE (15:21)
--- NOTE | 2023-07-30 15:27 | Operative Report ---
PG Post Operative Report Pre & Post Diagnosis Operation Date: 07/30/23 09:10 Pre-Op Diagnosis: Obstruction of left ureteropelvic junction due to stone; Hydronephrosis, left Post-Op Diagnosis: Obstruction of left ureteropelvic junction due to stone; Hydronephrosis, left I identified the patient and participated in the time-out.: Yes Procedure Operation Date: 07/30/23 09:10 Actual Procedures p Cystoscopy with urethral dilation. Left Retrograde pyelogram and Ureteral Stent Placement(Left) - Otis La DO Surgeon Otis La, II, DO Videotape Sales Representative None Estimated Blood Loss 1 Findings Consistent with Post-Op Diagnosis Stent placed in good position. Significant meatal narrowing/distal urethra stricture. Dilated. Specimens None Drains 6 Fr x 24 cm Stent Left Anesthesia Type MAC Complications none Disposition Disposition: Recovery Room Indications Patient with obstruction. Risks and benefits discussed at length. Description of Procedure Patient was consented and brought back to the operating room. Patient was placed under anesthesia in the supine position and moved to the dorsal lithotomy position. Patient was prepped and draped in the regular sterile fashion. A time out was completed. A 30degree Cystoscope was placed into the urethra. Significant narrowing was noted at the meatus and distal urethra consistent with stricture. This was dilated. The scope was then placed in the bladder and the entire bladder was examined. The UO's were identified. The UO was cannulized with a catheter and a retrograde pyelogram was completed. A wire was then placed. With the wire in place, a 6 Fr Double J stent was placed. It was confirmed with fluoroscopy. With the stent in place, the bladder was emptied. The scope was removed. The patient was cleaned, aroused from anesthesia, and transferred to the pacu in stable condition having tolerated the procedure well with no complications. I was present and participated in all aspects of the procedure. The patient will be monitored in the PACU until transferred. Plan to treat stone after adequate antibiotic coverage. I attest to the content of the Intraoperative Record and any orders documented therein. Any exceptions are noted below.
[2023-07-30] MEDS ORDERED: ONDANSETRON INJ 2 MG/ML 2 ML VIAL IV PRN (15:29)
[2023-07-30] MEDS ORDERED: ePHEDrine sulfate 50 MG/ML AMP IV PRN (15:29)
[2023-07-30] MEDS ORDERED: ATROPINE SULFATE 0.1 MG/ML 10ML SYR IV PRN (15:29)
[2023-07-30] MEDS: fentaNYL citrate PF 100 MCG/2 ML VIAL IV PRN (15:33)
[2023-07-30] MEDS: fentaNYL citrate PF 100 MCG/2 ML VIAL ONE (15:35)
--- NOTE | 2023-07-30 15:48 | Fluoroscopy Report ---
FL retrograde includes kub CLINICAL HISTORY: Left stent COMPARISON STUDY: CT of the abdomen and pelvis July 29, 2023. FLUOROSCOPY TIME: 18 seconds. Ka, r: 5.1761 mGy FLUOROSCOPIC IMAGES: 2 FINDINGS: Fluoroscopy was provided during left retrograde pyelogram with left ureteral stent insertio n. Proximal aspect of the stent projects over the left renal pelvis. Distal aspect is within the blad alon. Left collecting system is partially opacified. IMPRESSION: Fluoroscopy provided during left retrograde with left ureteral stent insertion. ACT 112: Negative or not required by law. Electronically signed by: Don Campos M.D. 07/30/2023 3:47 PM
--- NOTE | 2023-07-30 16:02 | Anesthesiology Progress Note ---
Date of Service July 30, 2023 Anesthesia Post Procedure Vital Signs Vital Signs: Temp Pulse Pulse Pulse Resp BP BP 07/30/23 16:00 36.5 C 94 H 12 120/74 07/30/23 15:50 95 H 12 121/78 07/30/23 15:40 94 H 12 117/77 07/30/23 15:30 100 H 12 115/84 07/30/23 15:24 36.8 C 106 H 14 126/81 07/30/23 14:30 36.8 C 94 H 20 127/91 07/30/23 07:35 36.6 C 99 H 16 117/79 07/30/23 07:30 07/29/23 21:03 36.8 C 88 16 129/79 07/29/23 21:00 07/29/23 19:58 91 H 07/29/23 19:00 97 H 17 122/92 07/29/23 18:12 94 H 14 130/87 07/29/23 17:15 36.6 C 95 H 22 121/88 07/29/23 16:17 85 Pulse Ox O2 Del Method O2 Flow Rate 07/30/23 16:00 97 Nasal Cannula 2 07/30/23 15:50 97 Nasal Cannula 2 07/30/23 15:40 97 Oxymask 9 07/30/23 15:30 98 Oxymask 9 07/30/23 15:24 97 Oxymask 9 07/30/23 14:30 98 Room Air 07/30/23 07:35 94 Room Air 07/30/23 07:30 Room Air 07/29/23 21:03 95 Room Air 07/29/23 21:00 Room Air 07/29/23 19:58 07/29/23 19:00 96 Room Air 07/29/23 18:12 97 Room Air 07/29/23 17:15 97 Room Air 07/29/23 16:17 Pain Intensity Left Flank: Pain Intensity: 7 Left Abdomen: Pain Intensity: 4 Transfer of Care Handoff Completed per policy Notes Mental Status: alert / awake / arousable and participated in evaluation Patient Amnestic to Procedure: Yes Nausea / Vomiting: adequately controlled Pain: adequately controlled Airway Patency, RR, SpO2: stable & adequate BP & HR: stable & adequate Hydration State: stable & adequate Anesthetic Complications: no major complications apparent
[2023-07-31] MEDS: ONDANSETRON INJ 2 MG/ML 2 ML VIAL IV PRN (05:56)
[2023-07-31 07:15] LABS: Basophils # (auto) 0.05 K/uL (0.00-0.20); Basophils % (auto) 0.6 %; Eosinophils # (auto) 0.12 K/uL (0.00-0.50); Eosinophils % (auto) 1.5 %; Hematocrit (blood only) 38.9 % (37.0-47.0); Hemoglobin 12.5 g/dl (12.0-16.0); Immature Granulocytes # (auto) 0.04 K/uL (0.01-0.20); Immature Granulocytes % (auto) 0.5 %; Lymphocytes # (auto) 1.21 K/uL (1.20-3.40); Lymphocytes % (auto) 15.3 %; Mean Corpuscular Hemoglobin 27.5 pg (25.0-34.0); Mean Corpuscular Hgb Conc 32.1 g/dL (32.0-36.0); Mean Corpuscular Volume 85.7 fL (80.0-100.0); Mean Platelet Volume 9.9 fL (9.4-12.4); Monocytes # (auto) 0.63 K/uL (0.11-0.59); Monocytes % (auto) 7.9 %; Neutrophils # (auto) 5.88 K/uL (1.40-6.50); Neutrophils % (auto) 74.2 %; Platelet Count 303 K/uL (130-400); RDW Coefficient of Variation 13.4 % (11.5-14.5); RDW Standard Deviation 42.2 fL (36.4-46.3); Red Blood Count 4.54 M/uL (4.20-5.40); White Blood Count 7.93 K/ul (4.8-10.8)
[2023-07-31 07:39] LABS: Albumin Level 3.5 gm/dl (3.4-5.0); BUN Creatinine Ratio 9.1 (10-20); Calcium 9.4 mg/dl (8.6-10.3); Creatinine Clr Calc Pharmacy 104.5 ml/min; Est GFR (African American) 105.1 ml/min; Est GFR (Non-African American) 90.7 ml/min; Magnesium 1.8 mg/dl (1.7-2.4); Phosphorus 3.7 mg/dl (2.5-4.9)
[2023-07-31] MEDS: METOCLOPRAMIDE HCL INJ 5 MG/ML 2 ML VIAL IV ONE (08:57)
--- NOTE | 2023-07-31 11:22 | Urology Progress Note ---
Date of Service July 31, 2023 Assessment & Plan (1) Obstruction of left ureteropelvic junction (UPJ) due to stone: (2) Hydronephrosis, left: Plan: - Pt POD#1 s/p cystoscopy and left ureteral stent placement - Afebrile with stable vitals - Lab work reviewed - creatinine 0.77, WBC 7.93 - Urine culture is prelim with pin point growth, re-incubatingfollow culture - She has discomfort from left stent, reports ongoing nausea - Recommend continue supportive care, pain management and antibiotics - She is scheduled for definitive stone management next week - Okay to d/c from perspective when medically stable - Recommend d/c with course of antibiotics per culture, Tamsulosin, prn Pyridium, oxybutynin, anti-emetics, and analgesia for stent management - Expected clinical course reviewed, all questions answered - will sign off, please contact our service with any additional questions or concerns Admission and Anticipated Discharge Date Admission Date: July 29, 2023 Subjective Patient seen and examined at bedside this morning She is awake and resting in bed Reports left flank discomfort and nausea Voiding spontaneously, notes some discomfort with voids, hematuria clearing postprocedure Denies fever, chills, nausea or vomiting Review of Systems Constitutional: as per Subjective / HPI Gastrointestinal: as per Subjective / HPI Genitourinary: as per Subjective / HPI Physical Exam Constitutional: no acute distress Respiratory: normal respiratory effort; no respiratory distress and no labored breathing Gastrointestinal (Abdomen): Inspection/Auscultation: abdomen normal to inspection Musculoskeletal: Head/Neck/Chest: normocephalic Neurologic: moves all extremities and awake Psychiatric: Orientation: alert and oriented x 3 Results & Data Vital Signs (Past 12 Hours) Vital Signs Temp Pulse Resp BP Pulse Ox O2 Del Method 07/31/23 07:52 36.4 C L 87 16 116/75 93 Room Air 07/31/23 03:10 36.5 C 92 H 14 107/73 92 Room Air PG Care Time/CCT Total # of Minutes Spent Total Time Spent with Patient: Total time spent is greater than 50% in coordination of care (as documented) at patient's floor/unit and/or counseling patient: Coding Level of Care Code 41529 SUB INP/OBS CARE 25MIN Diagnoses Obstruction of left ureteropelvic junction (UPJ) due to stone N20.1 Hydronephrosis, left N13.30
--- NOTE | 2023-07-31 11:27 | Hospitalist Progress Note ---
Date of Service July 31, 2023 Assessment & Plan (1) Obstruction of left ureteropelvic junction (UPJ) due to stone: (2) Hydronephrosis, left: (3) Crohns disease: (4) S/P ureteral stent placement: (5) Metabolic syndrome: (6) Asthma: (7) Hypertension: Plan Left ureteral obstructing stone With hydronephrosis Patient has a history of right kidney stone, Presents to the hospital worsening left sided pain and found to have a 6 mm obstructing left UPJ stone/left hydronephrosis/history of right UPJ obstructing stone on 10-01 requiring stent placement- She is now day 1 s/p left ureteral stent placement Stone will be taken care of at a later date Continue IV antibiotics and also pain management. Appreciate urology recommendations Acute sigmoid diverticulitis Mild acute descending sigmoid diverticulitis versus epiploic appendagitis/histor y of Crohn's disease- Adjacent to obstructing left UPJ stone At risk for development of colovesical fistula Zosyn IV as noted above Will need to have a repeat CT to verify resolution Will need a colonoscopy after reestablishing with GI locally She reports a history of Crohn's disease at age 8, has not had any issues few decades Complains of nausea this morning Lumbosacral radiculopathy- Patient reports being treated for symptoms radiating from lumbar spine to bilateral anterior thighs Takes gabapentin at home Admission and Anticipated Discharge Date Admission Date: July 29, 2023 Subjective patient seen, complained of nausea and could not tolerate food, still has some pain Review of Systems Review of Systems: All systems reviewed are negative, apart from the ones contained in the history. Physical Exam Physical Exam: The patient is awake, alert and oriented 3, well developed and well nourished, normocephalic and atraumatic, lying in bed and in no acute distress. HEENT--PERRL, EOMI, mucous membranes and oropharynx mildly dry Neck--supple. No JVD. No bruits. Thyroid normal, trachea midline, no adenopathy. Heart--normal S1 and S2. No murmurs, rubs or gallops. Lungs--clear bilaterally, no respiratory distress, no accessory muscle use. Abdomen--normal bowel sounds and soft. Left flank tenderness Extremities--no cyanosis or clubbing. No edema. Dermatologic--normal skin turgor, normal color, no abnormal lymph nodes, no rash. Neurologic--cranial nerves II through XII grossly intact. Rheumatologic--normal range of motion. Psychiatric--normal affect. Results & Data Results & Data Vital Signs (Past 12 Hours) Vital Signs Temp Pulse Resp BP Pulse Ox O2 Del Method 07/31/23 07:52 97.5 F L 87 16 116/75 93 Room Air 07/31/23 03:10 97.7 F 92 H 14 107/73 92 Room Air PG Care Time/CCT Total # of Minutes Spent Total Time Spent with Patient: Total time spent is greater than 50% in coordination of care (as documented) at patient's floor/unit and/or counseling patient: Coding Level of Care Code 79478 SUB INP/OBS CARE 2/35MIN Diagnoses Obstruction of left ureteropelvic junction (UPJ) due to stone N20.1 Hydronephrosis, left N13.30 Crohns disease K50.90 S/P ureteral stent placement Z96.0 Metabolic syndrome E88.81 Asthma J45.909 Hypertension I10 Time Spent (min) 35
--- NOTE | 2023-07-31 17:41 | CT Scan Report ---
CT abd pelvis wo con CLINICAL HISTORY: right flank pain TECHNIQUE: Helical axial images of the abdomen and pelvis were obtained. Automated dose lowering tech niques and/or adjustment according to patient size were utilized for this exam. This exam was perfor med without intravenous contrast. CT DOSE: 1465.17 mGy.cm COMPARISON: Comparison is made to CT abdomen pelvis 07/29/2023 FINDINGS: Lower chest: Bibasilar atelectasis versus scarring is seen. Liver: Unremarkable. No focal lesions are seen. Gallbladder and biliary tree: Patient is status post cholecystectomy. No intra- or extrahepatic bilia ry ductal dilation. Pancreas: Unremarkable, no focal lesions. Spleen: Unremarkable. Adrenals: Unremarkable. Kidneys and ureters: There is a left nephroureteral stent. The proximal tip of the stent appears to l ie in the proximal ureter. Focal scarring is in the right kidney with no obstructive stone seen. Subc entimeter exophytic lesion from the superior pole of the left kidney likely represents proteinaceous or hemorrhagic cyst, although it is too small to characterize. Bladder: Unremarkable. Reproductive organs: Unremarkable. Bowel: The appendix is normal. Lymph nodes Retroperitoneal: Unremarkable. Pelvic: Unremarkable. Mesenteric: Unremarkable. Peritoneum: Minimal peritoneal fat stranding in the left lower quadrant is unchanged from prior exam. Vessels: Unremarkable. Abdominal wall: Unremarkable. Bones: Unremarkable. IMPRESSION: 1. No acute abnormality to explain right flank pain, in particular no evidence of pancreatitis or ob structive stone. 2. Interval placement of left nephroureteral stent without evidence of obstructive stone. Nonobstruc tive stones remain. Of note, the proximal portion of the stent terminates in the proximal ureter. 3. Redemonstration of mild inflammatory stranding adjacent to the descending sigmoid colon. ACT 112: Negative or not required by law. Electronically signed by: Toby Wilkerson M.D. 07/31/2023 5:39 PM
[2023-07-31] MEDS: KETOROLAC TROMETHAMINE 15 MG/ML VIAL IV PRN (18:36)
[2023-08-01] MEDS: METOCLOPRAMIDE HCL INJ 5 MG/ML 2 ML VIAL IV ONE (06:21)
[2023-08-01 06:43] LABS: Basophils # (auto) 0.04 K/uL (0.00-0.20); Basophils % (auto) 0.5 %; Eosinophils # (auto) 0.12 K/uL (0.00-0.50); Eosinophils % (auto) 1.5 %; Hematocrit (blood only) 39.7 % (37.0-47.0); Hemoglobin 12.8 g/dl (12.0-16.0); Immature Granulocytes # (auto) 0.07 K/uL (0.01-0.20); Immature Granulocytes % (auto) 0.9 %; Lymphocytes # (auto) 1.64 K/uL (1.20-3.40); Lymphocytes % (auto) 20.5 %; Mean Corpuscular Hemoglobin 27.6 pg (25.0-34.0); Mean Corpuscular Hgb Conc 32.2 g/dL (32.0-36.0); Mean Corpuscular Volume 85.7 fL (80.0-100.0); Mean Platelet Volume 10.1 fL (9.4-12.4); Monocytes # (auto) 0.68 K/uL (0.11-0.59); Monocytes % (auto) 8.5 %; Neutrophils # (auto) 5.46 K/uL (1.40-6.50); Neutrophils % (auto) 68.1 %; Platelet Count 313 K/uL (130-400); RDW Coefficient of Variation 13.3 % (11.5-14.5); RDW Standard Deviation 41.6 fL (36.4-46.3); Red Blood Count 4.63 M/uL (4.20-5.40); White Blood Count 8.01 K/ul (4.8-10.8)
[2023-08-01 07:22] LABS: Albumin Level 3.7 gm/dl (3.4-5.0); BUN Creatinine Ratio 11.5 (10-20); Calcium 9.6 mg/dl (8.6-10.3); Creatinine Clr Calc Pharmacy 103.2 ml/min; Est GFR (African American) 103.5 ml/min; Est GFR (Non-African American) 89.3 ml/min; Magnesium 1.9 mg/dl (1.7-2.4); Phosphorus 2.5 mg/dl (2.5-4.9)
--- NOTE | 2023-08-01 12:09 | Hospitalist Progress Note ---
Date of Service August 01, 2023 Assessment & Plan (1) Obstruction of left ureteropelvic junction (UPJ) due to stone: (2) Hydronephrosis, left: (3) Crohns disease: (4) S/P ureteral stent placement: (5) Metabolic syndrome: (6) Asthma: (7) Hypertension: Plan Left ureteral obstructing stone With hydronephrosis Patient has a history of right kidney stone, Presents to the hospital worsening left sided pain and found to have a 6 mm obstructing left UPJ stone/left hydronephrosis/history of right UPJ obstructing stone on 10-01 requiring stent placement- She is now day 2 s/p left ureteral stent placement Stone will be taken care of at a later date Continue IV antibiotics and also pain management. Appreciate urology recommendations Acute sigmoid diverticulitis Mild acute descending sigmoid diverticulitis versus epiploic appendagitis/histor y of Crohn's disease- Adjacent to obstructing left UPJ stone At risk for development of colovesical fistula Zosyn IV as noted above Repeat CT scan yesterday showed still some evidence of diverticulitis Will need a colonoscopy after reestablishing with GI locally She reports a history of Crohn's disease at age 8, has not had any issues few decades Complains of nausea this morning Lumbosacral radiculopathy- Patient reports being treated for symptoms radiating from lumbar spine to bilateral anterior thighs Takes gabapentin at home Admission and Anticipated Discharge Date Admission Date: July 29, 2023 Subjective patient seen, complained of nausea and could not tolerate food, still has some pain Review of Systems Review of Systems: All systems reviewed are negative, apart from the ones contained in the history. Physical Exam Physical Exam: The patient is awake, alert and oriented 3, well developed and well nourished, normocephalic and atraumatic, lying in bed and in no acute distress. HEENT--PERRL, EOMI, mucous membranes and oropharynx mildly dry Neck--supple. No JVD. No bruits. Thyroid normal, trachea midline, no adenopathy. Heart--normal S1 and S2. No murmurs, rubs or gallops. Lungs--clear bilaterally, no respiratory distress, no accessory muscle use. Abdomen--normal bowel sounds and soft. Left flank tenderness Extremities--no cyanosis or clubbing. No edema. Dermatologic--normal skin turgor, normal color, no abnormal lymph nodes, no rash. Neurologic--cranial nerves II through XII grossly intact. Rheumatologic--normal range of motion. Psychiatric--normal affect. Results & Data Results & Data Vital Signs (Past 12 Hours) Vital Signs Temp Pulse Resp BP Pulse Ox O2 Del Method 08/01/23 07:24 97.9 F 93 H 18 128/84 96 Room Air PG Care Time/CCT Total # of Minutes Spent Total Time Spent with Patient: Total time spent is greater than 50% in coordination of care (as documented) at patient's floor/unit and/or counseling patient: Coding Level of Care Code 87335 SUB INP/OBS CARE 2/35MIN Diagnoses Obstruction of left ureteropelvic junction (UPJ) due to stone N20.1 Hydronephrosis, left N13.30 Crohns disease K50.90 S/P ureteral stent placement Z96.0 Metabolic syndrome E88.81 Asthma J45.909 Hypertension I10 Time Spent (min) 35
[2023-08-01] MEDS: HYDROmorphone INJ 0.5 MG/0.5 ML SYR IV PRN (16:34)
[2023-08-02 08:09] LABS: Hematocrit (blood only) 40.2 % (37.0-47.0); Hemoglobin 13.2 g/dl (12.0-16.0); Mean Corpuscular Hemoglobin 27.8 pg (25.0-34.0); Mean Corpuscular Hgb Conc 32.8 g/dL (32.0-36.0); Mean Corpuscular Volume 84.8 fL (80.0-100.0); Mean Platelet Volume 10.1 fL (9.4-12.4); Platelet Count 315 K/uL (130-400); RDW Coefficient of Variation 13.2 % (11.5-14.5); RDW Standard Deviation 41.4 fL (36.4-46.3); Red Blood Count 4.74 M/uL (4.20-5.40); White Blood Count 6.84 K/ul (4.8-10.8)
[2023-08-02 08:24] LABS: BUN Creatinine Ratio 12.7 (10-20); Calcium 9.7 mg/dl (8.6-10.3); Creatinine Clr Calc Pharmacy 101.9 ml/min; Est GFR (African American) 101.9 ml/min; Est GFR (Non-African American) 87.9 ml/min; Potassium 3.8 mmol/L (3.5-5.1)
--- NOTE | 2023-08-02 11:22 | Discharge Summary ---
Date of Service August 02, 2023 Admission HPI Per Admitting Provider The patient is a 48-year-old female with a past medical history including ureteral stone status post ureteral stent placement and removal 10/01, migraine, metabolic syndrome, hydronephrosis, asthma, hypertension and arthritis. She presents to the emergency department with 2 weeks of left lower quadrant and left flank pain, which worsened considerably over the past [address] scan of abdomen pelvis in the ED this evening shows left hydronephrosis, a 6 mm left UPJ obstructing stone, and adjacent mild acute descending sigmoid diverticulitis versus epiploic appendagitis. Principal Diagnosis ureteral stone Discharge Exam The patient is awake, alert and oriented 3, well developed and well nourished, normocephalic and atraumatic, lying in bed and in no acute distress. HEENT--PERRL, EOMI, mucous membranes and oropharynx mildly dry Neck--supple. No JVD. No bruits. Thyroid normal, trachea midline, no adenopathy. Heart--normal S1 and S2. No murmurs, rubs or gallops. Lungs--clear bilaterally, no respiratory distress, no accessory muscle use. Abdomen--normal bowel sounds and soft. Left flank tenderness Extremities--no cyanosis or clubbing. No edema. Dermatologic--normal skin turgor, normal color, no abnormal lymph nodes, no rash. Neurologic--cranial nerves II through XII grossly intact. Rheumatologic--normal range of motion. Psychiatric--normal affect. Discharge Data Allergies Allergy/AdvReac Type Severity Reaction Status Date / Time No Known Allergies Allergy Mild Verified 07/29/23 18:27 Consultations 07/29/23 19:07 ED Decision to Admit Stat 07/29/23 21:03 Consult Urology Routine Procedures Performed Operation Date: 07/30/23 09:10 Actual Procedures p Cystoscopy, Left Ureteral Stent Placement(Left) - [place], Ordered Studies 07/29/23 14:35 CT abd pelvis wo con Stat 07/30/23 09:00 FL retrograde includes kub Routine 07/31/23 16:55 CT Abd and Pelvis [CT abd pelvis wo con] Urgent Hospital Course (1) Obstruction of left ureteropelvic junction (UPJ) due to stone: (2) Hydronephrosis, left: (3) Crohns disease: (4) S/P ureteral stent placement: (5) Metabolic syndrome: (6) Asthma: (7) Hypertension: Plan Left ureteral obstructing stone With hydronephrosis Patient has a history of right kidney stone, Presents to the hospital worsening left sided pain and found to have a 6 mm obstructing left UPJ stone/left hydronephrosis/history of right UPJ obstructing stone on 10-01 requiring stent placement- She is now day 2 s/p left ureteral stent placement Stone will be taken care of at a later date Continue IV antibiotics and also pain management. Transition to PO ciprofloxacin Appreciate urology recommendations Acute sigmoid diverticulitis Mild acute descending sigmoid diverticulitis versus epiploic appendagitis/history of Crohn's disease- Adjacent to obstructing left UPJ stone At risk for development of colovesical fistula Zosyn IV as noted above, transition to PO Flagyl Repeat CT scan yesterday showed still some evidence of diverticulitis Will need a colonoscopy after reestablishing with GI locally She reports a history of Crohn's disease at age 8, has not had any issues few decades Complains of nausea this morning Lumbosacral radiculopathy- Patient reports being treated for symptoms radiating from lumbar spine to bilateral anterior thighs Takes gabapentin at home Total Time Total Time Spent Total Time Spent (In Minutes): 35 Discharge Plan Discharge Items Patient Disposition: Home - Self-Care Reason For Visit: L HYDRO, L UPJ STONE, DIVERTICULITIS Discharge Diagnosis: diverticulitis, UTI Condition on Discharge: Good Activity: Resume your previous activity Non-emergency contact: Primary Care Provider and Urologist Call non-emergency contact if: you have any medication questions Follow-up/Referrals: Mac Allan [Primary Care Provider] - 08/09/23 8:20 am Diet: Regular Addtl Attending Provider Instructions: Please make appointment to follow-up with urologist Pending Studies at Discharge: No Stand-Alone Forms: [employer], Smoking Cessation Medications and DC Order Prescriptions: New ciprofloxacin HCl 500 mg tablet 500 mg PO BID Qty: 10 0RF metronidazole [Flagyl] 375 mg capsule 375 mg PO BID 5 Days Qty: 10 0RF ondansetron HCl 4 mg tablet 4 mg PO DAILY PRN (Reason: nausea and vomiting) 4 Days Qty: 10 0RF hydrocodone-acetaminophen 5-325 mg tablet 1 tab PO Q6H PRN (Reason: pain) Qty: 10 0RF Continued albuterol sulfate 90 mcg/actuation Hfa Aerosol Inhaler 1 puff INHALATION QID PRN (Reason: Shortness Of Breath Or Wheezing) acetaminophen [Tylenol Extra Strength] 500 mg Tablet 1,000 mg PO QAM metoprolol tartrate 25 mg tablet 25 mg PO QAM gabapentin 300 mg capsule 300 mg PO TID phentermine 37.5 mg tablet 37.5 mg PO DAILYBB cyanocobalamin (vitamin B-12) 1,000 mcg/mL solution 1,000 mcg subcut .2-3 TIMES PER WEEK ergocalciferol (vitamin D2) 1,250 mcg (50,000 unit) capsule 1,250 mcg PO WK acetaminophen [Tylenol Extra Strength] 500 mg Tablet 1,000 mg PO Q6H PRN (Reason: Pain) aspirin 81 mg Tablet,Delayed Release (Dr/Ec) 81 mg PO DAILY Discharge Orders: Discharge Order (Routine); Ordered 08/02/23 Ordered By: Breanne Edmondson Admission Data Admit Date/Time: 07/29/23 19:42 Attending Provider: Breanne Edmondson Admit Provider: Sriram Estrada Primary Care Provider: Mac Allan Other Providers: Sriram Estrada; Urbano Ricketts Coding Level of Care Code 62916 INP/OBS DISCH >30 MIN Diagnoses Obstruction of left ureteropelvic junction (UPJ) due to stone N20.1 Hydronephrosis, left N13.30 Crohns disease K50.90 S/P ureteral stent placement Z96.0 Metabolic syndrome E88.81 Asthma J45.909 Hypertension I10 Time Spent (min) 35
== END 2023-08-02 18:08 | disposition home or self-care (01) | DRG 660 ==
LOC: ED 13:41 → SUATTDRO 19:42 → 3N 19:42